=== PATIENT | male | born 1955 | race Caucasian/White ===

== ENCOUNTER 2021-02-15 09:41 | Inpatient (IN) | payer MEDICARE, SELFPAY ==
[2021-02-15] VITALS (16 sets, daily range): BP systolic 117–170; BP diastolic 76–101; PULSE 88–106; RESP 13–25; TEMP 36.1–36.9; O2SAT 83–99; BMI 27.0
--- NOTE | 2021-02-15 10:00 | EKG12_ITS ---
Test Reason : SOB Blood Pressure : / mmHG Vent. Rate : 094 BPM Atrial Rate : 094 BPM P-R Int : 164 ms QRS Dur : 130 ms QT Int : 384 ms P-R-T Axes : 077 068 060 degrees QTc Int : 480 ms Normal sinus rhythm Right atrial enlargement Right bundle branch block Abnormal ECG Confirmed by SAHRA PABON, YONATAN ([id number]), book editor PRAKASH ECHEVARRIA ([id number]) on 02/20/2021 9:30:42 AM Referred By: MICHELLE/NED Confirmed By:CASEY BOCANEGRA MD
--- NOTE | 2021-02-15 10:02 | ED.VIS.DYS ---
HPI History of Present Illness Chief Complaint: Shortness of Breath Informant: patient and family Narrative Narrative: Patient presents with dyspnea. This started approximately a week to 10 days ago. 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 He did sanding. He did try a mask. A couple days after that he started having dyspnea. He has been having a lot of wheezing. He has been using his inhalers as he does have COPD. However, when specifically asked he does have some myalgias. He also has some subjective fevers. No nausea vomiting or diarrhea. No loss of taste or smell. He has not had Covid vaccines. No known exposure to Covid. No one around him has been sick. His albuterol does help. Nothing really makes it worse. Patient does have a history of right-sided lung cancer. He states it was small and treated with chemotherapy and radiation. He is told it should be completely treated. This was done 4 years ago. [facility] Medical History AAA (abdominal aortic aneurysm) Acute respiratory failure with hypoxemia Lung cancer Home Medications albuterol sulfate 90 mcg/actuation aerosol inhaler 2 puff INHALATION Q6H PRN 02/15/21 [History Last Taken 02/15/21] aspirin 81 mg tablet,delayed release 81 mg PO DAILY 02/15/21 [History Last Taken 02/14/21] fluticasone fur. 100 mcg-umeclid 62.5 mcg-vilant 25 mcg inhalat.powder 1 inh INHALATION DAILY 02/15/21 [History Last Taken 02/15/21] levothyroxine 125 mcg PO DAILY 02/15/21 [History Last Taken 02/15/21] metoprolol succinate 25 mg tablet,extended release 24 hr 75 mg PO DAILY tab 02/15/21 [History Last Taken 02/14/21] primidone 50 mg tablet 150 mg PO QHS tab 02/15/21 [History Last Taken 02/14/21] Allergy/AdvReac Type Severity Reaction Status Date / Time No Known Allergies Allergy Unverified 02/15/21 09:47 Surgical History S/P AAA repair Social History Smoking Status: Former smoker ROS ROS ED Constitutional Constitutional ED: Reports chills Eyes Eyes: Denies blurry vision or change in vision ENT ENT ED: Reports rhinorrhea; Denies ear pain or sore throat Cardiovascular Cardiovascular: Denies chest pain Respiratory/Chest Respiratory/Chest: Reports cough and dyspnea; Denies sputum Gastrointestinal Gastrointestinal: Reports abdominal pain; Denies diarrhea, nausea or vomiting Genitourinary Genitourinary ED: Denies dysuria Musculoskeletal Musculoskeletal: Reports myalgias; Denies arthralgias Integumentary Denies rash Neurologic Neurologic: Denies headache(s), paresthesias or weakness Psychiatric Psychiatric: Denies depression Endocrine Endocrinology: Denies polydipsia or polyuria Hematologic/Lymphatic Hematologic/Lymphatic: Denies easy bleeding or easy bruising Allergic/Immunologic Allergic/Immunologic ED: Denies mouth swelling or urticaria EXAM Physical Exam Const Vital Signs: 02/15/21 09:42 02/15/21 09:44 02/15/21 10:22 Temperature 98.4 F Temperature Source Temporal Pulse Rate 104 H 106 H 94 Respiratory Rate 22 H 24 H 18 Respiratory Effort Short of Breath Labored Accessory Muscle Use Pursed Lip Retracting Respiratory Depth Normal Respiratory Pattern Tachypnea Blood Pressure 170/101 H Blood Pressure Mean 124 Pulse Ox 83 98 Oxygen Delivery Method Room Air Nasal Cannula Oxygen Flow Rate (L/min) 4 02/15/21 11:39 02/15/21 11:56 02/15/21 12:02 Temperature Temperature Source Pulse Rate 88 99 Respiratory Rate 20 H 18 Respiratory Effort Respiratory Depth Respiratory Pattern Blood Pressure 135/94 H Blood Pressure Mean 107 Pulse Ox 96 96 Oxygen Delivery Method Nasal Cannula Oxygen Flow Rate (L/min) 2 02/15/21 12:03 02/15/21 13:46 02/15/21 14:00 Temperature 98.4 F Temperature Source Temporal Pulse Rate 98 95 Respiratory Rate 25 H 13 Respiratory Effort Respiratory Depth Respiratory Pattern Blood Pressure 142/86 H Blood Pressure Mean 104 Pulse Ox 96 96 96 Oxygen Delivery Method Nasal Cannula Nasal Cannula Nasal Cannula Oxygen Flow Rate (L/min) 2 2 2 Positive well nourished and well developed General Appearance ED: well developed HEENT Reports moist mucous membranes Eyes General Eye ED: Negative for pale conjunctiva Neck no meningeal signs and no JVD Resp normal respiratory effort and No clear to auscultation bilaterally Auscultation: wheezes; Negative for rales, rhonchi or diminished lung sounds Cardio regular rate and regular rhythm GI non-tender Palpation: soft Back/Spine normal to inspection Extremity normal to inspection General Extremety ED: Negative for tenderness Neuro oriented x3 Sensorium / Orientation: alert, oriented to person and oriented to place Psych mental status grossly normal Thought Process: normal thought process Skin no wounds Lesions: no lesions Rashes: no rashes MDM MDM MDM Narrative Medical decision making narrative: Blood work shows normal lactate. Electrolytes are normal. CBC is normal. Chest x-ray shows some increased density in the right apex which may be due to radiation changes. Cannot exclude an underlying mass. Patient is still wheezing. He was feeling a bit better though. We gave him another breathing treatment. We cannot get him off oxygen. Even trying to walk him he desaturated to 89% very quickly when he just got off the bed on 2 L of oxygen. He is not on oxygen at home. I think he needs to come in. After calling for admission, the patient developed pain in the left anterior chest. He states it was not there before it just started. It seems to be focal. He describes it as a cramp. I did do a repeat EKG that does not show interval change. However, with his dyspnea and his history we will do a CTA at this time. This is currently pending. The CTA did not show signs of pulmonary embolus. Patient is being admitted. Lab Data Attestation: I reviewed the patient's lab results. Labs: Laboratory Results - last 24 hr 02/15/21 02/15/21 02/15/21 10:05 10:05 10:05 WBC 10.1 RBC 4.58 L Hgb 14.9 Hct 42.5 MCV 92.8 MCH 32.5 H MCHC 35.1 RDW Std Deviation 46.5 H RDW Coeff of Yola 13.8 Plt Count 178 MPV 9.7 Immature Gran % (Auto) 0.500 Neut % (Auto) 80.7 H Lymph % (Auto) 7.4 L [place] % (Auto) 11.2 H Eos % (Auto) 0.0 Baso % (Auto) 0.2 Absolute Neuts (auto) 8.2 H Absolute Lymphs (auto) 0.75 L Nucleated RBC % 0 Sodium 128 L Potassium 4.4 Chloride 90 L Carbon Dioxide 26.0 Anion Gap 12 BUN 18 Creatinine 1.01 Estim Creat Clear Calc 70.97 Est GFR (MDRD) Af Amer 95 Est GFR (MDRD) Non-Af 78 BUN/Creatinine Ratio 17.8 Glucose 112 H Lactic Acid 1.7 Calcium 8.7 Procalcitonin 02/15/21 10:05 WBC RBC Hgb Hct MCV MCH MCHC RDW Std Deviation RDW Coeff of Yola Plt Count MPV Immature Gran % (Auto) Neut % (Auto) Lymph % (Auto) [place] % (Auto) Eos % (Auto) Baso % (Auto) Absolute Neuts (auto) Absolute Lymphs (auto) Nucleated RBC % Sodium Potassium Chloride Carbon Dioxide Anion Gap BUN Creatinine Estim Creat Clear Calc Est GFR (MDRD) Af Amer Est GFR (MDRD) Non-Af BUN/Creatinine Ratio Glucose Lactic Acid Calcium Procalcitonin 0.12 H Radiography Diagnostic Testing: Clinical Impression(s) from Imaging Studies Chest X-Ray 02/15/21 10:35 IMPRESSION: Increased density in the right apex with retraction of the right hilum. There is evidence of the pleural thickening at that site. This may represent post radiation changes. Underlying mass lesion cannot be excluded. Electronically Signed: Cooper Alba MD at 10:50 EST , Service support , Chest CTA 02/15/21 12:27 IMPRESSION: There is no evidence of pulmonary embolism. Mild loss in the right upper lobe with evidence of bronchiectasis and postobstructive pneumonitis. Bronchoscopy is recommended for further evaluation. Electronically Signed: Cooper Alba MD at 13:12 EST , Service support , EKG Initial EKG: Comments: EKG done for dyspnea read by me showed normal sinus rhythm with a rate of 94. No ventricular ectopy. He does have right bundle branch block and right atrial enlargement. No acute ST elevation or depression. LA interval is normal. QRS duration is slightly long with his bundle branch block. QTc is normal. Repeat EKG shows no acute interval change. Discharge Plan Dx/Rx/DC Orders Clinical Impression: COPD exacerbation, Acute respiratory failure with hypoxemia Disposition Disposition: Acute Care Hospital [facility] Discharge Date/Time: 02/15/21 14:37
[2021-02-15] MEDS: MethylPREDNISolone 125 MG/2 ML Vial IV (10:13)
[2021-02-15 10:16] LABS: Absolute Lymphocyte Count 0.75 X10^3/uL (0.83-4.51); Absolute Neutrophil Count 8.2 X10^3/uL (2.0-7.7); Basophil# 0.02 X10^3/uL; Basophil% 0.2 % (0-1); Hematocrit 42.5 % (40-54); Hemoglobin 14.9 g/dL (13.0-16.5); Lymphocyte # 0.75 X10^3/ul (0.83-4.51); Lymphocyte % 7.4 % (19-41); Mean Corp Hgb Conc 35.1 g/dL (32-36); Mean Corpuscular Hgb 32.5 pg (27.0-32.0); Mean Corpuscular Volume 92.8 fL (80-94); Mean Platelet Vol. 9.7 fl (6.2-12.0); Monocyte# 1.14 X10^3/uL; Monocyte% 11.2 % (0-10); NRBC Flagged by Analyzer 0 % (0-5); Neutrophil # 8.18 X10^3/uL (2.7-7.7); Neutrophil % 80.7 % (47-70); Platelet Count 178 K/mm3 (150-450); RBC Distribution Width CV 13.8 % (11.6-14.6); RBC Distribution Width SD 46.5 fl (35.1-43.9); Red Blood Count 4.58 M/mm3 (4.6-6.2); White Blood Count 10.1 K/mm3 (4.4-11.0)
[2021-02-15] MEDS: Ipratropium/Albuterol Sulfate 3 ML AMPUL.NEB INHALATION ×3 (10:21→19:38)
[2021-02-15] MEDS: Albuterol 2.5 MG/3 ML VIAL.NEB. INHALATION ×2 (10:21→11:55)
[2021-02-15 10:31] LABS: Anion Gap 12 (5-15); BUN 18 mg/dL (7-18); BUN/Creat Ratio 17.8 RATIO (10-20); Calcium,Total 8.7 mg/dL (8.5-10.1); Chloride 90 mmol/L (98-107); Creatinine, Serum 1.01 mg/dL (0.70-1.30); EST Glomerular Filtration Rate 78 mL/min (>60); Est Glom Filt Rate - Afr Amer 95 mL/min (>60); Estimated Creatinine Clearance 70.97 ml/min; Glucose 112 mg/dL (74-106); Potassium 4.4 mmol/L (3.5-5.1); Sodium Level 128 mmol/L (136-145)
--- NOTE | 2021-02-15 10:35 | RAD_ITS ---
STUDY: X-RAY CHEST REASON FOR EXAM: Male, 65 years old. SOB TECHNIQUE: Single AP portable view of the chest. COMPARISON: None. FINDINGS: EKG electrodes are seen. There is a soft tissue density in the right lung apex with the cephalic retraction of the right hilum suggestive of possible post radiation scarring. Underlying mass lesion cannot be excluded. There is also evidence of a pleural thickening at that site. Normal size heart. Normal mediastinum and shaw. Normal visualized pulmonary arteries. Normal visualized aortic arch and descending thoracic aorta. There are diffuse degenerative changes of the visualized thoracic spine. Prior fusion of the lower cervical spine. Normal visualized ribs, clavicles, and shoulders. There is no demonstrated abnormality of the visualized soft tissue structures of the upper abdomen. RAD/Chest 1 View (Portable) IMPRESSION: Increased density in the right apex with retraction of the right hilum. There is evidence of the pleural thickening at that site. This may represent post radiation changes. Underlying mass lesion cannot be excluded. Electronically Signed: Cooper Alba MD at 10:50 EST , Service support ,
[2021-02-15 11:03] LABS: Lactic Acid 1.7 mmol/L (0.4-1.9)
--- NOTE | 2021-02-15 12:27 | CT_ITS ---
STUDY: CTA CHEST REASON FOR EXAM: Male, 65 years old. 6 day history of chest pain and shortness of breath. History of lung cancer. RADIATION DOSAGE (If Supplied By Facility): CTDIvol = ( 9.48 ) mGy, DLP = ( 447.81 ) mGycm TECHNIQUE: The examination was performed with the intravenous administration of IV 100mL Isovue-370. Post-processing of the angiographic images was performed, with multiplanar reformation and 3D reconstruction. Individualized dose optimization techniques were used for this CT. COMPARISON: None. FINDINGS: Normal enhancement of the main pulmonary artery and right and left pulmonary arteries. Normal enhancement of the bilateral peripheral pulmonary arteries. There is no demonstrated pulmonary embolism. There is atherosclerotic calcification of the aortic arch with tortuosity. There is no demonstrated aortic dissection. Small pericardial effusion. There are calcifications of the coronary arteries. Normal mediastinum. Normal hilar regions. Normal visualized trachea and bronchi. There is evidence of volume loss in the right upper lobe with evidence of bronchiectasis along the posterior aspect of the right upper lobe abutting the minor fissure. There is also evidence of enlargement of the right hilar lymph node with postobstructive pneumonitis. Correlation with bronchoscopy is recommended. Hyperinflation and emphysematous changes. Normal pleura. Normal chest wall structures. There are degenerative changes of thoracic spine. Hyperplasia of the adrenal glands. CT/CTA Chest W/WO Contrast IMPRESSION: There is no evidence of pulmonary embolism. Mild loss in the right upper lobe with evidence of bronchiectasis and postobstructive pneumonitis. Bronchoscopy is recommended for further evaluation. Electronically Signed: Cooper Alba MD at 13:12 EST , Service support ,
--- NOTE | 2021-02-15 12:41 | PCM.HP.STD ---
HPI - General General Date of Admission: 02/15/21 Date of Service: 02/15/21 Chief Complaint: Worsening dyspnea HPI Narrative The patient is a 65 y/o M w/ PMHx: Hx remote LE DVT not on any current treatment, AAA s/p repair, Former Tobacco use, Chronic COPD, HTN, HLD, Chronic tremor, Hypothyroidism, Lung cancer s/p chemotherapy and radiation 2017 with transition to oral therapy x 1 year and off who presents to the [facility] ED on 02/15/21 with history of recently working with [employer] prior to current presentation, working with his son and notes wearing a mask however over the last 5 days progressively worsening dyspnea, notable wheezing but not improving with no recent marked cough, fever, chills. He does not sharp anterior low chest pain with pending CTPA. He describes it as a cramp. Work-up in the ED included 1.3, heart rate initially 110, respiratory rate 21, 83% on room air eventually improving to 90% on 4 L and eventually decreasing to 96% on 2 L, heart rate improved 88, respiratory rate less than to 18, CBC with WBC 10.1, hemoglobin 14.9, platelet 178 with left shift and lymphopenia, BMP with sodium 128, chloride 90, glucose 112, lactic acid 1.7, rapid Covid antigen negative, blood culture x2 pending per ED, chest x-ray with increased density at the right apex with retraction of the right hilum with evidence of pleural thickening at that site possibly representing post radiation changes however underlying mass lesion cannot be excluded, EKG with SR with RBBB without acute evidence of ischemia with repeat similar with recent pleuritic chest pain, CTPA eventually resulted with no evidence of any pulmonary embolism, mild loss right upper lobe with evidence of bronchiectasis and postobstructive pneumonitis with bronchoscopy recommended. In the ED patient administered aerosols as well as Solu-Medrol therapy. [facility] Medical History (Updated 02/15/21 @ 18:[address] Dalia Escobar MD) AAA (abdominal aortic aneurysm) COPD (chronic obstructive pulmonary disease) Former tobacco use History of lung cancer HLD (hyperlipidemia) HTN (hypertension) Hypothyroidism Tremor Home Medications albuterol sulfate 90 mcg/actuation aerosol inhaler 2 puff INHALATION Q6H PRN 02/15/21 [History Last Taken 02/15/21] aspirin 81 mg tablet,delayed release 81 mg PO DAILY 02/15/21 [History Last Taken 02/14/21] fluticasone fur. 100 mcg-umeclid 62.5 mcg-vilant 25 mcg inhalat.powder 1 inh INHALATION DAILY 02/15/21 [History Last Taken 02/15/21] levothyroxine 125 mcg PO DAILY 02/15/21 [History Last Taken 02/15/21] metoprolol succinate 25 mg tablet,extended release 24 hr 75 mg PO DAILY tab 02/15/21 [History Last Taken 02/14/21] primidone 50 mg tablet 150 mg PO QHS tab 02/15/21 [History Last Taken 02/14/21] Allergy/AdvReac Type Severity Reaction Status Date / Time No Known Allergies Allergy Unverified 02/15/21 09:47 no significant family history (Patient does not know his family history well but denies any marked maternal or paternal family history including heart disease, diabetes, cancer.) Surgical History S/P AAA repair Social History (Updated 02/15/21 @ 18:[address] Dalia Escobar MD) household members: other details: Patient notes his nephew is currently residing with him. Smoking Status: Former smoker how long ago did patient quit smoking: Quit 1 year ago, prior up to 2 ppd, decreased recently 2-3 cig/day. alcohol intake: never substance use type: does not use ROS ROS Narrative Admission Review of Systems: CONSTITUTIONAL: No weight loss, fever, chills, + weakness or fatigue. HEENT: Eyes: No visual loss, blurred vision, double vision or yellow sclerae. Ears, Nose, Throat: No hearing loss, sneezing, congestion, runny nose or sore throat. SKIN: No rash or itching, lesions, wounds. CARDIOVASCULAR: + Pleuritic chest discomfort. No palpitations, edema, orthopnea, syncopal events. RESPIRATORY: + shortness of breath, cough without marked sputum, wheezing, No hemoptysis. GASTROINTESTINAL: + anorexia, No nausea, vomiting or diarrhea, abdominal pain, melena, BRBPR. GENITOURINARY: No dysuria, frequency, urgency or retention. NEUROLOGICAL: No headache, dizziness, syncope, paralysis, ataxia, numbness or tingling in the extremities, focal weakness, change in bowel or bladder control, seizure. MUSCULOSKELETAL: + muscle, back pain, joint pain or stiffness. HEMATOLOGIC: No anemia, bleeding or bruising. LYMPHATICS: No enlarged nodes. No history of splenectomy. PSYCHIATRIC: No history of depression or anxiety. ENDOCRINOLOGIC: No reports of sweating, cold or heat intolerance. No polyuria or polydipsia. ALLERGIES: No history of asthma, hives, eczema or rhinitis. Vital Signs Vital Signs Vital Signs: 02/15/21 09:42 02/15/21 09:44 02/15/21 10:22 Temperature 98.4 F Temperature Source Temporal Pulse Rate 104 H 106 H 94 Respiratory Rate 22 H 24 H 18 Respiratory Effort Short of Breath Labored Accessory Muscle Use Pursed Lip Retracting Respiratory Depth Normal Respiratory Pattern Tachypnea Blood Pressure 170/101 H Blood Pressure Mean 124 Pulse Ox 83 98 Oxygen Delivery Method Room Air Nasal Cannula Oxygen Flow Rate (L/min) 4 02/15/21 11:39 02/15/21 11:56 02/15/21 12:02 Temperature Temperature Source Pulse Rate 88 99 Respiratory Rate 20 H 18 Respiratory Effort Respiratory Depth Respiratory Pattern Blood Pressure 135/94 H Blood Pressure Mean 107 Pulse Ox 96 96 Oxygen Delivery Method Nasal Cannula Oxygen Flow Rate (L/min) 2 02/15/21 12:03 Temperature Temperature Source Pulse Rate Respiratory Rate Respiratory Effort Respiratory Depth Respiratory Pattern Blood Pressure Blood Pressure Mean Pulse Ox 96 Oxygen Delivery Method Nasal Cannula Oxygen Flow Rate (L/min) 2 Weight Weight: 182 lb 15.739 oz Body Mass Index (BMI) 27.0 Physical Exam Narrative Physical Examination: General: Awake, alert, oriented x 3 and cooperative, seated upright in the ED bed, fatigued, no obvious evidence of any respiratory distress, mildly increased respiratory rate. Skin: Normal color, normal turgor, no icterus, no cyanosis. HEENT: AT/NC, EOMI, PERRLA, mildly dry MM, no carotid bruits or JVD noted. Lungs: Significantly diffusely diminished, mildly increased respiratory rate, no evidence of significant distress, very tight, only occasional soft end expiratory wheeze noted Heart: Mildly tachycardic with regular rhythm; no gallop, rub audible. Abdomen: Soft, overweight, NTTP, ND, mildly hyperactive BS, no HSM. Extremities: No cyanosis, clubbing, or edema. Neurological: Patient awake, alert, oriented as noted, cognitive function intact; pupils equally reactive to light and accommodation, cranial nerves II-XII grossly normal, moving all 4 extremities, no focal deficits, strength moderately to severely globally decreased secondary to acute presentation. Psychiatric: Affect appears fatigued, ill-appearing, no acute evidence of depressive or anxiety feelings. Results Lab / Micro Data Result Diagrams: 02/15/21 10:05 02/15/21 10:05 Labs: Laboratory Results - last 24 hr 02/15/21 10:05: WBC 10.1, RBC 4.58 L, Hgb 14.9, Hct 42.5, MCV 92.8, MCH 32.5 H, MCHC 35.1, RDW Std Deviation 46.5 H, RDW Coeff of Yola 13.8, Plt Count 178, MPV 9.7, Immature Gran % (Auto) 0.500, Neut % (Auto) 80.7 H, Lymph % (Auto) 7.4 L, [place] % (Auto) 11.2 H, Eos % (Auto) 0.0, Baso % (Auto) 0.2, Absolute Neuts (auto) 8.2 H, Absolute Lymphs (auto) 0.75 L, Nucleated RBC % 0 02/15/21 10:05: Sodium 128 L, Potassium 4.4, Chloride 90 L, Carbon Dioxide 26.0, Anion Gap 12, BUN 18, Creatinine 1.01, Estim Creat Clear Calc 70.97, Est GFR (MDRD) Af Amer 95, Est GFR (MDRD) Non-Af 78, BUN/Creatinine Ratio 17.8, Glucose 112 H, Calcium 8.7 02/15/21 10:05: Lactic Acid 1.7 Micro: Microbiology 02/15/21 09:55 Nasal Secretion SARS-CoV-2 Antigen (Rapid) - Final Radiology Impression Chest X-Ray 02/15/21 10:35 IMPRESSION: Increased density in the right apex with retraction of the right hilum. There is evidence of the pleural thickening at that site. This may represent post radiation changes. Underlying mass lesion cannot be excluded. Electronically Signed: Cooper Alba MD at 10:50 EST , Service support , Assessment & Plan Assessment/Plan (1) COPD exacerbation: (2) Hypoxia: PLAN: The patient is a 65 y/o M w/ PMHx: Hx remote LE DVT not on any current treatment, AAA s/p repair, Former Tobacco use, Chronic COPD, HTN, HLD, Chronic tremor, Hypothyroidism, Lung cancer s/p chemotherapy and radiation 2017 with transition to oral therapy x 1 year and off who presents to the [facility] ED on 02/15/21 with history of recently working with [employer] prior to current presentation, working with his son and notes wearing a mask however over the last 5 days progressively worsening dyspnea, notable wheezing but not improving with no recent marked cough, fever, chills. #1. Acute on chronic COPD exacerbation w/ Acute respiratory insufficiency with hypoxia: We will admit to medical surgical status given no evidence of pulmonary emboli, stable on oxygen supplementation, maintain on oxygen with wean as tolerated to room air although suspect may need supplementation at discharge, continue ATC duonebs, PRN albuterol, IV methylprednisolone, HOB, IS parameters, defer antibiotics as suspect viral etiology, procalcitonin requested as well as respiratory viral panel and sputum culture. Given CTPA findings with mild loss of the right upper lobe with evidence of bronchiectasis and postobstructive pneumonitis did discuss case with pulmonary medicine who will evaluate and in the interim requested records from Dr. Dalal office in case this is the primary area with patient did have radiation therapy. #2. Hyponatremia, unclear if chronic, possibly mild hypovolemia versus potential relation with patient history of underlying lung cancer, will continue judicious hydration, repeat C BMP in a.m. and if remains decreased we will further evaluate. #3. Hypertension: Continue home regimen including metoprolol with hold parameters as needed, PRN hydralazine. #4. Hyperlipidemia: Not on regimen, defer to outpatient. #5. Hypothyroidism: We will continue patient home Synthroid regimen. #6. History AAA: Status post repair, continued on aspirin, hypertensive regimen, not on statin therapy, will add moderate dose statin. #7. History of lung cancer: Status post chemotherapy and radiation 2017 with transition to unclear oral therapy x1 year, previously followed with Dr. Dalal, records requested especially given #1. #8. Former tobacco use: Encourage continued tobacco cessation. #9. DVT prophylaxis: SCDs, hold chemoprophylaxis in case potential plan for bronchoscopy as noted above #1. #10. CODE status: Patient does not have healthcare power of attorney lawyer or living will in place. Discussed CODE status at length including difference between FULL code, DNR-CCA and DNR-CC status. Following discussions about the differences in these status, requested Full Code status. Advanced Care Planning Face to Face Time: 16 minutes. Charges/Coding Visit Charges Inpatient E&M: 95120 Init Hosp L3 Procedures Hospitalists Procedures: 93060 Advncd Care Plan 30 Min
--- NOTE | 2021-02-15 12:48 | EKG12_ITS ---
Test Reason : CHEST TIGHTNESS Blood Pressure : / mmHG Vent. Rate : 098 BPM Atrial Rate : 098 BPM P-R Int : 166 ms QRS Dur : 132 ms QT Int : 384 ms P-R-T Axes : 078 069 062 degrees QTc Int : 490 ms Normal sinus rhythm Right atrial enlargement Right bundle branch block Abnormal ECG Confirmed by SAHRA PABON, YONATAN ([id number]), deputy editor in chief PRAKASH ECHEVARRIA ([id number]) on 02/20/2021 9:31:26 AM Referred By: MICHELLE/NED Confirmed By:CASEY BOCANEGRA MD
[2021-02-15 14:39] LABS: Procalcitonin 0.12 ng/mL (0.00-0.09)
[2021-02-15] MEDS: 0.9% Normal Saline 1,000 ML 100 ML IV (15:32)
--- NOTE | 2021-02-15 15:33 | PCS.PANDOC ---
PANDEMIC DOCUMENTATION INITIATED: Date: 10/31/2020 Time: 190
[2021-02-15] MEDS: Ensure Clear 120 ML Liquid PO (21:10)
[2021-02-15] MEDS: Primidone 50 MG Tablet 150 MG PO (21:11)
[2021-02-15] MEDS: Famotidine 20 MG Tablet PO (21:11)
[2021-02-15] MEDS: Atorvastatin Calcium 40 MG Tablet PO (21:11)
[2021-02-16] VITALS (13 sets, daily range): BP systolic 123–147; BP diastolic 74–96; PULSE 78–96; RESP 18–20; TEMP 36.6–36.7; O2SAT 95–98
[2021-02-16] MEDS: guaiFENesin 10 ML UDC (200MG/10ML) 20 ML PO ×4 (00:45→18:23)
[2021-02-16] MEDS: guaiFENesin/D-Methorphan TAB.SR.12H 1 TABLET PO ×3 (01:28→20:39)
[2021-02-16] MEDS: BENZOCAINE/MENTHOL 1 LOZENGE MUCOUS MEM (05:17)
[2021-02-16] MEDS: Levothyroxine 125 MCG Tablet PO (05:31)
[2021-02-16] MEDS: 0.9% Saline Lock 10 ML Syringe IV ×2 (05:31→13:14)
--- NOTE | 2021-02-16 06:39 | PN.HOSP_ITS ---
Subjective Subjective Patient overnight with no acute events per self and per nursing report. Patient did have significant severe coughing fits throughout the night and did report some shortness of breath and ongoing wheezing. He did get some sleep following cough regimen administration. Discussed current evaluation which included re markable respiratory viral panel for RSV B. Discussed plan for pulmonary medicine evaluation today. Patient denies fevers, chills, nausea, emesis, abdominal pain, chest pain. Objective Data Objective Data Vital Signs: Vital Signs Temp Pulse Resp BP Pulse Ox 98.1 F 86 20 H 134/81 H 96 02/16/21 03:20 02/16/21 03:20 02/16/21 03:20 02/16/21 03:20 02/16/21 03:20 Oxygen Flow Rate (L/min) 3 Oxygen Delivery Method Nasal Cannula Weight: 182 lb 15.739 oz Body Mass Index (BMI) 27.0 Intake & Output: Intake and Output for Last 24 Hours 02/14/21 02/15/21 02/16/21 23:59 23:59 23:59 Intake Total 400 / 600 1260 / 1260 Output Total 600 / 600 300 / 300 Balance -200 / 0 960 / 960 Lab / Micro Data Result Diagrams: 02/16/21 06:34 02/16/21 06:34 Labs: Laboratory Results - last 24 hr 02/15/21 10:05: WBC 10.1, RBC 4.58 L, Hgb 14.9, Hct 42.5, MCV 92.8, MCH 32.5 H, MCHC 35.1, RDW Std Deviation 46.5 H, RDW Coeff of [place]ola 13.8, Plt Count 178, MPV 9.7, Immature Gran % (Auto) 0.500, Neut % (Auto) 80.7 H, Lymph % (Auto) 7.4 L, [place] % (Auto) 11.2 H, Eos % (Auto) 0.0, Baso % (Auto) 0.2, Absolute Neuts (auto) 8.2 H, Absolute Lymphs (auto) 0.75 L, Nucleated RBC % 0 02/15/21 10:05: Sodium 128 L, Potassium 4.4, Chloride 90 L, Carbon Dioxide 26.0, Anion Gap 12, BUN 18, Creatinine 1.01, Estim Creat Clear Calc 70.97, Est GFR (MDRD) Af Amer 95, Est GFR (MDRD) Non-Af 78, BUN/Creatinine Ratio 17.8, Glucose 112 H, Calcium 8.7 02/15/21 10:05: Lactic Acid 1.7 02/15/21 10:05: Procalcitonin 0.12 H Micro: Microbiology 02/15/21 18:00 Urine, Clean Catch Legionella Antigen - Final 02/15/21 18:00 Urine, Clean Catch Streptococcus pneumoniae Antigen (M - Final 02/15/21 15:24 Mucosa - Nasopharyngeal Respiratory Panel (PCR) - Final RSV B 02/15/21 09:55 Nasal Secretion SARS-CoV-2 Antigen (Rapid) - Final Radiography Diagnostic Testing: Radiology Impression Chest X-Ray 02/15/21 10:35 IMPRESSION: Increased density in the right apex with retraction of the right hilum. There is evidence of the pleural thickening at that site. This may represent post radiation changes. Underlying mass lesion cannot be excluded. Electronically Signed: Cooper Alba MD at 10:50 EST , Service support , Chest CTA 02/15/21 12:27 IMPRESSION: There is no evidence of pulmonary embolism. Mild loss in the right upper lobe with evidence of bronchiectasis and postobstructive pneumonitis. Bronchoscopy is recommended for further evaluation. Electronically Signed: Cooper Alba MD at 13:12 EST , Service support , Physical Exam Narrative Physical Examination: General: Awake, alert, oriented x 3 and cooperative, seated upright in the PCU bed, less fatigue, harsh coughing fits during evaluation. Skin: Normal color, normal turgor, no icterus, no cyanosis. HEENT: AT/NC, EOMI, PERRLA, mildly dry MM. Lungs: Significantly diffusely diminished, mildly increased respiratory rate, more end expiratory wheezing than day prior, no evidence of distress. Heart: Currently regular rate with regular rhythm; no gallop, rub audible. Abdomen: Soft, overweight, NTTP, ND, normalized BS. Extremities: No cyanosis, clubbing, or edema. Neurological: Patient awake, alert, oriented as noted, cognitive function intact; pupils equally reactive to light and accommodation, cranial nerves II- XII grossly normal, moving all 4 extremities, no focal deficits, strength moderately to severely globally decreased secondary to acute presentation. Psychiatric: Affect appears less fatigued, improved from day prior, no acute evidence of depressive or anxiety feelings. Assessment & Plan Assessment/Plan (1) COPD exacerbation: (2) Hypoxia: PLAN: The patient is a 65 y/o M w/ PMHx: Hx remote LE DVT not on any current treatment, AAA s/p repair, Former Tobacco use, Chronic COPD, HTN, HLD, Chronic tremor, Hypothyroidism, Lung cancer s/p chemotherapy and radiation 2017 with transition to oral therapy x 1 year and off who presents to the [facility] ED on 02/15/21 with history of recently working with [employer] prior to current presentation, working with his son and notes wearing a mask however over the last 5 days progressively worsening dyspnea, notable wheezing but not improving with no recent marked cough, fever, chills. #1. Acute on chronic COPD exacerbation w/ Acute respiratory insufficiency with hypoxia secondary to acute RSV B viral bronchitis: Patient mated to medical surgical floor, continued on oxygen supplementation with wean as tolerated to room air, continue ATC duonebs, PRN albuterol, IV methylprednisolone, HOB, IS parameters, defer antibiotics as suspect viral etiology, CTPA findings with mild loss of the right upper lobe with evidence of bronchiectasis and postobstructive pneumonitis did discuss case with pulmonary medicine. Records requested from Dr. Dalal office however pulmonary medicine was able to see these records on [facility] sink and it seems as though patient has had chronic right upper lobe findings likely secondary to prior radiation therapy. Likely bronchoscopy will not be performed. #2. Hyponatremia, unclear if chronic, possibly mild hypovolemia versus potential relation with patient history of underlying lung cancer: Patient administered judicious hydration, repeat CMP in a.m. with mild decrease sodium 126, will obtain Alan, UCr, Osm, TSH, mag to further elucidate. #3. Hypertension: Continue home regimen including metoprolol with hold parame ters as needed, PRN hydralazine. #4. Hyperlipidemia: Not on regimen, defer to outpatient. #5. Hypothyroidism: We will continue patient home Synthroid regimen. #6. History AAA: Status post repair, continued on aspirin, hypertensive regimen, not on statin therapy, will add moderate dose statin. #7. History of lung cancer: Status post chemotherapy and radiation 2017 with transition to unclear oral therapy x1 year, previously followed with Dr. Dalal, records requested especially given #1. #8. Former tobacco use: Encourage continued tobacco cessation. #9. DVT prophylaxis: SCDs, given no plan bronchoscopy will initiate DVT prophylaxis, Lovenox. #10. CODE status: Patient does not have healthcare power of contracts attorney or living will in place. Full Code status. Charges/Coding Visit Charges Inpatient E&M: 44939 Subs Hosp L2
[2021-02-16] MEDS: Ipratropium/Albuterol Sulfate 3 ML AMPUL.NEB INHALATION ×5 (06:55→23:12)
--- NOTE | 2021-02-16 07:13 | EX.PCM.CONCC ---
Assessment & Plan Assessment/Plan (1) COPD exacerbation: PLAN: RECOMMENDATIONS: 1. Wean supplemental oxygen to maintain saturations at or above 90%. 2. Continue scheduled bronchodilators and IV steroids. 3. Encourage incentive spirometer use and mobilize patient as tolerated. 4. Perform walking oximetry prior to consideration for discharge home. 5. Close outpatient follow-up with the patient's primary special delivery carrier is warranted. IMPRESSIONS: 1. COPD exacerbation with hypoxemia secondary to RSV infection The patient presented with worsening shortness of breath of approximately 2 weeks duration and subsequently tested positive for RSV B. He does appear to be experiencing an acute COPD exacerbation. The patient has on a triple therapy inhaler regimen at his baseline. For now, I agree with continuing scheduled bronchodilators and IV steroids. The exact severity of his underlying obstructive lung disease is not known. I do anticipate a rather prolonged recovery period. The patient does deny using supplemental oxygen at his baseline. Continue to wean supplemental O2 to maintain oxygen saturations at or above 90%. Encourage incentive spirometer use and mobilize patient as tolerated. 2. 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 However, I would recommend that the patient continue to follow-up with his special delivery carrier on an outpatient basis. 3. History of tobacco dependency in remission/hypertension/hyperlipidemia/hypothyroidism Complicates care, management, recovery and prognosis. Continue home medications as indicated. This note was generated with [employer] dictation software. It may contain incorrect words, spelling, and punctuation that were not noted in checking the note before signing. HPI Consult Data Date of Consult: 02/16/21 HPI Narrative Reason for Consultation: COPD exacerbation, abnormal chest imaging HPI Narrative: The patient is a 65-year-old male, with a history as outlined below, who presented to the emergency department on February 15 with reported worsening dyspnea. The patient's medical history is significant for hypertension, peripheral vascular disease, and COPD. CT scan in July 2017 revealed a large pleural-based right upper lobe lung mass with invasion into the chest wall. Follow-up CT-guided lung biopsy completed in August 2017 was positive for invasive squamous cell carcinoma. The patient underwent definitive chemo/radiation with carbo/paclitaxel, which was completed in October 2017. He subsequently completed a year of durvalumab, which completed in November 2018. According to documentation from [facility], the patient has stable appearing fibrosis involving the right upper lobe consistent with prior radiation therapy. On presentation to the emergency department, the patient was noted to be afebrile and hemodynamically stable. Initial laboratory evaluation revealed no evidence of a leukocytosis. Chemistry profile was notable for a sodium of 128, chloride of 90 and creatinine of 1.01. CTA chest showed no evidence for pulmonary embolism. Enlargement of the right hilar lymph node was noted along with sequelae of right upper lobe lung cancer status post radiation. Rapid coronavirus antigen testing was negative. Respiratory viral panel was positive for RSV. Strep and urine Legionella antigens were negative. The patient was started on scheduled bronchodilators and IV steroids. He was admitted to the progressive care unit for further management. [facility] Medical History (Updated 02/15/21 @ 18:[address] Dalia Escobar MD) AAA (abdominal aortic aneurysm) COPD (chronic obstructive pulmonary disease) Former tobacco use History of lung cancer HLD (hyperlipidemia) HTN (hypertension) Hypothyroidism Tremor Home Medications albuterol sulfate 90 mcg/actuation aerosol inhaler 2 puff INHALATION Q6H PRN 02/15/21 [History Last Taken 02/15/21] aspirin 81 mg tablet,delayed release 81 mg PO DAILY 02/15/21 [History Last Taken 02/14/21] fluticasone fur. 100 mcg-umeclid 62.5 mcg-vilant 25 mcg inhalat.powder 1 inh INHALATION DAILY 02/15/21 [History Last Taken 02/15/21] levothyroxine 125 mcg PO DAILY 02/15/21 [History Last Taken 02/15/21] metoprolol succinate 25 mg tablet,extended release 24 hr 75 mg PO DAILY tab 02/15/21 [History Last Taken 02/14/21] primidone 50 mg tablet 150 mg PO QHS tab 02/15/21 [History Last Taken 02/14/21] guaifenesin [Mucinex] 1,200 mg PO DAILY 02/16/21 [History Last Taken Unknown] Allergy/AdvReac Type Severity Reaction Status Date / Time No Known Allergies Allergy Unverified 02/15/21 09:47 Family History no significant family his Surgical History S/P AAA repair Social History (Updated 02/15/21 @ 18:[address] Dalia Escobar MD) household members: other details: Patient notes his nephew is currently residing with him. Smoking Status: Former smoker how long ago did patient quit smoking: Quit 1 year ago, prior up to 2 ppd, decreased recently 2-3 cig/day. alcohol intake: never substance use type: does not use ROS Constitutional Constitutional: Denies chills, fatigue or fever(s) Eyes Eyes: Denies blurry vision or change in vision ENT HEENT: Denies dizziness, dysphagia or epistaxis Cardiovascular Cardiovascular: Reports dyspnea; Denies chest pain or dizziness Respiratory/Chest Respiratory/Chest: Reports cough and dyspnea Gastrointestinal Gastrointestinal: Denies abdominal pain, diarrhea, nausea or vomiting Genitourinary Genitourinary: Denies difficulty urinating Musculoskeletal Musculoskeletal: Denies arthralgias, back pain or joint pain Integumentary Integumentary: Denies lesions, rash or skin ulcer Neurologic Neurologic: Denies abnormal gait or abnormal speech Psychiatric Psychiatric: Denies anxiety or depression Endocrine Endocrinology: Denies fatigue Hematologic/Lymphatic Hematologic/Lymphatic: Denies easy bleeding or easy bruising Physical Exam Const alert and no apparent distress General Appearance: cooperative HEENT normocephalic, head/scalp atraumatic and moist oral mucous membranes Eyes PERRL, EOMs intact bilaterally and conjunctivae normal Neck supple General: trachea midline Chest inspection of chest normal Resp Effort and Inspection: tachypneic Auscultation: diminished lung sounds Cardio regular rate and regular rhythm GI normal to inspection, nondistended, normoactive bowel sounds Extremity no clubbing, cyanosis or edema Skin no rashes or lesions noted Neuro moves all extremities and no focal motor deficits Psych cooperative and affect normal Lab / Micro Data Result Diagrams: 02/16/21 06:34 02/16/21 06:34 Labs: Laboratory Results - last 24 hr 02/15/21 10:05: WBC 10.1, RBC 4.58 L, Hgb 14.9, Hct 42.5, MCV 92.8, MCH 32.5 H, MCHC 35.1, RDW Std Deviation 46.5 H, RDW Coeff of Yola 13.8, Plt Count 178, MPV 9.7, Immature Gran % (Auto) 0.500, Neut % (Auto) 80.7 H, Lymph % (Auto) 7.4 L, [place] % (Auto) 11.2 H, Eos % (Auto) 0.0, Baso % (Auto) 0.2, Absolute Neuts (auto) 8.2 H, Absolute Lymphs (auto) 0.75 L, Nucleated RBC % 0 02/15/21 10:05: Sodium 128 L, Potassium 4.4, Chloride 90 L, Carbon Dioxide 26.0, Anion Gap 12, BUN 18, Creatinine 1.01, Estim Creat Clear Calc 70.97, Est GFR (MDRD) Af Amer 95, Est GFR (MDRD) Non-Af 78, BUN/Creatinine Ratio 17.8, Glucose 112 H, Calcium 8.7 02/15/21 10:05: Lactic Acid 1.7 02/15/21 10:05: Procalcitonin 0.12 H Micro: Microbiology 02/15/21 18:00 Urine, Clean Catch Legionella Antigen - Final 02/15/21 18:00 Urine, Clean Catch Streptococcus pneumoniae Antigen (M - Final 02/15/21 15:24 Mucosa - Nasopharyngeal Respiratory Panel (PCR) - Final RSV B 02/15/21 09:55 Nasal Secretion SARS-CoV-2 Antigen (Rapid) - Final Radiology Impression Chest X-Ray 02/15/21 10:35 IMPRESSION: Increased density in the right apex with retraction of the right hilum. There is evidence of the pleural thickening at that site. This may represent post radiation changes. Underlying mass lesion cannot be excluded. Electronically Signed: Cooper Alba MD at 10:50 EST , Service support , Chest CTA 02/15/21 12:27 IMPRESSION: There is no evidence of pulmonary embolism. Mild loss in the right upper lobe with evidence of bronchiectasis and postobstructive pneumonitis. Bronchoscopy is recommended for further evaluation. Electronically Signed: Cooper Alba MD at 13:12 EST , Service support , Charges/Coding Visit Charges Inpatient E&M: 47933 Init Hosp L3
[2021-02-16] MEDS: Acetaminophen 325 MG Tablet 650 MG PO (07:28)
[2021-02-16] MEDS: Aspirin E.C. 81 MG Tablet PO (07:28)
[2021-02-16 07:37] LABS: Absolute Lymphocyte Count 0.68 X10^3/uL (0.83-4.51); Absolute Neutrophil Count 8.1 X10^3/uL (2.0-7.7); Basophil# 0.01 X10^3/uL; Basophil% 0.1 % (0-1); Hematocrit 38.4 % (40-54); Hemoglobin 13.1 g/dL (13.0-16.5); Lymphocyte # 0.68 X10^3/ul (0.83-4.51); Mean Corp Hgb Conc 34.1 g/dL (32-36); Mean Corpuscular Hgb 31.4 pg (27.0-32.0); Mean Corpuscular Volume 92.1 fL (80-94); Mean Platelet Vol. 10.3 fl (6.2-12.0); Monocyte# 0.93 X10^3/uL; Monocyte% 9.5 % (0-10); NRBC Flagged by Analyzer 0 % (0-5); Neutrophil # 8.09 X10^3/uL (2.7-7.7); Neutrophil % 82.8 % (47-70); Platelet Count 176 K/mm3 (150-450); RBC Distribution Width CV 13.8 % (11.6-14.6); RBC Distribution Width SD 46.9 fl (35.1-43.9); Red Blood Count 4.17 M/mm3 (4.6-6.2); White Blood Count 9.8 K/mm3 (4.4-11.0)
[2021-02-16 08:06] LABS: ALB/GLOB Ratio 0.7 RATIO (0.9-2.4); AST(SGOT) 57 U/L (15-37); Alanine Aminotransfer ALT/SGPT 34 U/L (16-61); Alkaline Phosphatase 73 U/L (45-117); Anion Gap 5 (5-15); BUN 20 mg/dL (7-18); BUN/Creat Ratio 27.1 RATIO (10-20); Calcium,Total 8.4 mg/dL (8.5-10.1); Chloride 94 mmol/L (98-107); Creatinine, Serum 0.74 mg/dL (0.70-1.30); EST Glomerular Filtration Rate 112 mL/min (>60); Est Glom Filt Rate - Afr Amer 136 mL/min (>60); Estimated Creatinine Clearance 71.68 ml/min; Globulin 4.4 g/dL (2.2-4.2); Glucose 129 mg/dL (74-106); Potassium 4.4 mmol/L (3.5-5.1); Protein, Total 7.4 g/dL (6.4-8.2); Sodium Level 126 mmol/L (136-145)
[2021-02-16] MEDS: Ensure Clear 120 ML Liquid PO (08:58)
[2021-02-16] MEDS: Famotidine 20 MG Tablet PO ×2 (09:04→20:40)
[2021-02-16] MEDS: Metoprolol(XL)Succ 25 MG Tablet 75 MG PO (09:04)
--- NOTE | 2021-02-16 13:00 | CASEMGMT ---
RN CM CLERICAL TRANSCRIBER CM to room to meet with patient for initial transition planning/care coordination assessment. RN REJI introduced self and role at [facility]. Pt voices understanding and consents to assessment at this time. Pt resting in bed in no distress at this time. Pt is A/O at this time and answers all questions appropriately. Care providers, pharmacy, and demographics verified/updated at this time. PCP: Sarabjit Chavarria NP Specialists:Dr Maddie Kramer--vascular surgeon/[facility], Dr Dalal-oncology, Dr De La Paz--neurology/[facility] Preferred Pharmacy: [facility] Insurance:[employer] [facility] Prescription Benefit: Yes Living Will/HPOA: States does not have LW or HCPOA . Interested in more information and would like to talk w/SW to complete. He states would like his nephewLalito, to be his POA. Pt states he would rather wait until tomorrow to do, as he is tired today and would like to rest. LNOK: Lalito Dale Living Arrangements: Lives w/Lalito dale, in one-story home w/no steps to enter. Independent w/ADL's and IADL's. Transportation: Pt states drives self and states no transportation concerns at this time. Nephew will take him home @ d/c. DME: Has the following DME: nebulizer and [employer]. Has a pulse ox but thinks it may need batteries. Encouraged to replace them. Also has, but does not use: shower chair, BSC, Walker. Does not have home O2. If needs O2 @ d/c, 1st preference of DME co is [employer]. Otherwise, does not have a preference. Pt states no need for further DME at this time. HHC/SNF: No hx of SNF. Has had HHC in the past. Denies need for HHC @ d/c. Pt wishes to return home and states has no concerns with going home at time of discharge. CM to follow for home oxygen needs and any further discharge planning/needs. Pt voices no further concerns/needs at this time. Advised pt to ask for CM if any further questions/concerns/needs arise. Voices understanding. PLAN: Home. Follow for any Home O2 needs @ d/c. [employer] is 1st preference. [place] BRAVON EVELYNE MENDOZA
[2021-02-16 17:52] LABS: Magnesium 2.1 mg/dL (1.6-2.6); Thyroid Stim Hormone (TSH) 0.74 uIU/mL (0.358-3.74)
[2021-02-16 19:25] LABS: Osmolality, Serum 277 mOsm/KG (280-301)
--- NOTE | 2021-02-16 20:11 | PCS.PANDOC ---
PANDEMIC DOCUMENTATION INITIATED: Date: 10/31/2020 Time: 190
[2021-02-16] MEDS: Atorvastatin Calcium 40 MG Tablet PO (20:38)
[2021-02-16] MEDS: Primidone 50 MG Tablet 150 MG PO (20:39)
[2021-02-16 21:55] LABS: Urine Sodium 12 mmol/L (Not Establ.)
[2021-02-16 22:01] LABS: Osmolality, Urine 926 mOsm/KG
[2021-02-17] VITALS (11 sets, daily range): BP systolic 117–167; BP diastolic 81–94; PULSE 76–95; RESP 16–28; TEMP 36.6–37; O2SAT 87–99
[2021-02-17] MEDS: 0.9% Saline Lock 10 ML Syringe IV (05:36)
[2021-02-17] MEDS: Levothyroxine 125 MCG Tablet PO (05:36)
[2021-02-17] MEDS: Albuterol 2.5 MG/3 ML VIAL.NEB. INHALATION (05:41)
[2021-02-17 06:14] LABS: Absolute Neutrophil Count 9.2 X10^3/uL (2.0-7.7); Basophil# 0.01 X10^3/uL; Basophil% 0.1 % (0-1); Hematocrit 37.9 % (40-54); Hemoglobin 13.1 g/dL (13.0-16.5); Lymphocyte % 9.5 % (19-41); Mean Corp Hgb Conc 34.6 g/dL (32-36); Mean Corpuscular Hgb 32.3 pg (27.0-32.0); Mean Corpuscular Volume 93.6 fL (80-94); Mean Platelet Vol. 9.5 fl (6.2-12.0); Monocyte# 1.23 X10^3/uL; Monocyte% 10.6 % (0-10); NRBC Flagged by Analyzer 0 % (0-5); Neutrophil # 9.23 X10^3/uL (2.7-7.7); Neutrophil % 79.3 % (47-70); Platelet Count 167 K/mm3 (150-450); Red Blood Count 4.05 M/mm3 (4.6-6.2); White Blood Count 11.6 K/mm3 (4.4-11.0)
--- NOTE | 2021-02-17 06:30 | PN.HOSP_ITS ---
Subjective Subjective NO issues, overnight, coughing. Objective Data Objective Data Vital Signs: Vital Signs Temp Pulse Resp BP Pulse Ox 97.8 F 77 20 H 117/81 H 99 02/17/21 02:30 02/17/21 05:41 02/17/21 05:41 02/17/21 02:30 02/17/21 02:30 Oxygen Flow Rate (L/min) 3 Oxygen Delivery Method Nasal Cannula Weight: 182 lb 15.739 oz Body Mass Index (BMI) 27.0 Intake & Output: Intake and Output for Last 24 Hours 02/15/21 02/16/21 02/17/21 23:59 23:59 23:59 Intake Total 400 / 600 2060 / 2060 Output Total 600 / 600 800 / 1600 800 / 800 Balance -200 / 0 1260 / 460 -800 / -800 Lab / Micro Data Result Diagrams: 02/17/21 06:00 02/16/21 06:34 Labs: Laboratory Results - last 24 hr 02/16/21 06:34: WBC 9.8, RBC 4.17 L, Hgb 13.1, Hct 38.4 L, MCV 92.1, MCH 31.4, MCHC 34.1, RDW Std Deviation 46.9 H, RDW Coeff of Yola 13.8, Plt Count 176, MPV 10.3, Immature Gran % (Auto) 0.600, Neut % (Auto) 82.8 H, Lymph % (Auto) 7.0 L, [place] % (Auto) 9.5, Eos % (Auto) 0.0, Baso % (Auto) 0.1, Absolute Neuts (auto) 8.1 H, Absolute Lymphs (auto) 0.68 L, Nucleated RBC % 0 02/16/21 06:34: Sodium 126 L, Potassium 4.4, Chloride 94 L, Carbon Dioxide 27.0, Anion Gap 5, BUN 20 H, Creatinine 0.74, Estim Creat Clear Calc 71.68, Est GFR (MDRD) Af Amer 136, Est GFR (MDRD) Non-Af 112, BUN/Creatinine Ratio 27.1 H, Glucose 129 H, Calcium 8.4 L, Total Bilirubin 0.60, AST 57 H, ALT 34, Alkaline Phosphatase 73, Total Protein 7.4, Albumin 3.0 L, Globulin 4.4 H, Albumin/Globulin Ratio 0.7 L 02/16/21 06:34: Magnesium 2.1, TSH 0.74 02/16/21 18:18: Serum Osmolality 277 L 02/16/21 21:15: Urine Osmolality 926 02/16/21 21:15: Ur Random Sodium 12, Urine Creatinine 164.00 02/17/21 06:00: WBC 11.6 H, RBC 4.05 L, Hgb 13.1, Hct 37.9 L, MCV 93.6, MCH 32.3 H, MCHC 34.6, RDW Std Deviation 48.0 H, RDW Coeff of [place]ola 14.0, Plt Count 167, MPV 9.5, Immature Gran % (Auto) 0.500, Neut % (Auto) 79.3 H, Lymph % (Auto) 9.5 L, [place] % (Auto) 10.6 H, Eos % (Auto) 0.0, Baso % (Auto) 0.1, Absolute Neuts (auto) 9.2 H, Absolute Lymphs (auto) 1.10, Nucleated RBC % 0 Micro: Microbiology 02/15/21 15:56 Sputum, Expectorated/Coughed Gram Stain - Final 02/15/21 18:00 Urine, Clean Catch Legionella Antigen - Final 02/15/21 18:00 Urine, Clean Catch Streptococcus pneumoniae Antigen (M - Final 02/15/21 15:24 Mucosa - Nasopharyngeal Respiratory Panel (PCR) - Final RSV B 02/15/21 09:55 Nasal Secretion SARS-CoV-2 Antigen (Rapid) - Final
[2021-02-17 06:40] LABS: ALB/GLOB Ratio 0.7 RATIO (0.9-2.4); AST(SGOT) 56 U/L (15-37); Alanine Aminotransfer ALT/SGPT 45 U/L (16-61); Alkaline Phosphatase 64 U/L (45-117); Anion Gap 6 (5-15); BUN 19 mg/dL (7-18); BUN/Creat Ratio 23.6 RATIO (10-20); Calcium,Total 8.4 mg/dL (8.5-10.1); Chloride 94 mmol/L (98-107); Creatinine, Serum 0.81 mg/dL (0.70-1.30); EST Glomerular Filtration Rate 101 mL/min (>60); Est Glom Filt Rate - Afr Amer 123 mL/min (>60); Globulin 4.4 g/dL (2.2-4.2); Glucose 115 mg/dL (74-106); Potassium 4.7 mmol/L (3.5-5.1); Protein, Total 7.4 g/dL (6.4-8.2); Sodium Level 129 mmol/L (136-145)
[2021-02-17] MEDS: Ipratropium/Albuterol Sulfate 3 ML AMPUL.NEB INHALATION ×2 (07:17→11:20)
[2021-02-17] MEDS: Enoxaparin 40 MG/0.4 ML Syringe SC (10:04)
[2021-02-17] MEDS: Aspirin E.C. 81 MG Tablet PO (10:05)
[2021-02-17] MEDS: Metoprolol(XL)Succ 25 MG Tablet 75 MG PO (10:05)
[2021-02-17] MEDS: guaiFENesin/D-Methorphan TAB.SR.12H 1 TABLET PO (10:05)
[2021-02-17] MEDS: Famotidine 20 MG Tablet PO (10:05)
--- NOTE | 2021-02-17 10:12 | CASEMGMT ---
SW completed a Healthcare Power of Director Instrumentation and a Healthcare Living Will with patient. Copies were made and given to patient along with originals. A copy of each was placed in patient's chart. Kari MASSEY
--- NOTE | 2021-02-17 10:54 | CASEMGMT ---
Addendum entered by Tamiko Cesar 02/17/21 12:02: D.Kevin DOCUMENTATION SUPERVISOR states she would like pt to have a nebulizer at home also and according to CM note, pt does have nebulizer. This RN CM to room and pt states that he has an inhaler at home, not a nebulizer, as previously charted. Nebulizer added to pt's oxygen order to [facility] and Nandini updated, voices understanding. Pt updated on home oxygen and process, voices understanding. Pt voices no further questions/concerns/needs. Annie STUBBS CM Original Note: Pt qualifies for 2L w/ exertion home oxygen and states preference for [employer]. Script obtained and faxed to [facility] at this time. Nandini at [facility] updated on pt, voices understanding. Pt to use [employer] e-tank already provided to [facility] at discharge. Annie STUBBS CM
--- NOTE | 2021-02-17 11:27 | DCINST_ITS ---
Discharge Instructions Diet Discharge Diet: No restrictions Activity Discharge Activity: Return to Normal Activity Dressing / Incision Call your doctor if you observe: Fever of 101 or Higher, Shortness of breath and Chest pain Follow Up Care Please Follow Up With: Sarabjit Chavarria NP, OUT PATIENT THERAPIST-C When: 1-2 weeks Test Results: Test results from this visit will be discussed in further detail at your follow-up appointment, if applicable. Discharge Plan Admission Admit Date/Time: 02/15/21 14:07 Primary Reason for Your Visit: COPD exac, RSV Attending Provider: Dalia Escobar Primary Care Provider: Sarabjit Chavarria NP Consulting Providers: Vikram Mittal Discharge Orders/Prescriptions Prescriptions: New atorvastatin 40 mg Tablet 40 mg PO QHS 30 Days Qty: 30 RF: 0 prednisone 20 mg tablet See Taper mg PO DAILY Qty: 30 RF: 0 ipratropium-albuterol 0.5 mg-3 mg(2.5 mg base)/3 mL solution for nebulization 3 ml inhalation Q6H PRN (Reason: shortness of breath) Qty: 180 RF: 0 Continued metoprolol succinate 25 mg tablet extended release 24 hr 75 mg PO DAILY RF: 0 aspirin [Adult Low Dose Aspirin] 81 mg tablet,delayed release (DR/EC) 81 mg PO DAILY RF: 0 primidone 50 mg tablet 150 mg PO QHS RF: 0 Trelegy Ellipta 100-62.5-25 mcg blister with device 1 inh inhalation DAILY RF: 0 albuterol sulfate 90 mcg/actuation HFA aerosol inhaler 2 puff inhalation Q6H PRN (Reason: SOB) RF: 0 levothyroxine 125 mcg tablet 125 mcg PO DAILY RF: 0 Mucinex 1,200 mg Tablet Extended Release 12hr 1,200 mg PO DAILY RF: 0 Referrals / Follow Up: Sarabjit Chavarria NP, OUT PATIENT THERAPIST-C [Primary Care Provider] - Disposition Disposition (needs filled in before D/C Order can be placed): Home, Self Care
--- NOTE | 2021-02-17 11:36 | PCM.DC.SUM ---
Documented by User: NORMAN Parra 02/17/21 11:42 Providers Date of Admission: 02/15/21 Primary Care Physician: NORMAN Branch Consultations 02/15/21 14:44 Consult: Vehicle Trimmer / Pulmonary Medicine Routine Consulting Provider: Vikram Mittal Reason for Consult: COPD exac, prior Lung CA Hx, CTA postob pneumonitis, rec bronch EMERGENT Consult: No MD Notified: Yes Date Notified: 02/15/21 Time Notified: 14:10 Method of Notification: cortext Reason For Visit: COPD HYPOXIA Diagnosis Discharge Diagnosis (1) COPD exacerbation: Status: Chronic Code(s): J44.1 - Chronic obstructive pulmonary disease with (acute) exacerbation (2) Hypoxia: Status: Acute Code(s): R09.02 - Hypoxemia Medications at Discharge Home Medications albuterol sulfate 90 mcg/actuation aerosol inhaler 2 puff INHALATION Q6H PRN 02/15/21 aspirin 81 mg tablet,delayed release 81 mg PO DAILY 02/15/21 fluticasone fur. 100 mcg-umeclid 62.5 mcg-vilant 25 mcg inhalat.powder 1 inh INHALATION DAILY 02/15/21 levothyroxine 125 mcg PO DAILY 02/15/21 metoprolol succinate 25 mg tablet,extended release 24 hr 75 mg PO DAILY tab 02/15/21 primidone 50 mg tablet 150 mg PO QHS tab 02/15/21 Mucinex 1,200 mg PO DAILY 02/16/21 atorvastatin 40 mg PO QHS 30 Days #30 tab 02/17/21 ipratropium-albuterol 3 ml INHALATION Q6H PRN #180 ml 02/17/21 prednisone See Taper PO DAILY #30 tab 02/17/21 Hospital Course Operations None Procedures EKG Summary of Care Provided Minutes Spent on Discharge: 35 Hospital Course: Patient is a 65-year-old male who is going to be discharged home following hospitalization for COPD exacerbation and RSV. Patient will be discharged home on 2 L nasal cannula oxygen with exertion. Patient will also be discharged home with DuoNeb nebulizer treatments as well as prednisone taper. Patient was initiated on statin therapy while in hospital due to history of hyperlipidemia as well as history of AAA. During hospitalization patient was able to produce sputum culture which was positive for Streptococcus pneumoniae. Patient is recommended to follow-up soon with contracting analyst. Physical Exam Const alert, oriented x3 and no apparent distress General Appearance: cooperative HEENT normocephalic and head/scalp atraumatic Eyes conjunctivae normal and no scleral icterus Neck full ROM and supple General: trachea midline Resp normal respiratory effort Effort and Inspection: able to speak in complete sentences and symmetric chest movement Auscultation: wheezes expiratory wheezes and throughout Cardio regular rate, regular rhythm, S1 normal heart sound, S2 normal heart sound and peripheral pulses 2+ throughout GI normal to inspection, nondistended, normoactive bowel sounds, soft to palpation and non-tender Extremity normal capillary refill and no clubbing, cyanosis or edema General Extremity: no tenderness to palpation of joints or extremities Skin skin turgor normal General Skin Exam: no breakdown Lesions: no lesions Rashes: no rashes Neuro oriented x3, no focal motor deficits and no sensory deficits noted Psych affect normal Appearance: appropriate Weight / BMI Weight Weight: 182 lb 15.739 oz Body Mass Index (BMI) 27.0 ABG / Lab / Microbiology Data Result Diagrams: 02/17/21 06:00 02/17/21 06:00 Laboratory: Laboratory Results - last 24 hr 02/16/21 06:34: Magnesium 2.1, TSH 0.74 02/16/21 18:18: Serum Osmolality 277 L 02/16/21 21:15: Urine Osmolality 926 02/16/21 21:15: Ur Random Sodium 12, Urine Creatinine 164.00 02/17/21 06:00: WBC 11.6 H, RBC 4.05 L, Hgb 13.1, Hct 37.9 L, MCV 93.6, MCH 32.3 H, MCHC 34.6, RDW Std Deviation 48.0 H, RDW Coeff of [place] 14.0, Plt Count 167, MPV 9.5, Immature Gran % (Auto) 0.500, Neut % (Auto) 79.3 H, Lymph % (Auto) 9.5 L, [place] % (Auto) 10.6 H, Eos % (Auto) 0.0, Baso % (Auto) 0.1, Absolute Neuts (auto) 9.2 H, Absolute Lymphs (auto) 1.10, Nucleated RBC % 0 02/17/21 06:00: Sodium 129 L, Potassium 4.7, Chloride 94 L, Carbon Dioxide 29.0, Anion Gap 6, BUN 19 H, Creatinine 0.81, Estim Creat Clear Calc 88.50, Est GFR (MDRD) Af Amer 123, Est GFR (MDRD) Non-Af 101, BUN/Creatinine Ratio 23.6 H, Glucose 115 H, Calcium 8.4 L, Total Bilirubin 0.30, AST 56 H, ALT 45, Alkaline Phosphatase 64, Total Protein 7.4, Albumin 3.0 L, Globulin 4.4 H, Albumin/Globulin Ratio 0.7 L Microbiology: Microbiology 02/15/21 15:56 Sputum, Expectorated/Coughed Gram Stain - Final 02/15/21 15:56 Sputum, Expectorated/Coughed Respiratory Culture - Preliminary Streptococcus pneumoniae 02/15/21 18:00 Urine, Clean Catch Legionella Antigen - Final 02/15/21 18:00 Urine, Clean Catch Streptococcus pneumoniae Antigen (M - Final 02/15/21 15:24 Mucosa - Nasopharyngeal Respiratory Panel (PCR) - Final RSV B 02/15/21 09:55 Nasal Secretion SARS-CoV-2 Antigen (Rapid) - Final D/C Instructions Discharge Diet: No restrictions Call your doctor if you observe: Fever of 101 or Higher, Shortness of breath and Chest pain Please Follow Up With: Sarabjit Chavarria BAILING MACHINE OPERATOR, BAILING MACHINE OPERATOR-C When: 1-2 weeks Meaningful Use Info Meaningful Use Diagnoses (Choose all that apply): None applicable Discharge Plan Admission Admit Date/Time: 02/15/21 14:07 Primary Reason for Your Visit: COPD exac, RSV Attending Provider: Dalia Escobar Primary Care Provider: Sarabjit Chavarria NP Consulting Providers: Vikram Mittal Instructions Additional Instructions / Restrictions: Please follow up with your contracting analyst in 1-2 weeks Discharge Orders/Prescriptions Prescriptions: New atorvastatin 40 mg Tablet 40 mg PO QHS 30 Days Qty: 30 RF: 0 prednisone 20 mg tablet See Taper mg PO DAILY Qty: 30 RF: 0 ipratropium-albuterol 0.5 mg-3 mg(2.5 mg base)/3 mL solution for nebulization 3 ml inhalation Q6H PRN (Reason: shortness of breath) Qty: 180 RF: 0 Continued metoprolol succinate 25 mg tablet extended release 24 hr 75 mg PO DAILY RF: 0 aspirin [Adult Low Dose Aspirin] 81 mg tablet,delayed release (DR/EC) 81 mg PO DAILY RF: 0 primidone 50 mg tablet 150 mg PO QHS RF: 0 Trelegy Ellipta 100-62.5-25 mcg blister with device 1 inh inhalation DAILY RF: 0 albuterol sulfate 90 mcg/actuation HFA aerosol inhaler 2 puff inhalation Q6H PRN (Reason: SOB) RF: 0 levothyroxine 125 mcg tablet 125 mcg PO DAILY RF: 0 Mucinex 1,200 mg Tablet Extended Release 12hr 1,200 mg PO DAILY RF: 0 Referrals / Follow Up: Sarabjit Chavarria NP, BAILING MACHINE OPERATOR-C [Primary Care Provider] - Within 2 Weeks Disposition Disposition (needs filled in before D/C Order can be placed): Home, Self Care Documented by User: Dr. Dalia Escobar MD 02/17/21 12:49 Providers Date of Admission: 02/15/21 Reason For Visit: COPD HYPOXIA Medications at Discharge Home Medications albuterol sulfate 90 mcg/actuation aerosol inhaler 2 puff INHALATION Q6H PRN 02/15/21 aspirin 81 mg tablet,delayed release 81 mg PO DAILY 02/15/21 fluticasone fur. 100 mcg-umeclid 62.5 mcg-vilant 25 mcg inhalat.powder 1 inh INHALATION DAILY 02/15/21 levothyroxine 125 mcg PO DAILY 02/15/21 metoprolol succinate 25 mg tablet,extended release 24 hr 75 mg PO DAILY tab 02/15/21 primidone 50 mg tablet 150 mg PO QHS tab 02/15/21 Mucinex 1,200 mg PO DAILY 02/16/21 atorvastatin 40 mg PO QHS 30 Days #30 tab 02/17/21 ipratropium-albuterol 3 ml INHALATION Q6H PRN #180 ml 02/17/21 prednisone See Taper PO DAILY #30 tab 02/17/21 ABG / Lab / Microbiology Data Result Diagrams: 02/17/21 06:00 02/17/21 06:00 Discharge Plan Admission Admit Date/Time: 02/15/21 14:07 Primary Reason for Your Visit: COPD exac, RSV Attending Provider: Dalia Escobar Primary Care Provider: Sarabjit Chavarria BAILING MACHINE OPERATOR Consulting Providers: Vikram Mittal Instructions Additional Instructions / Restrictions: Please follow up with your contracting analyst in 1-2 weeks Discharge Orders/Prescriptions Prescriptions: New atorvastatin 40 mg Tablet 40 mg PO QHS 30 Days Qty: 30 RF: 0 prednisone 20 mg tablet See Taper mg PO DAILY Qty: 30 RF: 0 ipratropium-albuterol 0.5 mg-3 mg(2.5 mg base)/3 mL solution for nebulization 3 ml inhalation Q6H PRN (Reason: shortness of breath) Qty: 180 RF: 0 Continued metoprolol succinate 25 mg tablet extended release 24 hr 75 mg PO DAILY RF: 0 aspirin [Adult Low Dose Aspirin] 81 mg tablet,delayed release (DR/EC) 81 mg PO DAILY RF: 0 primidone 50 mg tablet 150 mg PO QHS RF: 0 Trelegy Ellipta 100-62.5-25 mcg blister with device 1 inh inhalation DAILY RF: 0 albuterol sulfate 90 mcg/actuation HFA aerosol inhaler 2 puff inhalation Q6H PRN (Reason: SOB) RF: 0 levothyroxine 125 mcg tablet 125 mcg PO DAILY RF: 0 Mucinex 1,200 mg Tablet Extended Release 12hr 1,200 mg PO DAILY RF: 0 Referrals / Follow Up: Sarabjit Chavarria NP, BAILING MACHINE OPERATOR-C [Primary Care Provider] - Within 2 Weeks Disposition Disposition (needs filled in before D/C Order can be placed): Home, Self Care
[2021-02-17] MEDS: guaiFENesin 10 ML UDC (200MG/10ML) 20 ML PO (12:19)
--- NOTE | 2021-02-17 13:13 | PN.CC_ITS ---
Assessment & Plan Assessment/Plan (1) COPD exacerbation: PLAN: RECOMMENDATIONS: 1. Wean supplemental oxygen to maintain saturations at or above 90%. 2. Continue scheduled bronchodilators and IV steroids. 3. Start ceftriaxone. 4. Encourage incentive spirometer use and mobilize patient as tolerated. 5. Perform walking oximetry prior to consideration for discharge home. 6. Close outpatient follow-up with the patient's primary elementary tutor is warranted. IMPRESSIONS: 1. COPD exacerbation with hypoxemia secondary to RSV and pneumococcal pneumonia The patient presented with worsening shortness of breath of approximately 2 weeks duration and subsequently tested positive for RSV B. Subsequent sputum culture was positive for Streptococcus pneumoniae. He does appear to be experiencing an acute COPD exacerbation. The patient has on a triple therapy inhaler regimen at his baseline. For now, I agree with continuing scheduled br onchodilators and IV steroids. He will also be started on ceftriaxone. The exact severity of his underlying obstructive lung disease is not known. I do anticipate a rather prolonged recovery period. The patient does deny using supplemental oxygen at his baseline. Continue to wean supplemental O2 to maintain oxygen saturations at or above 90%. Encourage incentive spirometer use and mobilize patient as tolerated. 2. 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 However, I would recommend that the patient continue to follow-up with his elementary tutor on an outpatient basis. 3. History of tobacco dependency in remission/hypertension/hyperlipidemia/hypothyroidism Complicates care, management, recovery and prognosis. Continue home medications as indicated. This note was generated with [employer] dictation software. It may contain incorrect words, spelling, and punctuation that were not noted in checking the note before signing. Subjective Subjective The patient was seen and examined at the bedside this morning. Events from the last 24 hours have been reviewed. The patient is currently afebrile, hemodynamically stable and maintaining appropriate oxygen saturations on 2 L/min via nasal cannula. The patient remains on scheduled bronchodilators and IV steroids. Objective Data Objective Data The patient's most recent lab work, culture data and imaging studies have all been personally reviewed. Respiratory viral panel was positive for RSV. Sputum culture is currently growing Streptococcus pneumoniae. Vital Signs: Vital Signs Temp Pulse Resp BP Pulse Ox 98.1 F 94 24 H 150/92 H 95 02/17/21 12:08 02/17/21 12:08 02/17/21 12:08 02/17/21 12:08 02/17/21 12:08 Oxygen Flow Rate (L/min) [ 2 AMBULATING with Oxygen #1] Oxygen Flow Rate (L/min) [ 0 AMBULATING on Room Air] Oxygen Flow Rate (L/min) [At 0 REST on Room Air] Oxygen Flow Rate (L/min) 2 Oxygen Delivery Method Nasal Cannula Weight: 83 kg Body Mass Index (BMI) 27.0 Intake & Output: Intake and Output for Last 24 Hours 02/15/21 02/16/21 02/17/21 23:59 23:59 23:59 Intake Total 400 / 600 2060 / 2060 600 / 600 Output Total 600 / 600 800 / 1600 800 / 800 Balance -200 / 0 1260 / 460 -200 / -200 Lab / Micro Data Attestation: I reviewed the patient's lab results. Result Diagrams: 02/17/21 06:00 02/17/21 06:00 Labs: Laboratory Results - last 24 hr 02/16/21 06:34: Magnesium 2.1, TSH 0.74 02/16/21 18:18: Serum Osmolality 277 L 02/16/21 21:15: Urine Osmolality 926 02/16/21 21:15: Ur Random Sodium 12, Urine Creatinine 164.00 02/17/21 06:00: WBC 11.6 H, RBC 4.05 L, Hgb 13.1, Hct 37.9 L, MCV 93.6, MCH 32.3 H, MCHC 34.6, RDW Std Deviation 48.0 H, RDW Coeff of [place] 14.0, Plt Count 167, MPV 9.5, Immature Gran % (Auto) 0.500, Neut % (Auto) 79.3 H, Lymph % (Auto) 9.5 L, [place] % (Auto) 10.6 H, Eos % (Auto) 0.0, Baso % (Auto) 0.1, Absolute Neuts (auto) 9.2 H, Absolute Lymphs (auto) 1.10, Nucleated RBC % 0 02/17/21 06:00: Sodium 129 L, Potassium 4.7, Chloride 94 L, Carbon Dioxide 29.0, Anion Gap 6, BUN 19 H, Creatinine 0.81, Estim Creat Clear Calc 88.50, Est GFR (MDRD) Af Amer 123, Est GFR (MDRD) Non-Af 101, BUN/Creatinine Ratio 23.6 H, Glucose 115 H, Calcium 8.4 L, Total Bilirubin 0.30, AST 56 H, ALT 45, Alkaline Phosphatase 64, Total Protein 7.4, Albumin 3.0 L, Globulin 4.4 H, Albumin/Globulin Ratio 0.7 L Micro: Microbiology 02/15/21 15:56 Sputum, Expectorated/Coughed Gram Stain - Final 02/15/21 15:56 Sputum, Expectorated/Coughed Respiratory Culture - Preliminary Streptococcus pneumoniae 02/15/21 18:00 Urine, Clean Catch Legionella Antigen - Final 02/15/21 18:00 Urine, Clean Catch Streptococcus pneumoniae Antigen (M - Final 02/15/21 15:24 Mucosa - Nasopharyngeal Respiratory Panel (PCR) - Final RSV B 02/15/21 09:55 Nasal Secretion SARS-CoV-2 Antigen (Rapid) - Final Physical Exam Const alert and no apparent distress General Appearance: cooperative HEENT normocephalic, head/scalp atraumatic and moist oral mucous membranes Eyes PERRL, EOMs intact bilaterally and conjunctivae normal Neck supple General: trachea midline Chest inspection of chest normal Resp Effort and Inspection: tachypneic Auscultation: diminished lung sounds Cardio regular rate and regular rhythm GI normal to inspection, nondistended, normoactive bowel sounds Extremity no clubbing, cyanosis or edema Skin no rashes or lesions noted Neuro moves all extremities and no focal motor deficits Psych cooperative and affect normal Charges/Coding Visit Charges Inpatient E&M: 16854 Subs Hosp L2
== END 2021-02-17 13:18 | disposition home or self-care (01) | DRG 190 ==
LOC: ED 12:30 → PCU 14:46
PROVIDERS: Admitting Provider Family Medicine; Emergency Provider Emergency Medicine; PCP Nurse Practitioner Family; Visit Provider Family Medicine
DX: J44.1 Chronic obstructive pulmonary disease with (acute) exacerbation (principal); J13 Pneumonia due to Streptococcus pneumoniae; E87.1 Hypo-osmolality and hyponatremia; J20.5 Acute bronchitis due to respiratory syncytial virus; J44.0 Chronic obstructive pulmonary disease with (acute) lower respiratory infection; R09.02 Hypoxemia; R06.89 Other abnormalities of breathing; I10 Essential (primary) hypertension; E78.5 Hyperlipidemia, unspecified; E03.9 Hypothyroidism, unspecified; Z85.118 Personal history of other malignant neoplasm of bronchus and lung; Z79.51 Long term (current) use of inhaled steroids; Z87.891 Personal history of nicotine dependence; Z79.899 Other long term (current) drug therapy; Z79.82 Long term (current) use of aspirin; Z86.79 Personal history of other diseases of the circulatory system; Z23 Encounter for immunization
CPT/HCPCS: 36415; 71045; 71275; 80048; 80053; 82570; 83605; 83735; 83930; 83935; 84145; 84300; 84443; 85025; 87040; 87070; 87077; 87186; 87205; 87426; 87449; 87633; 93005; 94640; 94667; 94668; 97802; 99285; G0008; J7030; Q9967; 90686; A4216

== ENCOUNTER → 2021-02-28 13:47 | Outpatient (CLI) | payer MEDICARE, SELFPAY ==
[2021-02-28 15:15] LABS: Absolute Lymphocyte Count 1.01 X10^3/uL (0.83-4.51); Absolute Neutrophil Count 17.2 X10^3/uL (2.0-7.7); Basophil# 0.05 X10^3/uL; Basophil% 0.3 % (0-1); Eosinophil# 0.06 X10^3/uL; Eosinophils% 0.3 % (0-5); Hematocrit 38.3 % (40-54); Hemoglobin 12.8 g/dL (13.0-16.5); Lymphocyte # 1.01 X10^3/ul (0.83-4.51); Lymphocyte % 5.1 % (19-41); Mean Corp Hgb Conc 33.4 g/dL (32-36); Mean Corpuscular Hgb 32.2 pg (27.0-32.0); Mean Corpuscular Volume 96.5 fL (80-94); Mean Platelet Vol. 9.7 fl (6.2-12.0); Monocyte# 1.19 X10^3/uL; NRBC Flagged by Analyzer 0 % (0-5); Neutrophil # 17.21 X10^3/uL (2.7-7.7); Neutrophil % 87.1 % (47-70); Platelet Count 236 K/mm3 (150-450); RBC Distribution Width CV 13.6 % (11.6-14.6); RBC Distribution Width SD 48.4 fl (35.1-43.9); Red Blood Count 3.97 M/mm3 (4.6-6.2); White Blood Count 19.8 K/mm3 (4.4-11.0)
[2021-02-28 15:44] LABS: ALB/GLOB Ratio 0.8 RATIO (0.9-2.4); AST(SGOT) 17 U/L (15-37); Alanine Aminotransfer ALT/SGPT 49 U/L (16-61); Albumin, Serum 3.2 g/dL (3.2-5.0); Alkaline Phosphatase 57 U/L (45-117); Anion Gap 6 (5-15); BUN 16 mg/dL (7-18); BUN/Creat Ratio 15.2 RATIO (10-20); Calcium,Total 8.4 mg/dL (8.5-10.1); Chloride 96 mmol/L (98-107); Creatinine, Serum 1.05 mg/dL (0.70-1.30); EST Glomerular Filtration Rate 75 mL/min (>60); Est Glom Filt Rate - Afr Amer 90 mL/min (>60); Globulin 3.8 g/dL (2.2-4.2); Glucose 107 mg/dL (74-106); Potassium 4.1 mmol/L (3.5-5.1); Sodium Level 133 mmol/L (136-145)
== END ==
PROVIDERS: PCP Nurse Practitioner Family; Visit Provider Nurse Practitioner Family
DX: J44.9 Chronic obstructive pulmonary disease, unspecified (principal); R09.02 Hypoxemia
CPT/HCPCS: 36415; 80053; 85025

== ENCOUNTER → 2021-12-04 | Outpatient (CLI) | payer MEDICARE, SELFPAY ==
[2021-12-04 11:35] LABS: AST(SGOT) 18 U/L (15-37); Alanine Aminotransfer ALT/SGPT 26 U/L (16-61); Albumin, Serum 3.5 g/dL (3.2-5.0); Alkaline Phosphatase 89 U/L (45-117); Protein, Total 7.5 g/dL (6.4-8.2)
[2021-12-07 10:01] LABS: Anion Gap 12 (5-15); BUN 16 mg/dL (7-18); BUN/Creat Ratio 14.3 RATIO (10-20); Calcium,Total 8.9 mg/dL (8.5-10.1); Chloride 97 mmol/L (98-107); Creatinine, Serum 1.12 mg/dL (0.70-1.30); EST Glomerular Filtration Rate 69 mL/min (>60); Est Glom Filt Rate - Afr Amer 84 mL/min (>60); Glucose 111 mg/dL (74-106); Potassium 4.7 mmol/L (3.5-5.1); Sodium Level 134 mmol/L (136-145)
== END | disposition home or self-care (01) ==
PROVIDERS: PCP Nurse Practitioner Family; Visit Provider Internal Medicine Hematology & Oncology
DX: C33 Malignant neoplasm of trachea (principal); C34.80 Malignant neoplasm of overlapping sites of unspecified bronchus and lung; J44.9 Chronic obstructive pulmonary disease, unspecified; E03.9 Hypothyroidism, unspecified; R91.8 Other nonspecific abnormal finding of lung field
CPT/HCPCS: 80048; 80076

== ENCOUNTER → 2022-02-07 | Outpatient (CLI) | payer MEDICARE, SELFPAY ==
[2022-02-07 12:33] LABS: Absolute Lymphocyte Count 1.12 X10^3/uL (0.83-4.51); Absolute Neutrophil Count 6.1 X10^3/uL (2.0-7.7); Basophil# 0.03 X10^3/uL; Basophil% 0.4 % (0-1); Eosinophil# 0.12 X10^3/uL; Eosinophils% 1.5 % (0-5); Hematocrit 38.9 % (40-54); Hemoglobin 13.2 g/dL (13.0-16.5); Lymphocyte # 1.12 X10^3/ul (0.83-4.51); Lymphocyte % 13.7 % (19-41); Mean Corp Hgb Conc 33.9 g/dL (32-36); Mean Corpuscular Hgb 32.5 pg (27.0-32.0); Mean Corpuscular Volume 95.8 fL (80-94); Mean Platelet Vol. 9.7 fl (6.2-12.0); Monocyte# 0.81 X10^3/uL; Monocyte% 9.9 % (0-10); NRBC Flagged by Analyzer 0 % (0-5); Neutrophil # 6.05 X10^3/uL (2.7-7.7); Platelet Count 186 K/mm3 (150-450); RBC Distribution Width CV 14.1 % (11.6-14.6); RBC Distribution Width SD 49.2 fl (35.1-43.9); Red Blood Count 4.06 M/mm3 (4.6-6.2); White Blood Count 8.2 K/mm3 (4.4-11.0)
[2022-02-07 13:02] LABS: ALB/GLOB Ratio 0.9 RATIO (0.9-2.4); AST(SGOT) 19 U/L (15-37); Alanine Aminotransfer ALT/SGPT 30 U/L (16-61); Albumin, Serum 3.5 g/dL (3.2-5.0); Alkaline Phosphatase 77 U/L (45-117); Anion Gap 2 (5-15); BUN 11 mg/dL (7-18); BUN/Creat Ratio 11.4 RATIO (10-20); Calcium,Total 8.8 mg/dL (8.5-10.1); Chloride 98 mmol/L (98-107); Cholesterol 125 mg/dL (200); Creatinine, Serum 0.96 mg/dL (0.70-1.30); EST Glomerular Filtration Rate 82 mL/min (>60); Est Glom Filt Rate - Afr Amer 99 mL/min (>60); Globulin 3.9 g/dL (2.2-4.2); Glucose 95 mg/dL (74-106); High Density Lipoprotein 51 mg/dL; PSA,Total - Annual Screen 0.86 ng/mL (0.00-4.00); Potassium 4.5 mmol/L (3.5-5.1); Protein, Total 7.4 g/dL (6.4-8.2); Sodium Level 134 mmol/L (136-145); Triglycerides 72 mg/dL; Very Low Density Lipoprotein 14 mg/dL (5-40)
== END | disposition home or self-care (01) ==
LOC: BIMLAB 11:34
PROVIDERS: PCP Nurse Practitioner Family; Referring Provider Nurse Practitioner Family; Visit Provider Nurse Practitioner Family
DX: R09.02 Hypoxemia (principal); J44.9 Chronic obstructive pulmonary disease, unspecified; E78.5 Hyperlipidemia, unspecified; E03.9 Hypothyroidism, unspecified; I10 Essential (primary) hypertension; Z12.5 Encounter for screening for malignant neoplasm of prostate
CPT/HCPCS: 36415; 80053; 80061; 84153; 85025; G0103

== ENCOUNTER 2022-02-13 09:58 | Emergency (ER) | payer MEDICARE, SELFPAY ==
[2022-02-13 09:59] VITALS: BP 142/74; PULSE 76; RESP 20; TEMP 36.6; O2SAT 99; BMI 30.4
[2022-02-13 10:01] VITALS: BP 131/86; PULSE 92; RESP 16; TEMP 36.8; O2SAT 100
--- NOTE | 2022-02-13 11:23 | RAD_ITS ---
STUDY: X-RAY - RIGHT KNEE REASON FOR EXAM: Male, 66 years old. Pain and soft tissue swelling. TECHNIQUE: 3 view(s) of the knee. COMPARISON: None. FINDINGS: Normal visualized distal femur. Normal visualized proximal tibia and fibula. Normal proximal tibiofibular articulation. Normal medial femorotibial compartment. Normal lateral femorotibial compartment. Normal patellofemoral articulation. Moderate degree of joint effusion. RAD/Knee 3 Views IMPRESSION: Moderate degree of joint effusion. Electronically Signed: Cooper Alba MD at 12:41 EST ,
[2022-02-13] MEDS: oxyCODONE 5 MG Tablet PO (11:49)
--- NOTE | 2022-02-13 12:03 | EDS_ITS ---
HPI History of Present Illness Chief Complaint: Lower Extremity Injury Informant: patient Narrative Narrative: Patient states he has been having knee pain for several months. Mostly the right 1 now and then swells up and hurts. He cannot think of anything specif ically that causes this. He states when the right one swells up he favors the left and sometimes it will swell up. Today the left one is really not swollen. He has never had any fevers or chills. He denies recent infection. He denies any specific acute trauma. He has never had gout or pseudogout that he knows of. He is not on any anticoagulation other than aspirin. No other joints are swollen or painful. He does not take anything for pain for this. [facility] Medical History AAA (abdominal aortic aneurysm) COPD (chronic obstructive pulmonary disease) History of lung cancer HLD (hyperlipidemia) HTN (hypertension) Hypothyroidism Lung cancer Tremor Home Medications aspirin 81 mg tablet,delayed release (Adult Low Dose Aspirin) 81 mg PO DAILY HEALTH 02/15/21 [History Last Taken 02/14/21] metoprolol succinate 25 mg tablet,extended release 24 hr 75 mg PO DAILY HEART 02/15/21 [History Last Taken 02/14/21] guaifenesin 1,200 mg tablet, extended release 12 hr (Mucinex) 1,200 mg PO DAILY cough, congestion 02/16/21 [History Last Taken Unknown] omeprazole 40 mg capsule,delayed release 40 mg PO DAILY #90 caps 11/16/21 [Rx Last Taken Unknown] primidone 50 mg tablet 150 mg PO QHS SEIZURE 60 days #180 tabs 01/10/22 [Rx Last Taken Unknown] ipratropium 0.5 mg-albuterol 3 mg (2.5 mg base)/3 mL nebulization soln 3 ml inhalation Q6H PRN shortness of breath #180 mL 01/30/22 [Rx Last Taken Unknown] albuterol sulfate 90 mcg/actuation aerosol inhaler 2 puff inhalation Q6H PRN SOB #8.5 grams 02/07/22 [Rx Last Taken Unknown] atorvastatin 40 mg tablet 40 mg PO QHS 30 days #90 tabs 02/07/22 [Rx Last Taken Unknown] fluticasone fur. 100 mcg-umeclid 62.5 mcg-vilant 25 mcg inhalat.powder (Trelegy Ellipta) 1 inh inhalation DAILY COPD #180 ea 02/07/22 [Rx Last Taken Unknown] levothyroxine 125 mcg tablet 125 mcg PO DAILY thyroid #90 tabs 02/07/22 [Rx Last Taken Unknown] hydrocodone-acetaminophen 5-325mg 5mg-325mg 1 tab PO Q6H PRN pain 3 days #10 tabs 02/13/22 [Rx Last Taken Unknown] Allergy/AdvReac Type Severity Reaction Status Date / Time No Known Allergies Allergy Verified 02/13/22 10:01 Surgical History S/P AAA repair Social History household members: other details: Patient notes his nephew is currently residing with him. Smoking Status: Current every day smoker tobacco type: cigarettes how long ago did patient quit smoking: Quit 1 year ago, prior up to 2 ppd, decreased recently 2-3 cig/day. alcohol intake: never substance use type: does not use ROS ROS ED Constitutional Constitutional ED: Denies chills, fever(s), subjective or weight loss ENT ENT ED: Denies rhinorrhea or sore throat Cardiovascular Cardiovascular: Denies palpitations Respiratory/Chest Respiratory/Chest: Denies cough or dyspnea Gastrointestinal Gastrointestinal: Denies diarrhea, nausea or vomiting Genitourinary Genitourinary ED: Denies dysuria or hematuria Musculoskeletal Musculoskeletal: Reports arthralgias; Denies back pain, myalgias or neck pain Integumentary Denies abscess, Abrasions or rash Neurologic Neurologic: Denies paresthesias or weakness Endocrine Endocrinology: Denies polydipsia or polyuria Hematologic/Lymphatic Hematologic/Lymphatic: Denies easy bleeding, easy bruising or lymphadenopathy Allergic/Immunologic Allergic/Immunologic ED: Denies urticaria EXAM Physical Exam Const Vital Signs: 02/13/22 09:59 02/13/22 10:01 Temperature 97.9 F 98.3 F Temperature Source Temporal Temporal Pulse Rate 76 92 Respiratory Rate 20 H 16 Blood Pressure 142/74 H 131/86 H Blood Pressure Mean 96 101 Pulse Ox 99 100 Oxygen Delivery Method Room Air Room Air Positive well nourished and well developed General Appearance ED: well developed HEENT Reports moist mucous membranes atraumatic Resp normal respiratory effort and clear to auscultation bilaterally Cardio regular rate and regular rhythm GI non-tender and non-distended Back/Spine no CVA tenderness Thoracic Spine / Upper Back: Negative for thoracic spinal tenderness Lumbar Spine / Lower Back: Negative for lumbar spinal tenderness Extremity Extremity Narrative: Left knee looks normal. There is really no tenderness. He has good range of motion. No redness or warmth. Extensor mechanism is intact. The right 1 does have an effusion. But is not red or warm. I can move it pretty well. It has a little bit of medial joint line tenderness but not markedly so. Extensor is intact. Neither leg has swelling of the calf or thigh. There is no tenderness in these areas. No cord. There is no peripheral edema. There is no distended veins. Pulses are normal. No swelling or tenderness at the first MTP and no history of it per patient. Neuro Sensorium / Orientation: alert Psych mental status grossly normal Skin no wounds MDM MDM MDM Narrative Medical decision making narrative: X-ray shows some mild arthritis and moderate effusion. Patient's recheck. He is feeling better. He now states that although he only gets swelling in his knee, he has been getting hand and foot and other joint aches and pains for about a year. They have done blood work. They have evaluated in his primary but they cannot find out why this happens. He states they checked his potassium and its always been normal. They just did blood work last week. I will refer him to orthopedics because the right primary joint is giving him problem is his right knee. This has been recurrent going on for months. I will give him an IM shot of Kenalog to see if that will calm this down. I will give him a few days of pain and follow-up as appropriate as this is becoming a longer problem. Radiography Diagnostic Testing: Clinical Impression(s) from Imaging Studies Knee X-Ray 02/13/22 11:23 IMPRESSION: Moderate degree of joint effusion. Electronically Signed: Cooper Alba MD at 12:41 EST , Discharge Plan Triage Chief Complaint: Lower Extremity Injury ED Provider: Matthew Rodney Dx/Rx/DC Orders Clinical Impression: Effusion of knee joint right, Acute pain of right knee Instructions: ED Arthralgia Prescriptions: New hydrocodone-acetaminophen 5-325 mg tablet 1 tab PO Q6H PRN (Reason: pain) 3 Days Qty: 10 0RF No Action metoprolol succinate 25 mg tablet extended release 24 hr 75 mg PO DAILY aspirin [Adult Low Dose Aspirin] 81 mg tablet,delayed release (DR/EC) 81 mg PO DAILY albuterol sulfate 90 mcg/actuation HFA aerosol inhaler 2 puff inhalation Q6H PRN (Reason: SOB) Qty: 8.5 3RF atorvastatin 40 mg tablet 40 mg PO QHS 30 Days Qty: 90 3RF Trelegy Ellipta 100-62.5-25 mcg blister with device 1 inh inhalation DAILY Qty: 180 3RF levothyroxine 125 mcg tablet 125 mcg PO DAILY Qty: 90 3RF Mucinex 1,200 mg Tablet Extended Release 12hr 1,200 mg PO DAILY omeprazole 40 mg capsule,delayed release(DR/EC) 40 mg PO DAILY Qty: 90 0RF primidone 50 mg tablet 150 mg PO QHS 60 Days Qty: 180 0RF ipratropium-albuterol 0.5 mg-3 mg(2.5 mg base)/3 mL solution for nebulization 3 ml inhalation Q6H PRN (Reason: shortness of breath) Qty: 180 1RF Primary Care Provider: Sarabjit Chavarria NP Referrals: Rashard Gil DO [Med Staff - Active Staff] - As soon as possible Sarabjit Chavarria NP, [employer] [Primary Care Provider] - 1-2 Weeks Disposition Disposition: Home, Self Care
[2022-02-13 13:56] VITALS: BP 139/79; PULSE 72; RESP 16; TEMP 36.7; O2SAT 97
[2022-02-13] MEDS: Triamcinolone Acetonide 40 MG/ML Vial IM (14:22)
[2022-02-13 14:25] VITALS: BP 141/70; PULSE 79; RESP 16; O2SAT 98
== END 2022-02-13 14:53 | disposition home or self-care (01) ==
PROVIDERS: Emergency Provider Emergency Medicine; PCP Nurse Practitioner Family; Visit Provider Emergency Medicine
DX: M25.461 Effusion, right knee (principal); J44.9 Chronic obstructive pulmonary disease, unspecified; M25.561 Pain in right knee; E78.5 Hyperlipidemia, unspecified; I10 Essential (primary) hypertension; M19.90 Unspecified osteoarthritis, unspecified site; F17.210 Nicotine dependence, cigarettes, uncomplicated
CPT/HCPCS: 73562; 96372; 99283

== ENCOUNTER → 2022-05-02 | Outpatient (CLI) | payer MEDICARE, SELFPAY ==
[2022-05-02 18:16] LABS: Body Fluid QC Type(s) BF1Q; CRYSTALS, BODY FLUID NO CRYSTALS SEEN; Source- Body Fluid SYNOVIAL
[2022-05-04 09:34] LABS: Pathologist Review Reviewed
== END | disposition home or self-care (01) ==
PROVIDERS: PCP Nurse Practitioner Family; Visit Provider Physician Assistant
DX: M25.461 Effusion, right knee (principal)
CPT/HCPCS: 89060

== ENCOUNTER → 2022-05-23 | Outpatient (CLI) | payer MEDICARE, SELFPAY ==
--- NOTE | 2022-05-23 10:58 | MRI_ITS ---
STUDY: MRI RIGHT KNEE REASON FOR EXAM: Male, 66 years old. Medial right knee pain. TECHNIQUE: Standardized fat and water weighted pulse sequences were obtained in all 3 orthogonal planes. COMPARISON: X-rays of the right knee dated January 2022. FINDINGS: Normal medial meniscus. Mild thinning of the articular cartilage of the medial femorotibial compartment (coronal series 6 images 14-22). Normal medial femoral condyle and tibial plateau. Mild MCL sprain (coronal series 6 image 18). Normal distal semimembranosus, gracilis and semitendinosus tendons. Oblique undersurface tear of the posterior horn of the lateral meniscus (sagittal series 4 image 8). Mild thinning of the articular cartilage of the lateral femorotibial compartment (coronal series 6 images 13-20). Normal lateral femoral condyle and tibial plateau. Normal proximal tibiofibular articulation. Normal lateral collateral (fibular) ligament. Normal popliteus tendon. Normal biceps femoris tendon. Normal anterior cruciate ligament (ACL). Normal posterior cruciate ligament (PCL). Slight lateral tilt and subluxation of the patella with surface irregularity of the articular cartilage of the patellar facets (axial series 2 images 8-12). Normal hyaline cartilage of the patellofemoral compartment. Normal medial and lateral patellar retinaculum. Normal quadriceps tendon. Normal patellar tendon. Normal Hoffa''s fat pad. Deep infrapatellar bursitis (sagittal series 4 image 9). Small joint effusion (axial series 6 2 image 11). Prepatellar subcutaneous soft tissue edema (sagittal series 4 image 11). The otherwise visualized osseous structures are unremarkable. MRI/Lower Ext Joint Only (Routine) IMPRESSION: Mild thinning of the articular cartilage of the medial and lateral femorotibial compartments. Mild MCL sprain. Oblique undersurface tear of the posterior horn of the lateral meniscus. Slight lateral tilt and subluxation of the patella with surface irregularity of the articular cartilage of the patellar facets. Deep infrapatellar bursitis. Prepatellar subcutaneous soft tissue edema. Small joint effusion. Electronically Signed: Rodrigo Estes, at 15:58 EST ,
== END | disposition home or self-care (01) ==
PROVIDERS: PCP Nurse Practitioner Family; Referring Provider Physician Assistant; Visit Provider Physician Assistant
DX: M23.91 Unspecified internal derangement of right knee (principal)
CPT/HCPCS: 73721

== ENCOUNTER 2022-06-21 08:00 | Outpatient (RCR) | payer MEDICARE, SELFPAY ==
--- NOTE | 2022-06-19 08:53 | HP.PTEVAL_ITS ---
Patient's Visit Information JACK GARCÍA is a 67 year old M referred to Physical Therapy by DM Moise with a diagnosis of OA R knee and MCL sprain. Date of Evaluation: 06/19/22 Physical Therapist: GLORIA Westbrook - Visit Plan Frequency: 2x /Week Duration: 6 Weeks Plan: 1-4 visits for I HEP/gym routine for R knee ROM (decrease swelling (bike/nu-step etc)), R hip and knee strength, gait training, functional transfers. Pt will be having a biopsy of his lung on the cause they think his lung CA might be back. HEP: SLR, Bridge, LAQ hold X 2 seconds - Subjective Pt reported that his R knee blowed up. It just started to hurt one morning. One morning his R knee just gave out and down he went. They took 9 vials of fluid out the first time and second time 7 vials of fluid. He got a cortizone shot that helped for a week or two. Now he is back to painful again. He has been standing on it and it is acting up again. He did an MRI and thinks that he needs some PT. He said that there is hardly any arthritis in it. He reports that getting up and walking around increases pain. IF he sits and gets up he needs both arms to get up. IF he is up walking around awhile it will get better. He thinks that overall it is getting better. Stairs: he tries to go up recip with a hand rail and sometimes it works and other times it does not work. They think he might have lung CA again. He has a biopsy on the - Pain R knee pain Pain Intensity (Out of 10): 3 Pain Intensity Range: 6 - Objective Gait: Walks with decrease stance time on the R LE. LE MMT: R hip flex 16.1 and L hip flex 14.2. R knee ext 20.4 and L 19.8. R knee flex 13.2 and L 14.7. R knee AROM: 0-125 degrees. L knee AORM: 0-130 degrees. Patellar DTR B 2+/3. Sit to stand: able to stand on first attempt but uses his arms to help get up out of the chair. Stairs: up and down recip with 2 hand rails with SOB and signs of weakness in the R knee. Girth measurements. R Tib Tub 36.8, Infrapatella 38.3, Suprapatella 42.4. L 36.2, 38.5, 41.5 - Balance/Special Test Scores Lower Extremity Functional Score: 33 - Goals Goal 1:: I HEP and gym routine Goal Time Frame: 4-6 Weeks Goal 2:: Increase R knee strength (at time of the eval R hip flex 16.1 and L hip flex 14.2. R knee ext 20.4 and L 19.8. R knee flex 13.2 and L 14.7). Goal Time Frame: 4-6 Weeks Goal 3:: Be able to get out of the chair without use of UE Goal Time Frame: 4-6 Weeks Goal 4:: Be able to go up and down the stairs recip with ease with 1 hand rail with eccentric control Goal Time Frame: 4-6 Weeks - Rehabilitation Potential Rehabilitation Potential: Good - Anticipated Interventions Patient/Client Instruction: Educate patient on: Condition, Plan of Care For the Purpose of:: To decrease pain, To decrease swelling/inflammation, To increase ROM, To improve nutrient delivery to tissue, To improve muscle performance and motor function, To improve ability to perform ADL's, To increase tolerance to activity/condition/position, To decrease level of supervision to perform tasks, To improve ability of physical actions for home/community/work/leisure, To improve gait and locomotor functions, To improve health of tissue, To decrease soft tissue restriction, To increase flexibility/ROM Therapeutic Exercise to Include: Strength training, Endurance training, Flexibil ty training, Gait and locomotor training, Neuromotor development, Passive ROM, Active ROM For the Purpose of:: To decrease pain, To decrease swelling/inflammation, To increase ROM, To improve muscle performance and motor function, To increase tolerance to activity/condition/position, To improve performance and independence with ADL's, To improve ability of physical actions for home/community/work/leisure, To improve gait and locomotor functions, To improve health of tissue, To decrease soft tissue restriction, To increase flexibility/ROM, To improve endurance Functional Training to Include: Gait training For the Purpose of:: To improve gait and locomotor functions Thank you for the opportunity to evaluate your patient. For Medicare and Medicare HMO plans, please review the plan of care and approve it. It will need to be FAXED BACK to us at [phone] for Medicare purposes. For Medicare only, by signing this I certify the plan of care. Please let me know if there are questions or concerns regarding this plan of care. Physician Signature: Date:
--- NOTE | 2022-10-31 16:19 | HP.PT.NRP ---
Patient Information Patient Information: JACK GARCÍA was seen in my office for initial evaluation on 06/19/22. The following Plan of Care was established for this patient: POC Established Initial Frequency: 2x /Week Initial Duration: 6 Weeks Anticipated Interventions Patient/Client Instruction: Educate patient on: Condition and Plan of Care For the Purpose of:: To decrease pain, To decrease swelling/inflammation, To increase ROM, To improve nutrient delivery to tissue, To improve muscle performance and motor function, To improve ability to perform ADL's, To increase tolerance to activity/condition/position, To decrease level of supervision to perform tasks, To improve ability of physical actions for home/community/work/leisure, To improve gait and locomotor functions, To improve health of tissue, To decrease soft tissue restriction and To increase flexibility/ROM Therapeutic Exercise to Include: Strength training, Endurance training, Flexibilty training, Gait and locomotor training, Neuromotor development, Passive ROM and Active ROM For the Purpose of:: To decrease pain, To decrease swelling/inflammation, To increase ROM, To improve muscle performance and motor function, To increase tolerance to activity/condition/position, To improve performance and independence with ADL's, To improve ability of physical actions for home/community/work/leisure, To improve gait and locomotor functions, To improve health of tissue, To decrease soft tissue restriction, To increase flexibility/ROM and To improve endurance Functional Training to Include: Gait training For the Purpose of:: To improve gait and locomotor functions Last Seen Last Seen: This patient was last seen in our office 06/21/22. Pertinent comments regarding their Physical therapy will appear below: JOSÉ MIGUEL PT as pt did not schedule additional appts At this point I will be discontinuing this patient from physical therapy. I would be happy to see this patient again in the future if found appropriate by the physician. Thank you! Elina Rayo, MPT Balance/Gait/Functional tests Balance/Special Test Scores Lower Extremity Functional Score: 33
== END 2022-06-21 19:00 | disposition home or self-care (01) ==
LOC: PT 08:00
PROVIDERS: PCP Nurse Practitioner Family; Referring Provider Physician Assistant; Visit Provider Physician Assistant
DX: M17.11 Unilateral primary osteoarthritis, right knee (principal); S83.411D Sprain of medial collateral ligament of right knee, subsequent encounter
CPT/HCPCS: 97110; 97161

== ENCOUNTER → 2023-09-05 | Outpatient (CLI) | payer MEDICARE, SELFPAY | END | disposition home or self-care (01) | LOC: VSLAB 13:47 | PROVIDERS: PCP Nurse Practitioner Family; Visit Provider Nurse Practitioner Family | DX: E03.9 Hypothyroidism, unspecified (principal) | CPT/HCPCS: 36415; 84443 ==

== ENCOUNTER → 2024-04-09 | Outpatient (CLI) | payer MEDICARE, SELFPAY ==
[2024-04-09 12:50] LABS: Absolute Lymphocyte Count 1.41 X10^3/uL (0.83-4.51); Absolute Neutrophil Count 4.9 X10^3/uL (2.0-7.7); Basophil# 0.03 X10^3/uL; Basophil% 0.4 % (0-1); Eosinophil# 0.17 X10^3/uL; Eosinophils% 2.3 % (0-5); Hematocrit 32.9 % (40-54); Hemoglobin 10.1 g/dL (13.0-16.5); Lymphocyte # 1.41 X10^3/ul (0.83-4.51); Lymphocyte % 19.4 % (19-41); Mean Corp Hgb Conc 30.7 g/dL (32-36); Mean Corpuscular Hgb 29.6 pg (27.0-32.0); Mean Corpuscular Volume 96.5 fL (80-94); Mean Platelet Vol. 10.3 fl (6.2-12.0); Monocyte# 0.73 X10^3/uL; NRBC Flagged by Analyzer 0 % (0-5); Neutrophil # 4.92 X10^3/uL (2.7-7.7); Neutrophil % 67.6 % (47-70); Platelet Count 247 K/mm3 (150-450); RBC Distribution Width CV 13.8 % (11.6-14.6); RBC Distribution Width SD 48.6 fl (35.1-43.9); Red Blood Count 3.41 M/mm3 (4.6-6.2); White Blood Count 7.3 K/mm3 (4.4-11.0)
[2024-04-09 13:02] LABS: Vitamin B12 466 pg/mL (211-911); Vitamin D,25 Hydroxy 15.4 ng/mL
[2024-04-09 13:10] LABS: ALB/GLOB Ratio 0.5 RATIO (0.9-2.4); AST(SGOT) 15 U/L (15-37); Alanine Aminotransfer ALT/SGPT 22 U/L (16-61); Albumin, Serum 2.9 g/dL (3.2-5.0); Alkaline Phosphatase 74 U/L (45-117); Anion Gap 3 (5-15); BUN 15 mg/dL (7-18); BUN/Creat Ratio 19.2 RATIO (10-20); Calcium,Total 8.8 mg/dL (8.5-10.1); Chloride 96 mmol/L (98-107); Cholesterol 223 mg/dL (200); Creatinine, Serum 0.78 mg/dL (0.70-1.30); EST Glomerular Filtration Rate 104 mL/min (>60); Est Glom Filt Rate - Afr Amer 126 mL/min (>60); Globulin 5.4 g/dL (2.2-4.2); Glucose 97 mg/dL (74-106); High Density Lipoprotein 55 mg/dL; Potassium 4.7 mmol/L (3.5-5.1); Protein, Total 8.3 g/dL (6.4-8.2); Sodium Level 133 mmol/L (136-145); T4 Free Direct 0.73 ng/dL (0.76-1.46); Triglycerides 91 mg/dL; Very Low Density Lipoprotein 18 mg/dL (5-40)
== END | disposition home or self-care (01) ==
LOC: VSLAB 10:35
PROVIDERS: PCP Nurse Practitioner Family; Visit Provider Nurse Practitioner Family
DX: E78.5 Hyperlipidemia, unspecified (principal); E03.9 Hypothyroidism, unspecified; E55.9 Vitamin D deficiency, unspecified
CPT/HCPCS: 36415; 80053; 80061; 82306; 82607; 84439; 84443; 85025

== ENCOUNTER → 2024-05-13 | Outpatient (CLI) | payer MEDICARE, SELFPAY ==
[2024-05-13 17:37] LABS: Absolute Lymphocyte Count 1.11 X10^3/uL (0.83-4.51); Absolute Neutrophil Count 6.1 X10^3/uL (2.0-7.7); Basophil# 0.02 X10^3/uL; Basophil% 0.2 % (0-1); Eosinophil# 0.11 X10^3/uL; Eosinophils% 1.3 % (0-5); Hemoglobin 9.7 g/dL (13.0-16.5); Lymphocyte # 1.11 X10^3/ul (0.83-4.51); Lymphocyte % 13.5 % (19-41); Mean Corp Hgb Conc 29.4 g/dL (32-36); Mean Corpuscular Hgb 29.1 pg (27.0-32.0); Mean Corpuscular Volume 99.1 fL (80-94); Mean Platelet Vol. 10.1 fl (6.2-12.0); Monocyte# 0.86 X10^3/uL; Monocyte% 10.5 % (0-10); NRBC Flagged by Analyzer 0 % (0-5); Neutrophil % 74.3 % (47-70); Platelet Count 268 K/mm3 (150-450); RBC Distribution Width CV 13.8 % (11.6-14.6); RBC Distribution Width SD 50.4 fl (35.1-43.9); Red Blood Count 3.33 M/mm3 (4.6-6.2); White Blood Count 8.2 K/mm3 (4.4-11.0)
== END | disposition home or self-care (01) ==
LOC: VSLAB 14:07
PROVIDERS: PCP Nurse Practitioner Family; Visit Provider Nurse Practitioner Family
DX: D64.9 Anemia, unspecified (principal)
CPT/HCPCS: 36415; 82746; 83540; 83550; 85025

== ENCOUNTER → 2024-06-09 | Outpatient (CLI) | payer MEDICARE, SELFPAY ==
[2024-06-09 17:24] LABS: Iron 89 ug/dL (65-175); Iron Binding Capacity,Total 242 ug/dL (250-450); Iron Binding Capacity,Unsat 153 ug/dL (228-428)
== END | disposition home or self-care (01) ==
LOC: VSLAB 13:25
PROVIDERS: PCP Nurse Practitioner Family
DX: D64.9 Anemia, unspecified (principal)
CPT/HCPCS: 83540; 83550

== ENCOUNTER 2024-07-30 07:23 | Inpatient (IN) | payer MEDICARE, SELFPAY ==
[2024-07-30] VITALS (33 sets, daily range): BP systolic 71–195; BP diastolic 53–100; PULSE 71–133; RESP 10–33; TEMP 36.2–37.2; O2SAT 88–100; BMI 26.5; BMI 25.4
--- NOTE | 2024-07-30 07:46 | EDS_ITS ---
HPI <Dr. Joe Sandoval DO - Last Filed: 07/30/24 17:14> History of Present Illness Chief Complaint: Shortness of Breath Informant: patient Onset/Context/Timing Onset: Days (3) Context: sudden Timing: Waxes and wanes Quality: Positive for Dyspnea on exertion Worsened by: Exertion Relieved by: Nothing Associated Symptoms cough, rhinorrhea, subjective, chills and white sputum; Negative for post nasal drip, ear pain, fever, sore throat, sweats, clear sputum, yellow sputum or green sputum Chest Pain: Positive for Continuous and Aching Narrative Narrative: Patient presents with shortness of breath that has been getting worse over the past 3 days. Patient states it began rather suddenly. Patient states it has been waxing and waning. Patient states that breathing is worse with any exertion. Patient admits to a cough with some white sputum. Patient also admits to some rhinorrhea. Patient admits to subjective chills. Patient admits to diffuse myalgias. Patient denies any fevers. Patient states nothing makes his breathing any better. PE Risk Factors: Positive for Cancer; Negative for OCP + Smoking + > 35, Prior DVT or PE, Recent immobilization, Recent surgery or Recent travel [facility] <Dr. Joe Sandoval DO - Last Filed: 07/30/24 17:14> [facility] Medical History (Updated 07/30/24 @ 14:[address] Joe Sandoval, ) Lung cancer History of lung cancer HLD (hyperlipidemia) HTN (hypertension) Tremor COPD (chronic obstructive pulmonary disease) AAA (abdominal aortic aneurysm) Hypothyroidism Home Medications ?Medication ?Instructions ?Recorded ?Last Taken ?Type aspirin 81 mg tablet,delayed 81 mg PO DAILY HEALTH 04/0707/29/24 History release (Adult Low Dose Aspirin) guaifenesin 1,200 mg tablet, 1,200 mg PO DAILY cough, congestion 02/16/21 Unknown History extended release 12 hr (Mucinex) ipratropium 0.5 mg-albuterol 3 mg See Rx Instructions .Route 06/15/22 Unknown Rx (2.5 mg base)/3 mL nebulization .COMPLEX #180 mL soln albuterol sulfate 90 mcg/actuation See Rx Instructions .Route 08/14/22 Unknown Rx aerosol inhaler .COMPLEX #18 ea omeprazole 40 mg capsule,delayed See Rx Instructions . Route 11/02/22 Unknown Rx release .COMPLEX #90 caps budesonide 160 mcg-glycopyr 9 2 inh inhalation BID 07/30/24 History mcg-formot 4.8 mcg/actuation HFA inhaler (Breztri Aerosphere) levothyroxine 75 mcg tablet 75 mcg PO DAILY 07/30/24 0 07/29/24 History magnesium 200 mg tablet 200 mg PO DAILY 07/30/24 History metoprolol succinate 25 mg 75 mg PO DAILY 07/30/24 History tablet,extended release 24 hr primidone 250 mg tablet 250 mg PO BID 07/30/2407/29 History Allergy/AdvReac Type Severity Reaction Status Date / Time No Known Allergies Allergy Verified 07/30/24 07:23 Surgical History Hx of cervical discectomy S/P AAA repair Social History household members: other details: Patient notes his nephew is currently residing with him. Smoking Status: Current every day smoker tobacco type: cigarettes how long ago did patient quit smoking: Quit 1 year ago, prior up to 2 ppd, decreased recently 2-3 cig/day. alcohol intake: never substance use type: does not use ROS <Dr. Joe Sandoval DO - Last Filed: 07/30/24 17:14> ROS ED Constitutional Constitutional ED: Reports chills; Denies fever(s) Eyes Eyes: Denies blurry vision or change in vision ENT ENT ED: Reports rhinorrhea; Denies sore throat Cardiovascular Cardiovascular: Reports chest pain; Denies palpitations Respiratory/Chest Respiratory/Chest: Reports cough and dyspnea Gastrointestinal Gastrointestinal: Denies nausea or vomiting Genitourinary Genitourinary ED: Denies dysuria or hematuria Musculoskeletal Musculoskeletal: Reports myalgias and neck pain Integumentary Denies abscess or rash Neurologic Neurologic: Denies headache(s) or weakness Allergic/Immunologic Allergic/Immunologic ED: Denies mouth swelling or urticaria EXAM <Dr. Joe Sandoval DO - Last Filed: 07/30/24 17:14> Physical Exam Const Vital Signs: 07/30/24 07:23 07/30/24 07:26 07/30/24 07:26 Temperature 97.2 F L 98.6 F Temperature Source Temporal Oral Pulse Rate 113 H 113 H Respiratory Rate 26 H 16 Respiratory Effort Short of Breath Respiratory Depth Shallow Respiratory Pattern Tachypnea Blood Pressure 142/73 H 146/78 H Blood Pressure Mean 96 100 Blood Pressure Position Blood Pressure Location Pulse Ox 97 95 Oxygen Delivery Method Nasal Cannula Nasal Cannula Nasal Cannula Oxygen Flow Rate (L/min) 6 6 Fraction of Inspired Oxygen (FIO2) 07/30/24 08:10 07/30/24 08:10 07/30/24 08:23 Temperature 98.6 F Temperature Source Oral Pulse Rate 108 H 104 H Respiratory Rate 20 H 22 H Respiratory Effort Respiratory Depth Respiratory Pattern Tachypnea Blood Pressure 165/82 H Blood Pressure Mean 109 Blood Pressure Position Blood Pressure Location Pulse Ox 93 94 Oxygen Delivery Method Nasal Cannula Nasal Cannula Oxygen Flow Rate (L/min) 4 5 Fraction of Inspired Oxygen (FIO2) 07/30/24 08:23 07/30/24 09:00 07/30/24 10:00 Temperature 98.6 F 98.6 F 98.6 F Temperature Source Oral Oral Temporal Pulse Rate 104 H 104 H 104 H Respiratory Rate 22 H 22 H 20 H Respiratory Effort Respiratory Depth Respiratory Pattern Blood Pressure 163/85 H 163/76 H 142/76 H Blood Pressure Mean 111 105 98 Blood Pressure Position Blood Pressure Location Pulse Ox 94 93 94 Oxygen Delivery Method Nasal Cannula Nasal Cannula Nasal Cannula Oxygen Flow Rate (L/min) 5 6 6 Fraction of Inspired Oxygen (FIO2) 07/30/24 10:15 07/30/24 10:40 07/30/24 10:51 Temperature 98.9 F Temperature Source Pulse Rate 108 H 112 H 110 H Respiratory Rate 24 H 29 H 28 H Respiratory Effort Respiratory Depth Respiratory Pattern Tachypnea Tachypnea Blood Pressure 148/76 H Blood Pressure Mean 100 Blood Pressure Position Blood Pressure Location Pulse Ox 93 90 Oxygen Delivery Method Oxygen Flow Rate (L/min) Fraction of Inspired Oxygen (FIO2) 50 07/30/24 10:51 07/30/24 11:00 07/30/24 12:10 Temperature 98.6 F Temperature Source Oral Pulse Rate 112 H 108 H Respiratory Rate 29 H 24 H 32 H Respiratory Effort Respiratory Depth Respiratory Pattern Tachypnea Blood Pressure 146/76 H Blood Pressure Mean 99 Blood Pressure Position Blood Pressure Location Pulse Ox 90 98 88 Oxygen Delivery Method Airvo Oxygen Flow Rate (L/min) Fraction of Inspired Oxygen (FIO2) 60 65 07/30/24 12:14 07/30/24 13:00 07/30/24 13:00 Temperature 98.1 F 98.5 F Temperature Source Oral Oral Pulse Rate 113 H 109 H Respiratory Rate 14 24 H 26 H Respiratory Effort Respiratory Depth Respiratory Pattern Blood Pressure 167/76 H 164/78 H Blood Pressure Mean 106 106 Blood Pressure Position Blood Pressure Location Pulse Ox 89 93 96 Oxygen Delivery Method Airvo Bi-pap Oxygen Flow Rate (L/min) Fraction of Inspired Oxygen (FIO2) 50 07/30/24 13:39 07/30/24 13:41 07/30/24 14:10 Temperature Temperature Source Pulse Rate 133 H 114 H 116 H Respiratory Rate 33 H 27 H 24 H Respiratory Effort Respiratory Depth Respiratory Pattern Tachypnea Blood Pressure 174/85 H 187/94 H Blood Pressure Mean 114 125 Blood Pressure Position Blood Pressure Location Pulse Ox 91 95 97 Oxygen Delivery Method Bi-pap Bi-pap Oxygen Flow Rate (L/min) 65 Fraction of Inspired Oxygen (FIO2) 75 75 07/30/24 15:00 07/30/24 15:34 07/30/24 16:00 Temperature Temperature Source Pulse Rate 118 H 113 H 108 H Respiratory Rate 28 H 18 26 H Respiratory Effort Respiratory Depth Respiratory Pattern Blood Pressure 195/83 H 184/78 H 151/88 H Blood Pressure Mean 120 113 109 Blood Pressure Position Blood Pressure Location Pulse Ox 93 94 94 Oxygen Delivery Method Bi-pap Bi-pap Bi-pap Oxygen Flow Rate (L/min) Fraction of Inspired Oxygen (FIO2) 65 07/30/24 16:54 07/30/24 17:20 07/30/24 18:00 Temperature Temperature Source Pulse Rate 113 H 103 H 104 H Respiratory Rate 16 16 18 Respiratory Effort Respiratory Depth Respiratory Pattern Normal Blood Pressure 153/100 H 97/68 Blood Pressure Mean 117 77 Blood Pressure Position Blood Pressure Location Pulse Ox 100 98 97 Oxygen Delivery Method Mechanical Ventilator Mechanical Ventilator Oxygen Flow Rate (L/min) Fraction of Inspired Oxygen (FIO2) 40 07/30/24 19:07 07/30/24 19:21 07/30/24 20:00 Temperature 97.2 F L Temperature Source Axillary Pulse Rate 81 71 75 Respiratory Rate 16 16 16 Respiratory Effort Respiratory Depth Respiratory Pattern Blood Pressure 85/65 L 71/53 L 76/58 L Blood Pressure Mean 71 59 64 Blood Pressure Position Blood Pressure Location Pulse Ox 98 100 99 Oxygen Delivery Method Mechanical Ventilator Mechanical Ventilator Oxygen Flow Rate (L/min) Fraction of Inspired Oxygen (FIO2) 07/30/24 20:07 07/30/24 20:23 Temperature Temperature Source Pulse Rate 74 71 Respiratory Rate 16 16 Respiratory Effort Respiratory Depth Respiratory Pattern Blood Pressure 76/58 L 77/57 L Blood Pressure Mean 64 63 Blood Pressure Position Semi-Fowlers Semi-Fowlers Blood Pressure Location Left Arm Left Arm Pulse Ox 99 96 Oxygen Delivery Method Mechanical Ventilator Mechanical Ventilator Oxygen Flow Rate (L/min) Fraction of Inspired Oxygen (FIO2) Positive well nourished and well developed General Appearance ED: well developed and NAD HEENT Reports moist mucous membranes atraumatic Neck supple and no meningeal signs Resp Auscultation: wheezes expiratory wheezes and throughout Cardio regular rhythm Rate: tachycardic GI non-tender and non-distended Palpation: soft Neuro oriented x3, CN's II-XII intact bilaterally and no sensory deficits noted [place] Coma Scale: document GCS findings Spontaneous Obeys Commands Oriented 15 Sensorium / Orientation: alert Speech: speech normal Motor Exam: strength 5/5 throughout Psych mental status grossly normal <Dr. Edvin Muniz, DO - Last Filed: 07/30/24 22:26> Physical Exam Const Vital Signs: 07/30/24 07:23 07/30/24 07:26 07/30/24 07:26 Temperature 97.2 F L 98.6 F Temperature Source Temporal Oral Pulse Rate 113 H 113 H Respiratory Rate 26 H 16 Respiratory Effort Short of Breath Respiratory Depth Shallow Respiratory Pattern Tachypnea Blood Pressure 142/73 H 146/78 H Blood Pressure Mean 96 100 Blood Pressure Position Blood Pressure Location Pulse Ox 97 95 Oxygen Delivery Method Nasal Cannula Nasal Cannula Nasal Cannula Oxygen Flow Rate (L/min) 6 6 Fraction of Inspired Oxygen (FIO2) 07/30/24 08:10 07/30/24 08:10 07/30/24 08:23 Temperature 98.6 F Temperature Source Oral Pulse Rate 108 H 104 H Respiratory Rate 20 H 22 H Respiratory Effort Respiratory Depth Respiratory Pattern Tachypnea Blood Pressure 165/82 H Blood Pressure Mean 109 Blood Pressure Position Blood Pressure Location Pulse Ox 93 94 Oxygen Delivery Method Nasal Cannula Nasal Cannula Oxygen Flow Rate (L/min) 4 5 Fraction of Inspired Oxygen (FIO2) 07/30/24 08:23 07/30/24 09:00 07/30/24 10:00 Temperature 98.6 F 98.6 F 98.6 F Temperature Source Oral Oral Temporal Pulse Rate 104 H 104 H 104 H Respiratory Rate 22 H 22 H 20 H Respiratory Effort Respiratory Depth Respiratory Pattern Blood Pressure 163/85 H 163/76 H 142/76 H Blood Pressure Mean 111 105 98 Blood Pressure Position Blood Pressure Location Pulse Ox 94 93 94 Oxygen Delivery Method Nasal Cannula Nasal Cannula Nasal Cannula Oxygen Flow Rate (L/min) 5 6 6 Fraction of Inspired Oxygen (FIO2) 07/30/24 10:15 07/30/24 10:40 07/30/24 10:51 Temperature 98.9 F Temperature Source Pulse Rate 108 H 112 H 110 H Respiratory Rate 24 H 29 H 28 H Respiratory Effort Respiratory Depth Respiratory Pattern Tachypnea Tachypnea Blood Pressure 148/76 H Blood Pressure Mean 100 Blood Pressure Position Blood Pressure Location Pulse Ox 93 90 Oxygen Delivery Method Oxygen Flow Rate (L/min) Fraction of Inspired Oxygen (FIO2) 50 07/30/24 10:51 07/30/24 11:00 07/30/24 12:10 Temperature 98.6 F Temperature Source Oral Pulse Rate 112 H 108 H Respiratory Rate 29 H 24 H 32 H Respiratory Effort Respiratory Depth Respiratory Pattern Tachypnea Blood Pressure 146/76 H Blood Pressure Mean 99 Blood Pressure Position Blood Pressure Location Pulse Ox 90 98 88 Oxygen Delivery Method Airvo Oxygen Flow Rate (L/min) Fraction of Inspired Oxygen (FIO2) 60 65 07/30/24 12:14 07/30/24 13:00 07/30/24 13:00 Temperature 98.1 F 98.5 F Temperature Source Oral Oral Pulse Rate 113 H 109 H Respiratory Rate 14 24 H 26 H Respiratory Effort Respiratory Depth Respiratory Pattern Blood Pressure 167/76 H 164/78 H Blood Pressure Mean 106 106 Blood Pressure Position Blood Pressure Location Pulse Ox 89 93 96 Oxygen Delivery Method Airvo Bi-pap Oxygen Flow Rate (L/min) Fraction of Inspired Oxygen (FIO2) 50 07/30/24 13:39 07/30/24 13:41 07/30/24 14:10 Temperature Temperature Source Pulse Rate 133 H 114 H 116 H Respiratory Rate 33 H 27 H 24 H Respiratory Effort Respiratory Depth Respiratory Pattern Tachypnea Blood Pressure 174/85 H 187/94 H Blood Pressure Mean 114 125 Blood Pressure Position Blood Pressure Location Pulse Ox 91 95 97 Oxygen Delivery Method Bi-pap Bi-pap Oxygen Flow Rate (L/min) 65 Fraction of Inspired Oxygen (FIO2) 75 75 07/30/24 15:00 07/30/24 15:34 07/30/24 16:00 Temperature Temperature Source Pulse Rate 118 H 113 H 108 H Respiratory Rate 28 H 18 26 H Respiratory Effort Respiratory Depth Respiratory Pattern Blood Pressure 195/83 H 184/78 H 151/88 H Blood Pressure Mean 120 113 109 Blood Pressure Position Blood Pressure Location Pulse Ox 93 94 94 Oxygen Delivery Method Bi-pap Bi-pap Bi-pap Oxygen Flow Rate (L/min) Fraction of Inspired Oxygen (FIO2) 65 07/30/24 16:54 07/30/24 17:20 07/30/24 18:00 Temperature Temperature Source Pulse Rate 113 H 103 H 104 H Respiratory Rate 16 16 18 Respiratory Effort Respiratory Depth Respiratory Pattern Normal Blood Pressure 153/100 H 97/68 Blood Pressure Mean 117 77 Blood Pressure Position Blood Pressure Location Pulse Ox 100 98 97 Oxygen Delivery Method Mechanical Ventilator Mechanical Ventilator Oxygen Flow Rate (L/min) Fraction of Inspired Oxygen (FIO2) 40 07/30/24 19:07 07/30/24 19:21 07/30/24 20:00 Temperature 97.2 F L Temperature Source Axillary Pulse Rate 81 71 75 Respiratory Rate 16 16 16 Respiratory Effort Respiratory Depth Respiratory Pattern Blood Pressure 85/65 L 71/53 L 76/58 L Blood Pressure Mean 71 59 64 Blood Pressure Position Blood Pressure Location Pulse Ox 98 100 99 Oxygen Delivery Method Mechanical Ventilator Mechanical Ventilator Oxygen Flow Rate (L/min) Fraction of Inspired Oxygen (FIO2) 07/30/24 20:07 07/30/24 20:23 Temperature Temperature Source Pulse Rate 74 71 Respiratory Rate 16 16 Respiratory Effort Respiratory Depth Respiratory Pattern Blood Pressure 76/58 L 77/57 L Blood Pressure Mean 64 63 Blood Pressure Position Semi-Fowlers Semi-Fowlers Blood Pressure Location Left Arm Left Arm Pulse Ox 99 96 Oxygen Delivery Method Mechanical Ventilator Mechanical Ventilator Oxygen Flow Rate (L/min) Fraction of Inspired Oxygen (FIO2) Neuro [place] Coma Scale: document GCS findings 15 MDM <Dr. Joe Sandoval, DO - Last Filed: 07/30/24 17:14> [facility] MDM Narrative Medical decision making narrative: Differential diagnosis includes pneumonia, bronchitis, viral illness, COPD exacerbation, congestive heart failure, cardiac dysrhythmia, cardiac ischemia, sepsis, and electrolyte abnormality. EKG will be obtained to assess for cardiac dysrhythmia and cardiac ischemia. Chest x-ray will be obtained to assess for pneumonia and bronchitis. CBC will be obtained to assess for leukocytosis and anemia. Basic metabolic profile will be obtained to assess for electrolyte abnormality and renal function. High-sensitivity troponin will be obtained to assess for cardiac ischemia. Serum lactate will be obtained to assess for sepsis. Blood cultures will be obtained to assess for sepsis. COVID-19, influenza, RSV PCR will be obtained to assess for viral illness. History & Record Review Additional record(s) reviewed:: Prior inpatient record, Prior outpatient record and Prior labs Lab Data Attestation: I reviewed the patient's lab results. Lab results narrative: CBC was reviewed. There is a leukocytosis of 19.4. There is a mild anemia with a hemoglobin of 10.5 and hematocrit 33.7. Basic metabolic profile was reviewed. Glucose is mildly elevated at 162. CO2 is slightly low at 92. Initial high- sensitivity troponin was reviewed and was normal at 18. Serum lactate was reviewed and was less than 1.0. Labs: Laboratory Results - last 24 hr 07/30/24 07/30/24 07:49 12:16 WBC 19.4 H RBC 3.44 L Hgb 10.5 L Hct 33.7 L MCV 98.0 H MCH 30.5 MCHC 31.2 L RDW Std Deviation 48.9 H RDW Coeff of [place] 13.7 Plt Count 221 MPV 10.8 Immature Gran % (Auto) 0.600 Neut % (Auto) 87.2 H Lymph % (Auto) 5.4 L Gordon % (Auto) 6.1 Eos % (Auto) 0.2 Baso % (Auto) 0.5 Absolute Neuts (auto) 16.9 H Absolute Lymphs (auto) 1.05 Nucleated RBC % 0 Sodium 135 Potassium 4.4 Chloride 92 L Carbon Dioxide 33.4 H Anion Gap 10 BUN 14 Creatinine 0.68 L Est GFR (MDRD) Non-Af 99 BUN/Creatinine Ratio 20.7 H Glucose 162 H Lactic Acid < 1.0 Calcium 8.7 Total Creatine Kinase 216 H Troponin T High Sens 18 Troponin T Hi Sens 2 Hr 13 NT pro BNP II 1410 H Triglycerides 78 ABG Data Attestation: I personally reviewed and interpreted this ABG as follows: Interpretation: There is a respiratory acidosis with a pH of 7.155 and PCO2 of 113.9. PO2 was 6 2.8, bicarb was 40.2, and O2 saturation was 81.5% on Airvo with an FiO2 of 60% Repeat ABG was obtained. pH was 7.13 and PCO2 was 123.9. Bicarb was 41.2. PO2 was 82 and oxygen saturation was 65% on BiPAP. After trial on BiPAP, repeat ABG was obtained. pH was 7.13 and PCO2 increased to 136.7. Bicarb was 45.1 and oxygen saturation was 65%. ABG results: ABG 07/30/24 07/30/24 07/30/24 12:46 14:55 16:12 Specimen Type ART ART ART Sample Site R Radial R Radial R Radial pH 7.16 L* 7.13 L* 7.13 L* Bicarbonate Actual 40.2 H 41.2 H 45.1 H Total CO2 44 45 49 Base Excess 11 H 12 H 16 H O2 Saturation 82 L 90 L 88 L O2 % 60.0 65.0 65.0 ABG pCO2 113.9 H* 123.9 H* 136.7 H* ABG pO2 63 L 82 79 Octavio Test Positive N/A Positive Respiration Rate 10 10 O2 Delivery Device airvo BiPAP BiPAP Vent Mode Not entered Not entered Not entered Tidal Volume POC PEEP 8 8 Peak Inspir Pressure 14 Crit Call To/Read Back Yes Yes Yes Blood Gas Notified Whom lori sandoval Blood Gas Notified Time 12:48:07 15:00:48 16:14:13 Clinical Comments 60L 07/30/24 17:46 Specimen Type ART Sample Site R Radial pH 7.35 Bicarbonate Actual 41.0 H Total CO2 43 Base Excess 15 H O2 Saturation 94 L O2 % 40.0 ABG pCO2 74.8 H* ABG pO2 77 Octavio Test Positive Respiration Rate 16 O2 Delivery Device Adult Vent Vent Mode AC Tidal Volume 500.0 POC PEEP 5 Peak Inspir Pressure Crit Call To/Read Back Yes Blood Gas Notified Whom lori Blood Gas Notified Time 17:47:48 Clinical Comments Radiography Chest X-Ray - ED: 2 View, Read by ED Physician, Read by Radiologist and Right Infiltrate CTA PE Study: No Evidence of PE and No Evidence of Dissection Diagnostic Testing: Clinical Impression(s) from Imaging Studies Chest X-Ray 07/30/24 08:30 IMPRESSION: Heterogeneous infiltration in the right upper lobe with loss of volume in the right upper lobe and possible air-fluid level as described. Infiltrate in the right lower lobe. Correlation with CT scan of the thorax is recommended for further evaluation. Reading Location: [id number] Chest CTA 07/30/24 08:50 IMPRESSION: No evidence of pulmonary embolism. Right hilar mass with postobstructive pneumonitis in the right upper lobe with a cavitation as described. 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 Reading Location: [facility] Chest X-Ray 07/30/24 16:21 IMPRESSION: 1. Appropriate positioning of the endotracheal tube. 2. Acceptable but slightly shallow positioning of the enteric tube with side hole probably just beyond the GE junction and tip within the proximal stomach. Consider slight advancement for optimal placement. 3. Otherwise similar appearance of the chest. Reading Location: [facility] Chest X-Ray 07/30/24 19:01 IMPRESSION: See above Reading Location: [facility] and lateral chest x-ray was obtained. There are 2 views. On my independent interpretation, lung prieto show infiltrate in the right upper lobe and loss of volume in the right upper lobe. There is a possible air-fluid level in the right upper lobe. There is also an infiltrate in the right lower lobe. There is normal cardiac silhouette. Bony thorax is normal. Radiologist also interpreted the x-ray and agrees. EKG Initial EKG: Attestation: I personally reviewed and interpreted this EKG as follows: Interpretation: Sinus Tachycardia (111), RBBB and Non-Specific ST Changes Comments: EKG was obtained. On my independent interpretation, it shows sinus tachycardia with a rate of 111. HI interval was normal at 178 ms. QRS interval was normal at 120 ms. QTc interval is normal at 478 ms. [place] is normal. There is a right bundle branch block pattern noted. There is right atrial enlargement. There are nonspecific ST-T wave changes. There is no change compared to previous EKG dated 02/15/2021. Prior EKG tracings: available for review Prior: Unchanged (02/15/2021) Management Discussion w/another healthcare provider: Hospitalist and [employer] Technician Treatment and Re-Evaluation :: Patient was given a DuoNeb aerosol and albuterol aerosol. Patient states this helped. Patient was started on Rocephin and Zithromax. Patient's breathing became worse again. Patient was given a repeat albuterol aerosol. Patient's o xygen saturation continued to diminish. Patient was started on Airvo. Case was discussed with Dr. Rosas, hospitalist. He recommended transferring the patient to a higher level of care. Case was discussed with Dr. Mittal from pulmonology. He states that the patient probably needs a bronchoscopy and a VATS procedure. He states that he is unable to perform these this week and he will be out of t own next week. Because of this, he recommended transfer. Patient requested to go to [facility]. Case was discussed with [facility] transfer [facility]. They do not have the facilities at [facility]. Case was discussed with Dr. Pineda. He excepted the patient to be transferred to ICU at [place]. After the patient was on Airvo, a arterial blood gas was obtained. There is a respiratory acidosis with pH of 7.155 and a PCO2 of 113.9. Oxygen saturation is 81.5%. pO2 was 62.8. Because of this, patient was started on BiPAP. Patient was advised of the need for transfer. Patient is agreeable with this. Patient and family understood and were agreeable with the plan. All questions were answered. Because of the patient's increasing respiratory acidosis and CO2 retention, decision was made to electively intubate the patient. Patient was agreeable with this. Patient was given etomidate and rocuronium. Patient was intubated with a 7.5 ET tube to 22 cm at the lip. There was good color change on capnography. Breath sounds were equal bilaterally. Patient tolerated procedure well. Patient was started on fentanyl and propofol for sedation. NG tube was p laced after intubation. Postprocedure chest x-ray will be obtained. Care of the patient was turned over to the oncoming physician pending transfer. <Dr. Edvin Muniz, DO - Last Filed: 07/30/24 22:26> MDM MDM Narrative Medical decision making narrative: Differential diagnosis includes pneumonia, bronchitis, viral illness, COPD exacerbation, congestive heart failure, cardiac dysrhythmia, cardiac ischemia, sepsis, and electrolyte abnormality. EKG will be obtained to assess for cardiac dysrhythmia and cardiac ischemia. Chest x-ray will be obtained to assess for pneumonia and bronchitis. CBC will be obtained to assess for leukocytosis and anemia. Basic metabolic profile will be obtained to assess for electrolyte abnormality and renal function. High-sensitivity troponin will be obtained to assess for cardiac ischemia. Serum lactate will be obtained to assess for sepsis. Blood cultures will be obtained to assess for sepsis. COVID-19, influenza, RSV PCR will be obtained to assess for viral illness. Update 20 to 24 hours I was called emergently to the room as the patient suddenly became hypotensive. Nurses were having a difficult time palpating a pulse. There was a sinus rhythm on the monitor. I could feel a faint femoral pulse. Bedside ultrasound demonstrated continued cardiac motion. Sedation was stopped. I emergently placed a right IJ triple-lumen central line under ultrasound guidance using the modified Salinger technique and sterile procedures. My independent interpretation of the postprocedural film is no pneumothorax adequate placement of line. The line was approved for use and the patient received Levophed. Propofol was discontinued and I added Precedex. We do not have a bed assignment yet. We have called [facility] several times and he is still in the queue for a bed. As it has been about 8 hours after acceptance I will speak with the hospitalist regarding admission Lab Data Labs: Laboratory Results - last 24 hr 07/30/24 07/30/24 07:49 12:16 WBC 19.4 H RBC 3.44 L Hgb 10.5 L Hct 33.7 L MCV 98.0 H MCH 30.5 MCHC 31.2 L RDW Std Deviation 48.9 H RDW Coeff of Yola 13.7 Plt Count 221 MPV 10.8 Immature Gran % (Auto) 0.600 Neut % (Auto) 87.2 H Lymph % (Auto) 5.4 L Gordon % (Auto) 6.1 Eos % (Auto) 0.2 Baso % (Auto) 0.5 Absolute Neuts (auto) 16.9 H Absolute Lymphs (auto) 1.05 Nucleated RBC % 0 Sodium 135 Potassium 4.4 Chloride 92 L Carbon Dioxide 33.4 H Anion Gap 10 BUN 14 Creatinine 0.68 L Est GFR (MDRD) Non-Af 99 BUN/Creatinine Ratio 20.7 H Glucose 162 H Lactic Acid < 1.0 Calcium 8.7 Total Creatine Kinase 216 H Troponin T High Sens 18 Troponin T Hi Sens 2 Hr 13 NT pro BNP II 1410 H Triglycerides 78 ABG Data ABG results: ABG 07/30/24 07/30/24 07/30/24 12:46 14:55 16:12 Specimen Type ART ART ART Sample Site R Radial R Radial R Radial pH 7.16 L* 7.13 L* 7.13 L* Bicarbonate Actual 40.2 H 41.2 H 45.1 H Total CO2 44 45 49 Base Excess 11 H 12 H 16 H O2 Saturation 82 L 90 L 88 L O2 % 60.0 65.0 65.0 ABG pCO2 113.9 H* 123.9 H* 136.7 H* ABG pO2 63 L 82 79 Octavio Test Positive N/A Positive Respiration Rate 10 10 O2 Delivery Device airvo BiPAP BiPAP Vent Mode Not entered Not entered Not entered Tidal Volume POC PEEP 8 8 Peak Inspir Pressure 14 Crit Call To/Read Back Yes Yes Yes Blood Gas Notified Whom lori sandoval Blood Gas Notified Time 12:48:07 15:00:48 16:14:13 Clinical Comments 60L 07/30/24 17:46 Specimen Type ART Sample Site R Radial pH 7.35 Bicarbonate Actual 41.0 H Total CO2 43 Base Excess 15 H O2 Saturation 94 L O2 % 40.0 ABG pCO2 74.8 H* ABG pO2 77 Octavio Test Positive Respiration Rate 16 O2 Delivery Device Adult Vent Vent Mode AC Tidal Volume 500.0 POC PEEP 5 Peak Inspir Pressure Crit Call To/Read Back Yes Blood Gas Notified Whom lori Blood Gas Notified Time 17:47:48 Clinical Comments Radiography Diagnostic Testing: Clinical Impression(s) from Imaging Studies Chest X-Ray 07/30/24 08:30 IMPRESSION: Heterogeneous infiltration in the right upper lobe with loss of volume in the right upper lobe and possible air-fluid level as described. Infiltrate in the right lower lobe. Correlation with CT scan of the thorax is recommended for further evaluation. Reading Location: [id number] Chest CTA 07/30/24 08:50 IMPRESSION: No evidence of pulmonary embolism. Right hilar mass with postobstructive pneumonitis in the right upper lobe with a cavitation as described. 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 Reading Location: [id number] Chest X-Ray 07/30/24 16:21 IMPRESSION: 1. Appropriate positioning of the endotracheal tube. 2. Acceptable but slightly shallow positioning of the enteric tube with side hole probably just beyond the GE junction and tip within the proximal stomach. Consider slight advancement for optimal placement. 3. Otherwise similar appearance of the chest. Reading Location: [id number] Chest X-Ray 07/30/24 19:01 IMPRESSION: See above Reading [facility] Discussion w/another healthcare provider: Hospitalist (Dr Escobar, Dr Leigh) Procedures <Dr. Joe Sandoval, DO - Last Filed: 07/30/24 17:14> Intubations Intubation Method: orotracheal Intubation Verification: Positive color change and Bilateral breath sounds confirmed Intubation Complications: no complications <Dr. Joe Sandoval, DO - Last Filed: 07/30/24 17:14> Critical Care Time Critical Care Time: Yes Critical care time (excluding procedures): 30-74 minutes (41), Including time spent:, Discussing w/Patient &/or Family/Protective Services Case Worker, Discussing w/Consultants, Arranging Admission or Transfer and Performing Direct Patient Care at Bedside Discharge Plan Dx/Rx/DC Orders Clinical Impression: Pneumonia, Hypoxia, Lung cancer, HTN (hypertension), COPD (chronic obstructive pulmonary disease) Disposition Disposition: Acute Care Hospital [facility] Discharge Date/Time: 07/30/24 21:28
--- NOTE | 2024-07-30 07:59 | EKG12_ITS ---
Test Reason : SOB Blood Pressure : */* mmHG Vent. Rate : 111 BPM Atrial Rate : 111 BPM P-R Int : 178 ms QRS Dur : 120 ms QT Int : 352 ms P-R-T Axes : 68 54 55 degrees QTcB Int : 478 ms Critical Test Result: STEMI Sinus tachycardia Right atrial enlargement Right bundle branch block Confirmed by DIAMANTE PABON, YENI ([id number]), social media editor AARON NOYOLA ([id number]) on 08/03/2024 8:40:48 AM Referred By: Confirmed By: YENI BOBBY MD
[2024-07-30] MEDS: Ipratropium/Albuterol Sulfate 3 ML AMPUL.NEB INHALATION (08:08)
[2024-07-30] MEDS: Albuterol 2.5 MG/3 ML VIAL.NEB. INHALATION (08:08)
[2024-07-30 08:15] LABS: Absolute Lymphocyte Count 1.05 X10^3/uL (0.83-4.51); Absolute Neutrophil Count 16.9 X10^3/uL (2.0-7.7); Basophil% 0.5 % (0-1); Eosinophil# 0.04 X10^3/uL; Eosinophils% 0.2 % (0-5); Hematocrit 33.7 % (40-54); Hemoglobin 10.5 g/dL (13.0-16.5); Lymphocyte # 1.05 X10^3/ul (0.83-4.51); Lymphocyte % 5.4 % (19-41); Mean Corp Hgb Conc 31.2 g/dL (32-36); Mean Corpuscular Hgb 30.5 pg (27.0-32.0); Mean Platelet Vol. 10.8 fl (6.2-12.0); Monocyte# 1.18 X10^3/uL; Monocyte% 6.1 % (0-10); NRBC Flagged by Analyzer 0 % (0-5); Neutrophil # 16.91 X10^3/uL (2.7-7.7); Neutrophil % 87.2 % (47-70); POSITIVE MORPHOLOGY YES; Platelet Count 221 K/mm3 (150-450); RBC Distribution Width CV 13.7 % (11.6-14.6); RBC Distribution Width SD 48.9 fl (35.1-43.9); Red Blood Count 3.44 M/mm3 (4.6-6.2); White Blood Count 19.4 K/mm3 (4.4-11.0)
[2024-07-30 08:25] LABS: Differential Indicated SCAN CRITERIA MET
--- NOTE | 2024-07-30 08:30 | RAD_ITS ---
PROCEDURE: CHEST PA AND LATERAL 07/30/2024 REASON FOR EXAM: DYSPNEA COPD. TECHNIQUE: Frontal and lateral views of the chest. COMPARISON: Prior study dated February 15, 2021. FINDINGS: Hardware: EKG electrodes are seen. Heart: The heart size is normal. Mediastinum: Widening of the right paratracheal space and right hilar region. Lungs: Heterogeneous consolidation in the right upper lobe with volume loss. Findings suggestive of possible air-fluid level within the soft tissue mass/consolidation suggestive of possible infected bulla or necrotizing pneumonia or mass. Increased markings are also seen in the right infrahilar region suggestive of possible infiltrate. Correlation with CT scan is recommended. Bones: Degenerative changes are identified within the thoracic spine.. Prior fusion of the lower cervical spine. RAD/Chest PA and Lateral IMPRESSION: Heterogeneous infiltration in the right upper lobe with loss of volume in the r ight upper lobe and possible air-fluid level as described. Infiltrate in the right lower lobe. Correlation with CT scan of th e thorax is recommended for further evaluation. Reading Location: [id number]
[2024-07-30 08:45] LABS: Troponin T High Sensitivity 18 ng/L (<=22)
[2024-07-30 08:46] LABS: Anion Gap 10 (5-15); BUN 14 mg/dL (4-19); BUN/Creat Ratio 20.7 RATIO (10-20); Calcium,Total 8.7 mg/dL (7.6-11.0); Carbon Dioxide 33.4 mmol/L (21.0-32.0); Chloride 92 mmol/L (98-108); Creatinine, Serum 0.68 mg/dL (0.70-1.20); EST Glomerular Filtration Rate 99 (>60); Glucose 162 mg/dL (70-99); Potassium 4.4 mmol/L (3.3-5.1); Sodium Level 135 mmol/L (133-145)
[2024-07-30 08:49] LABS: Lactic Acid < 1.0 mmol/L (0.0-2.0)
--- NOTE | 2024-07-30 08:50 | CT_ITS ---
PROCEDURE: CTA CHEST W/WO CONTRAST 07/30/2024 REASON FOR EXAM: DYSPNEA Heterogeneous consolidation in the right upper lobe. TECHNIQUE: CTA axial imaging of the chest with intravenous contrast. Multiplanar and multisequence images were obtained. PATIENT PREPARATION: Per protocol One or more dose reduction techniques were used (e.g., Automated exposure control, adjustment of the mA and/or kV according to patient size, use of iterative reconstruction technique). CONTRAST: Isovue 370 VOLUME: 100 mL RADIATION DOSE SUMMARY: CTDlvol: 9.5 mGy DLP: 393.02 mGycm COMPARISON: Prior chest radiograph done earlier in the day. Prior CT scan of the thorax dated February 15, 2021. FINDINGS: Hardware: EKG electrodes are seen. Lymph nodes: Right hilar mass. Heart: Coronary artery calcifications are noted. Thoracic Aorta: No thoracic aortic aneurysm or dissection. Pulmonary Vessels: No evidence of pulmonary embolism. Lungs and Airways: Right hilar mass with the collapse of the right upper lobe with postobstructive pneumonitis and infiltration. There is evidence of cavitation in the upper lateral aspect of the right upper lobe consolidation/mass. This may represent either a necrotizing tumor versus possible pneumonitis with necrosis. A neoplastic process with postobstructive pneumonitis should be ruled out. Correlation with bronchoscopy recommended. There is narrowing of the right upper lobe bronchus. Heterogeneous increased markings in the right lower lobe suggestive of the possible interstitial spread with the metastatic nodular densities. Pleura: No significant effusion. Upper Abdomen: Hyperplasia of the left adrenal gland. Bones: Degenerative changes of the thoracic spine. CT/CTA Chest W/WO Contrast IMPRESSION: No evidence of pulmonary embolism. Right hilar mass with postobstructive pneum onitis in the right upper lobe with a cavitation as described. Heterogeneous appearance of the right lower lobe with increased interstitial ma rkings as well as irregular nodular density suggestive of right bronchogenic carcinoma with metastasis. Reading Location: [facility]
[2024-07-30] MEDS: Ceftriaxone 2 GM in 0.9% Normal Saline (50mL MB+) 50 ML IV (09:35)
[2024-07-30] MEDS: Azithromycin 500 MG in 0.9% Normal Saline (250mL Bag) 250 ML 255 MG IV (10:11)
--- NOTE | 2024-07-30 11:34 | CPS ---
increased to 50L/60% to due desaturations
[2024-07-30 12:51] LABS: Allen Test Positive; Base Excess 11 mmol/L (-2 to +2); Bicarbonate 40.2 mmol/L (22-26); Blood Gas Specimen Type ART; Comment 60L; Mode Not entered; O2 Delivery Device airvo; PO2 63 mmHG (75-100); SITE R Radial; SO2 82 % (95-99); Time Given 12:48:07; Total Carbon Dioxide 44 mmol/L; pCO2 113.9 mmHg (35-45); pH 7.16 (7.35-7.45)
[2024-07-30 12:52] LABS: Troponin T High Sens 2 HR 13 ng/L (<=22)
[2024-07-30 15:03] LABS: Base Excess 12 mmol/L (-2 to +2); Bicarbonate 41.2 mmol/L (22-26); Blood Gas Specimen Type ART; Mode Not entered; O2 Delivery Device BiPAP; PEEP 8; PIP 14; PO2 82 mmHG (75-100); RR 10; SITE R Radial; SO2 90 % (95-99); Time Given 15:00:48; Total Carbon Dioxide 45 mmol/L; pCO2 123.9 mmHg (35-45); pH 7.13 (7.35-7.45)
[2024-07-30 16:17] LABS: Allen Test Positive; Base Excess 16 mmol/L (-2 to +2); Bicarbonate 45.1 mmol/L (22-26); Blood Gas Specimen Type ART; Mode Not entered; O2 Delivery Device BiPAP; PEEP 8; PO2 79 mmHG (75-100); RR 10; SITE R Radial; SO2 88 % (95-99); Time Given 16:14:13; Total Carbon Dioxide 49 mmol/L; pCO2 136.7 mmHg (35-45); pH 7.13 (7.35-7.45)
--- NOTE | 2024-07-30 16:21 | RAD_ITS ---
PROCEDURE: CHEST 1 VIEW (PORTABLE), 07/30/2024 5:21 p.m. REASON FOR EXAM: INTUBATION TECHNIQUE: A single portable AP view of the chest was obtained. COMPARISON: 9:05 a.m. FINDINGS: Heart: Grossly similar.. Mediastinum: Grossly similar. Lungs/pleura: RIGHT-sided airspace disease better evaluated on recent CTA. No sizeable pleural effusion or visible pneumothorax. Bones: ACDF. Old RIGHT rib fractures better seen on CTA. Lines and support devices: Endotracheal tube tip projects over the midthoracic trachea. Enteric tube tip over the proximal stomach and side hole likely just beyond the GE junction. Other: None. RAD/Chest 1 View (Portable) IMPRESSION: 1. Appropriate positioning of the endotracheal tube. 2. Acceptable but slightly shallow positioning of the enteric tube with side ho le probably just beyond the GE junction and tip within the proximal stomach. Consider slight advancement for optimal placement . 3. Otherwise similar appearance of the chest. Reading Location: [facility]
[2024-07-30] MEDS: Etomidate 20 MG/10 ML Vial IV (16:54)
[2024-07-30] MEDS: Rocuronium Bromide 50 MG/5 ML Vial 73 MG IV (16:54)
[2024-07-30] MEDS: fentaNYL 100 MCG/2 ML Ampul 50 MCG IV ×2 (17:07→17:54)
[2024-07-30] MEDS: fentaNYL drip 100 ML 2.5 MCG CONT INF (17:07)
[2024-07-30] MEDS: Propofol 10MG/Ml 1,000 MG/100 ML Bottle 5 MG CONT INF (17:09)
[2024-07-30 17:51] LABS: Allen Test Positive; Base Excess 15 mmol/L (-2 to +2); Blood Gas Specimen Type ART; Mode AC; O2 Delivery Device Adult Vent; PEEP 5; PO2 77 mmHG (75-100); RR 16; SITE R Radial; SO2 94 % (95-99); Time Given 17:47:48; Total Carbon Dioxide 43 mmol/L; pCO2 74.8 mmHg (35-45); pH 7.35 (7.35-7.45)
--- NOTE | 2024-07-30 17:54 | ED.RN ---
PER KENIA ESPINOZA TO TITRATE IV PROPOFOL TO 30 MCG/KG/MIN AT THIS TIME.
--- NOTE | 2024-07-30 19:01 | RAD_ITS ---
PROCEDURE: CHEST 1 VIEW (PORTABLE) 07/30/2024 REASON FOR EXAM: CENTRAL LINE PLACEMENT TECHNIQUE: Frontal view of the chest. COMPARISON: None FINDINGS: Hardware: Right central venous catheter, with the tip in the cavoatrial junction. Heart: Normal cardiomediastinal silhouette. Lungs: Ruby airspace opacities and perihilar scarring. No pneumothorax. Trace right pleural effusion. Bones: Degenerative changes are identified within the thoracic spine. Other: RAD/Chest 1 View (Portable) IMPRESSION: See above Reading Location: [facility]
[2024-07-30] MEDS: dexMEDEtomidine 400 MCG in 0.9% Normal Saline (100mL Bag) 96 ML 10.5 MCG CONT INF (19:03)
--- NOTE | 2024-07-30 19:13 | EKG12_ITS ---
Test Reason : MILENA Blood Pressure : */* mmHG Vent. Rate : 78 BPM Atrial Rate : 78 BPM P-R Int : 156 ms QRS Dur : 122 ms QT Int : 368 ms P-R-T Axes : 77 64 66 degrees QTcB Int : 419 ms Normal sinus rhythm Biatrial enlargement Right bundle branch block Abnormal ECG Confirmed by DIAMANTE PABON, YENI ([id number]), assistant film editor AARON NOYOLA ([id number]) on 08/03/2024 8:42:07 AM Referred By: Confirmed By: YENI BOBBY MD
[2024-07-30] MEDS: Norepinephrine 8 MG in 0.9% Normal Saline (250mL Bag) 242 ML 9.4 MG CONT INF (19:21)
--- NOTE | 2024-07-30 19:55 | PCA ---
NURSE ASKED THIS MEDICAL LIAISON TO CALL AND UPDATE [facility] WITH PT CHANGE OF STATUS.
--- NOTE | 2024-07-30 20:47 | PCM.HP.STD ---
HPI - General General Date of Admission: 07/30/24 Date of Service: 07/30/24 Chief Complaint: SOB HPI Narrative JACK GARCÍA, with a past medical history of lung cancer with prior concurrent chemotherapy and radiation therapy hypertension, PVD [history of aorta iliac bypass with bilateral common iliac endarterectomy 2013], COPD, cervical degenerative disease is a 69 M who presents today due to concerns regarding progressive shortness of breath since last couple of days with associated cough and dyspnea on exertion. Much of the history is from the chart as well as from family member [niece] bedside, patient is being admitted after intubation mechanical ventilation. At the time of presentation he endorsed ongoing cough with sputum production with subjective chills and rhinorrhea and diffuse myalgias. He has a history of 35 pack years of smoking with no recent immobilization surgery or travel. History of lung cancer manage has successfully completed chemoradiation therapy. On the time of presentation to the ED he was afebrile requiring 6 L oxygen through nasal cannula but ABG showed acute on chronic respiratory failure with acute respiratory acidosis with compensatory metabolic alkalosis. Respiratory acidosis worsened despite using Airvo and BiPAP and a decision was made for rapid sequence intubation mechanical ventilation. Given his history of prior lung cancer as well as recent x-ray showing heterogenous infiltration in the right upper lobe with loss of volume in the right upper lobe and possible air-fluid level suggestive of right hilar mass with postobstructive pneumonitis in right upper lobe with cavitation he was recommended to be transferred to treatment clinic [facility] for further management. He has been accepted to the hospital but no beds are available at this time. [facility] Medical History (Updated 07/30/24 @ 14:[address] Joe Sandoval, DO) Lung cancer History of lung cancer HLD (hyperlipidemia) HTN (hypertension) Tremor COPD (chronic obstructive pulmonary disease) AAA (abdominal aortic aneurysm) Hypothyroidism Home Medications ?Medication ?Instructions ?Recorded ?Last Taken ?Type aspirin 81 mg tablet,delayed 81 mg PO DAILY HEALTH 02/15/21 07/29/24 History release (Adult Low Dose Aspirin) guaifenesin 1,200 mg tablet, 1,200 mg PO DAILY cough, congestion 02/16/21 Unknown History extended release 12 hr (Mucinex) ipratropium 0.5 mg-albuterol 3 mg See Rx Instructions .Route 06/15/22 Unknown Rx (2.5 mg base)/3 mL nebulization .COMPLEX #180 mL soln albuterol sulfate 90 mcg/actuation See Rx Instructions .Route 08/14/22 Unknown Rx aerosol inhaler .COMPLEX #18 ea omeprazole 40 mg capsule,delayed See Rx Instructions .Route 11/02/22 Unknown Rx release .COMPLEX #90 caps budesonide 160 mcg-glycopyr 9 2 inh inhalation BID 07/30/24 07/30/24 History mcg-formot 4.8 mcg/actuation HFA inhaler (Breztri Aerosphere) levothyroxine 75 mcg tablet 75 mcg PO DAILY 07/30/24 07/29/24 History magnesium 200 mg tablet 200 mg PO DAILY 07/30/24 07/29/24 History metoprolol succinate 25 mg 75 mg PO DAILY 07/30/24 07/29/24 History tablet,extended release 24 hr primidone 250 mg tablet 250 mg PO BID 07/30/24 07/29/24 History Allergy/AdvReac Type Severity Reaction Status Date / Time No Known Allergies Allergy Verified 07/30/24 07:23 Surgical History Hx of cervical discectomy S/P AAA repair Social History household members: other details: Patient notes his nephew is currently residing with him. Smoking Status: Current every day smoker tobacco type: cigarettes how long ago did patient quit smoking: Quit 1 year ago, prior up to 2 ppd, decreased recently 2-3 cig/day. alcohol intake: never substance use type: does not use ROS Review of Systems ROS Unobtainable: due to endotracheal tube; Denies due to encephalopathy, due to mental condition, due to mental status or other Vital Signs Vital Signs Vital Signs: 07/30/24 07:23 07/30/24 07:26 07/30/24 07:26 Temperature 97.2 F L 98.6 F Temperature Source Temporal Oral Pulse Rate 113 H 113 H Respiratory Rate 26 H 16 Respiratory Effort Short of Breath Respiratory Depth Shallow Respiratory Pattern Tachypnea Blood Pressure 142/73 H 146/78 H Blood Pressure Mean 96 100 Blood Pressure Position Blood Pressure Location Pulse Ox 97 95 Oxygen Delivery Method Nasal Cannula Nasal Cannula Nasal Cannula Oxygen Flow Rate (L/min) 6 6 Fraction of Inspired Oxygen (FIO2) 07/30/24 08:10 07/30/24 08:10 07/30/24 08:23 Temperature 98.6 F Temperature Source Oral Pulse Rate 108 H 104 H Respiratory Rate 20 H 22 H Respiratory Effort Respiratory Depth Respiratory Pattern Tachypnea Blood Pressure 165/82 H Blood Pressure Mean 109 Blood Pressure Position Blood Pressure Location Pulse Ox 93 94 Oxygen Delivery Method Nasal Cannula Nasal Cannula Oxygen Flow Rate (L/min) 4 5 Fraction of Inspired Oxygen (FIO2) 07/30/24 08:23 07/30/24 09:00 07/30/24 10:00 Temperature 98.6 F 98.6 F 98.6 F Temperature Source Oral Oral Temporal Pulse Rate 104 H 104 H 104 H Respiratory Rate 22 H 22 H 20 H Respiratory Effort Respiratory Depth Respiratory Pattern Blood Pressure 163/85 H 163/76 H 142/76 H Blood Pressure Mean 111 105 98 Blood Pressure Position Blood Pressure Location Pulse Ox 94 93 94 Oxygen Delivery Method Nasal Cannula Nasal Cannula Nasal Cannula Oxygen Flow Rate (L/min) 5 6 6 Fraction of Inspired Oxygen (FIO2) 07/30/24 10:15 07/30/24 10:40 07/30/24 10:51 Temperature 98.9 F Temperature Source Pulse Rate 108 H 112 H 110 H Respiratory Rate 24 H 29 H 28 H Respiratory Effort Respiratory Depth Respiratory Pattern Tachypnea Tachypnea Blood Pressure 148/76 H Blood Pressure Mean 100 Blood Pressure Position Blood Pressure Location Pulse Ox 93 90 Oxygen Delivery Method Oxygen Flow Rate (L/min) Fraction of Inspired Oxygen (FIO2) 50 07/30/24 10:51 07/30/24 11:00 07/30/24 12:10 Temperature 98.6 F Temperature Source Oral Pulse Rate 112 H 108 H Respiratory Rate 29 H 24 H 32 H Respiratory Effort Respiratory Depth Respiratory Pattern Tachypnea Blood Pressure 146/76 H Blood Pressure Mean 99 Blood Pressure Position Blood Pressure Location Pulse Ox 90 98 88 Oxygen Delivery Method Airvo Oxygen Flow Rate (L/min) Fraction of Inspired Oxygen (FIO2) 60 65 07/30/24 12:14 07/30/24 13:00 07/30/24 13:00 Temperature 98.1 F 98.5 F Temperature Source Oral Oral Pulse Rate 113 H 109 H Respiratory Rate 14 24 H 26 H Respiratory Effort Respiratory Depth Respiratory Pattern Blood Pressure 167/76 H 164/78 H Blood Pressure Mean 106 106 Blood Pressure Position Blood Pressure Location Pulse Ox 89 93 96 Oxygen Delivery Method Airvo Bi-pap Oxygen Flow Rate (L/min) Fraction of Inspired Oxygen (FIO2) 50 07/30/24 13:39 07/30/24 13:41 07/30/24 14:10 Temperature Temperature Source Pulse Rate 133 H 114 H 116 H Respiratory Rate 33 H 27 H 24 H Respiratory Effort Respiratory Depth Respiratory Pattern Tachypnea Blood Pressure 174/85 H 187/94 H Blood Pressure Mean 114 125 Blood Pressure Position Blood Pressure Location Pulse Ox 91 95 97 Oxygen Delivery Method Bi-pap Bi-pap Oxygen Flow Rate (L/min) 65 Fraction of Inspired Oxygen (FIO2) 75 75 07/30/24 15:00 07/30/24 15:34 07/30/24 16:00 Temperature Temperature Source Pulse Rate 118 H 113 H 108 H Respiratory Rate 28 H 18 26 H Respiratory Effort Respiratory Depth Respiratory Pattern Blood Pressure 195/83 H 184/78 H 151/88 H Blood Pressure Mean 120 113 109 Blood Pressure Position Blood Pressure Location Pulse Ox 93 94 94 Oxygen Delivery Method Bi-pap Bi-pap Bi-pap Oxygen Flow Rate (L/min) Fraction of Inspired Oxygen (FIO2) 65 07/30/24 16:54 07/30/24 17:20 07/30/24 18:00 Temperature Temperature Source Pulse Rate 113 H 103 H 104 H Respiratory Rate 16 16 18 Respiratory Effort Respiratory Depth Respiratory Pattern Normal Blood Pressure 153/100 H 97/68 Blood Pressure Mean 117 77 Blood Pressure Position Blood Pressure Location Pulse Ox 100 98 97 Oxygen Delivery Method Mechanical Ventilator Mechanical Ventilator Oxygen Flow Rate (L/min) Fraction of Inspired Oxygen (FIO2) 40 07/30/24 19:07 07/30/24 19:21 07/30/24 20:00 Temperature 97.2 F L Temperature Source Axillary Pulse Rate 81 71 75 Respiratory Rate 16 16 16 Respiratory Effort Respiratory Depth Respiratory Pattern Blood Pressure 85/65 L 71/53 L 76/58 L Blood Pressure Mean 71 59 64 Blood Pressure Position Blood Pressure Location Pulse Ox 98 100 99 Oxygen Delivery Method Mechanical Ventilator Mechanical Ventilator Oxygen Flow Rate (L/min) Fraction of Inspired Oxygen (FIO2) 07/30/24 20:07 07/30/24 20:23 Temperature Temperature Source Pulse Rate 74 71 Respiratory Rate 16 16 Respiratory Effort Respiratory Depth Respiratory Pattern Blood Pressure 76/58 L 77/57 L Blood Pressure Mean 64 63 Blood Pressure Position Semi-Fowlers Semi-Fowlers Blood Pressure Location Left Arm Left Arm Pulse Ox 99 96 Oxygen Delivery Method Mechanical Ventilator Mechanical Ventilator Oxygen Flow Rate (L/min) Fraction of Inspired Oxygen (FIO2) Weight Weight: 184 lb 15.485 oz Body Mass Index (BMI) 26.5 Physical Exam Const Constitutional Narrative: Intubated mechanically ventilated, ongoing infusion with fentanyl and Precedex Eyes PERRL Neck no lymphadenopathy Resp Resp Narrative: Bilateral wheezes and decreased breath sounds Cardio regular rate Extremity Negative for normal to inspection, full ROM or no clubbing, cyanosis or edema Neuro No oriented x3 and No CN's II-XII intact bilaterally Neuro Narrative: Sedated Psych Negative for affect normal Results Medical Records Data Attestation: I reviewed the patient's medical records Lab / Micro Data Attestation: I reviewed the patient's lab results. 07/30/24 07:49 07/30/24 07:49 Labs: Laboratory Results - last 24 hr 07/30/24 07:49: WBC 19.4 H, RBC 3.44 L, Hgb 10.5 L, Hct 33.7 L, MCV 98.0 H, MCH 30.5, MCHC 31.2 L, RDW Std Deviation 48.9 H, RDW Coeff of Yloa 13.7, Plt Count 221, MPV 10.8, Immature Gran % (Auto) 0.600, Neut % (Auto) 87.2 H, Lymph % (Auto) 5.4 L, Frederick % (Auto) 6.1, Eos % (Auto) 0.2, Baso % (Auto) 0.5, Absolute Neuts (auto) 16.9 H, Absolute Lymphs (auto) 1.05, Nucleated RBC % 0, Sodium 135, Potassium 4.4, Chloride 92 L, Carbon Dioxide 33.4 H, Anion Gap 10, BUN 14, Creatinine 0.68 L, Est GFR (MDRD) Non-Af 99, BUN/Creatinine Ratio 20.7 H, Glucose 162 H, Lactic Acid < 1.0, Calcium 8.7, Troponin T High Sens 18 07/30/24 12:16: Troponin T Hi Sens 2 Hr 13 Micro: Microbiology 07/30/24 Unknown Sputum, Expectorated/Coughed Gram Stain - Final 07/30/24 08:06 Mucosa - Nose SARS-CoV-2, Influenza & RSV (PCR) - Final ABG Data ABG results: ABG 07/30/24 07/30/24 07/30/24 12:46 14:55 16:12 Specimen Type ART ART ART Sample Site R Radial R Radial R Radial pH 7.16 L* 7.13 L* 7.13 L* Bicarbonate Actual 40.2 H 41.2 H 45.1 H Total CO2 44 45 49 Base Excess 11 H 12 H 16 H O2 Saturation 82 L 90 L 88 L O2 % 60.0 65.0 65.0 ABG pCO2 113.9 H* 123.9 H* 136.7 H* ABG pO2 63 L 82 79 Octavio Test Positive N/A Positive Respiration Rate 10 10 O2 Delivery Device airvo BiPAP BiPAP Vent Mode Not entered Not entered Not entered Tidal Volume POC PEEP 8 8 Peak Inspir Pressure 14 Crit Call To/Read Back Yes Yes Yes Blood Gas Notified Whom lori sandoval Blood Gas Notified Time 12:48:07 15:00:48 16:14:13 Clinical Comments 60L 07/30/24 17:46 Specimen Type ART Sample Site R Radial pH 7.35 Bicarbonate Actual 41.0 H Total CO2 43 Base Excess 15 H O2 Saturation 94 L O2 % 40.0 ABG pCO2 74.8 H* ABG pO2 77 Octavio Test Positive Respiration Rate 16 O2 Delivery Device Adult Vent Vent Mode AC Tidal Volume 500.0 POC PEEP 5 Peak Inspir Pressure Crit Call To/Read Back Yes Blood Gas Notified Whom lori Blood Gas Notified Time 17:47:48 Clinical Comments Imaging Radiology Impression Chest X-Ray 07/30/24 08:30 IMPRESSION: Heterogeneous infiltration in the right upper lobe with loss of volume in the right upper lobe and possible air-fluid level as described. Infiltrate in the right lower lobe. Correlation with CT scan of the thorax is recommended for further evaluation. Reading Location: [id number] Chest CTA 07/30/24 08:50 IMPRESSION: No evidence of pulmonary embolism. Right hilar mass with postobstructive pneumonitis in the right upper lobe with a cavitation as described. 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 Reading Location: [id number] Chest X-Ray 07/30/24 16:21 IMPRESSION: 1. Appropriate positioning of the endotracheal tube. 2. Acceptable but slightly shallow positioning of the enteric tube with side hole probably just beyond the GE junction and tip within the proximal stomach. Consider slight advancement for optimal placement. 3. Otherwise similar appearance of the chest. Reading Location: [id number] Chest X-Ray 07/30/24 19:01 IMPRESSION: See above Reading Location: [facility] Assessment & Plan Assessment/Plan (1) Hypoxia: (2) Pneumonia: PLAN: Plan 69-year-old man with past medical history of lung cancer, degenerative cervical spine, peripheral vascular disease presents to the ED with concern regarding worsening shortness of breath and is now intubated with mechanical ventilation for acute on chronic respiratory failure. The likely reason for his rapid worsening is multifactorial with component of postobstructive bronchitis [recurrence of lung mass with pneumonia] that is seen on CT scan as well as COPD based on his clinical findings of bilateral wheezes, type II respiratory failure on ABG. We will start him on broad-spectrum antibiotics as well as steroid therapy for the COPD exacerbation component. He is accepted for transfer to [facility] and is currently awaiting a bed. # Acute on chronic respiratory failure - Mixed COPD exacerbation along with postobstructive pneumonitis - Continue ceftriaxone and azithromycin - IV methylprednisolone - Bronchopulmonary hygiene - Pulmonary medicine consult - Admit to ICU for further management - Head of bed elevation 30 degrees - Start stress ulcer prophylaxis given the intubation as well as ongoing steroid therapy - Repeat ABG on mechanical ventilation to assess for improvement in hypercapnia # Hypotension - Likely in the setting of ongoing sedation - Continue to monitor, continue Levophed infusion - Propofol was discontinued and started on Precedex #Recurrent lung mass with postobstructive pneumonitis - Plan for transfer to [facility] for further management of the lung mass - Continue IV antibiotics as above #COPD exacerbation - Antibiotics plus steroids as above - Continue monitoring the peak pressures on the ventilator to guide therapy #DVT risk - High risk of DVT given intubation as well as recent recurrent cancer - Started on enoxaparin 40 mg subcu #Code discussion - Patient is admitted to a critical care facility and there is always a risk of cervical and rapid deterioration that may lead to - This was discussed with the relative bedside - Patient wishes were to remain full code # Peripheral vascular disease Continue aspirin for now #Degenerative cervical disease - Continue to monitor Charges/Coding Visit Charges Inpatient E&M: 63681 Init Hosp L2
[2024-07-30 21:27] LABS: CPK Total, Creatine Kinase 216 U/L (24-195); Triglycerides 78 mg/dL
[2024-07-30 21:39] LABS: Pro- Brain NATRIURETIC PEPTIDE 1410 pg/mL (<=900)
[2024-07-31] VITALS (42 sets, daily range): BP systolic 91–135; BP diastolic 56–76; PULSE 71–102; RESP 16–27; TEMP 35.9–37.4; O2SAT 90–100; BMI 25.8
[2024-07-31] MEDS: 0.9% Normal Saline (1000mL) 1,000 ML 100 ML IV ×3 (00:46→20:44)
--- NOTE | 2024-07-31 00:52 | NURSING ---
Contacted Dr. Corrigan's about sepsis fluids. Pt triggered after IV sedation was started. sepsis fluid not indicated and could result in fluid overload. will continue to reevaluate.
[2024-07-31] MEDS: dexMEDEtomidine 400 MCG in 0.9% Normal Saline (100mL Bag) 96 ML 16.8 MCG CONT INF ×2 (01:26→06:20)
[2024-07-31] MEDS: Ipratropium/Albuterol Sulfate 3 ML AMPUL.NEB INHALATION ×6 (02:30→23:23)
[2024-07-31 03:59] LABS: Absolute Lymphocyte Count 0.59 X10^3/uL (0.83-4.51); Absolute Neutrophil Count 10.7 X10^3/uL (2.0-7.7); Basophil# 0.06 X10^3/uL; Basophil% 0.5 % (0-1); Hematocrit 30.4 % (40-54); Hemoglobin 9.7 g/dL (13.0-16.5); Lymphocyte # 0.59 X10^3/ul (0.83-4.51); Lymphocyte % 4.9 % (19-41); Mean Corp Hgb Conc 31.9 g/dL (32-36); Mean Corpuscular Hgb 30.5 pg (27.0-32.0); Mean Corpuscular Volume 95.6 fL (80-94); Mean Platelet Vol. 10.3 fl (6.2-12.0); Monocyte# 0.74 X10^3/uL; Monocyte% 6.1 % (0-10); NRBC Flagged by Analyzer 0 % (0-5); Neutrophil # 10.66 X10^3/uL (2.7-7.7); Neutrophil % 87.6 % (47-70); POSITIVE DIFFERENTIAL YES; POSITIVE MORPHOLOGY YES; Platelet Count 199 K/mm3 (150-450); RBC Distribution Width CV 13.9 % (11.6-14.6); Red Blood Count 3.18 M/mm3 (4.6-6.2); White Blood Count 12.2 K/mm3 (4.4-11.0)
[2024-07-31 04:10] LABS: International Normalized Ratio 1.3; Prothrombin Time (Protime)PT. 16.4 SECONDS (11.7-14.9)
[2024-07-31] MEDS: fentaNYL drip 100 ML 10 MCG CONT INF ×2 (04:17→14:10)
[2024-07-31] MEDS: Norepinephrine 8 MG in 0.9% Normal Saline (250mL Bag) 242 ML 18.8 MG CONT INF (04:17)
[2024-07-31 04:24] LABS: Magnesium 2.1 mg/dL (1.5-2.2); Phosphorus 1.6 mg/dL (2.7-4.5)
[2024-07-31 04:29] LABS: ALB/GLOB Ratio 0.9 RATIO (0.9-2.4); AST(SGOT) 33 U/L (<=37); Alanine Aminotransfer ALT/SGPT 16 U/L (<=46); Albumin, Serum 3.4 g/dL (3.4-4.8); Alkaline Phosphatase 55 U/L (40-129); Anion Gap 13 (5-15); BUN 24 mg/dL (4-19); BUN/Creat Ratio 22.2 RATIO (10-20); Bilirubin, Direct 0.12 mg/dL (0.00-0.30); Calcium,Total 8.5 mg/dL (7.6-11.0); Carbon Dioxide 30.3 mmol/L (21.0-32.0); Chloride 94 mmol/L (98-108); Creatinine, Serum 1.09 mg/dL (0.70-1.20); EST Glomerular Filtration Rate 73 (>60); Estimated Creatinine Clearance 64.18 ml/min (50-250); Globulin 3.8 g/dL (2.2-4.2); Glucose 129 mg/dL (70-99); Protein, Total 7.2 g/dL (5.9-8.4); Sodium Level 137 mmol/L (133-145); Total Bilirubin 0.21 mg/dL (0.00-1.30)
[2024-07-31 05:11] LABS: Differential Indicated SCAN CRITERIA MET
[2024-07-31 05:13] LABS: Differential Comment SCANNED
[2024-07-31] MEDS: Levothyroxine 75 MCG Tablet PO (05:56)
[2024-07-31] MEDS: TITRATION PARAMETER CHANGE 1 EACH IV (08:19)
--- NOTE | 2024-07-31 09:25 | CASEMGMT ---
Insurance review for hospitals In-network with [facility] if transfer is recommended is as follows: [facility], [facility], [place], [facility], [facility], [facility], , [facility], [facility], and [place]. Rayna Carrillo, Discharge Planning Asst.
[2024-07-31] MEDS: Enoxaparin 40 MG/0.4 ML Syringe SC (09:26)
[2024-07-31] MEDS: Primidone 250 MG Tablet PO ×2 (09:26→20:46)
[2024-07-31] MEDS: Magnesium Chloride 64 MG Delay Rel.Tablet PO (09:26)
[2024-07-31] MEDS: Pantoprazole Sodium 40 MG in 0.9% Normal Saline (100mL MB+) 100 ML 330 MG IV (11:02)
[2024-07-31] MEDS: dexMEDEtomidine 400 MCG in 0.9% Normal Saline (100mL Bag) 96 ML 20.4 MCG CONT INF ×3 (11:53→22:05)
[2024-07-31] MEDS: Piperacil/Tazobactam 3.375 GM in 0.9% Normal Saline (50mL MB+) 50 ML IV ×2 (13:32→20:52)
--- NOTE | 2024-07-31 15:24 | CHAPLAIN ---
Type of Pastoral Visit _x__ Initial Visit ___ Follow-up Visit ___ On-call Visit ___ General Patient Visit ___ Spiritual Assessment ___ Family Conference ___ Bereavement ___ Rapid Response ___ Code Blue ___ Other (describe below) Pastoral Care Referral From ___ Patient _x__ Family ___ Nurse ___ Physician ___ Workforce Development Assistant ___ Slitting Machine Operator ___ Other (describe below) Sacrament/Intervention _x__ Active listening ___ Anointing ___ Jew ___ Bereavement ___ Communion ___ Jaz exploration ___ ___ Life review _x__ Prayer ___ Reconciliation ___ Sacrament of Sick _x__ Supportive presence ___ Wedding ___ Other (describe below) Pastoral Comments patient is intubated but is able to open eyes, move hands, and nod head in response to questions; he is aware of his surroundings and of the family members that are in the room; all agree that a prayer would be good; family members say that all they need is for the next thing to happen for a transfer of patient to another hospital for more treatment
--- NOTE | 2024-07-31 18:45 | PN.HOSP_ITS ---
Reason for Visit Reason for Visit: Diagnoses Pneumonia, unspecified organism (07/30/24) Hypoxemia (07/30/24) Subjective Subjective Patient was seen and examined today, he is under light sedation on the ventilator at this time. I made a call to [facility] to see if they would take the patient in transfer because we do not have a bed available at the [facility] at this time, the critical care physician on-call stated that it would be better if the patient went to [facility] because he had his cancer treatment there (lung cancer treatment was completed there in 2019), he stated that if he was still not transferred by tomorrow that I could call back on Saturday and see if we could transfer him to [facility] at that time. I relayed this to the nephew who is his closest relative Objective Data Objective Data Vital Signs: Vital Signs Temp Pulse Resp BP Pulse Ox O2 Del Method O2 Flow Rate 96.6 F L 82 20 H 112/62 93 Mechanical Ventilator 65 07/31/24 16:00 07/31/24 18:00 07/31/24 18:00 07/31/24 18:00 07/31/24 18:00 07/31/24 18:00 07/30/24 14:10 FiO2 30 07/31/24 18:00 Oxygen Flow Rate (L/min) 65 Oxygen Delivery Method Mechanical Ventilator Weight: 81.783 kg Body Mass Index (BMI) 25.8 Intake & Output: Intake and Output for Last 24 Hours 07/29/24 07/30/24 07/31/24 23:59 23:59 23:59 Intake Total 448.04 / 467.34 1967.13 / 1967.13 Output Total 410 / 410 Balance 448.04 / 467.34 1557.13 / 1557.13 Lab / Micro Data 07/31/24 03:50 07/31/24 03:50 Labs: Laboratory Results - last 24 hr 07/30/24 07:49: Total Creatine Kinase 216 H, NT pro BNP II 1410 H, Triglycerides 78 07/31/24 03:50: WBC 12.2 H, RBC 3.18 L, Hgb 9.7 L, Hct 30.4 L, MCV 95.6 H, MCH 30.5, MCHC 31.9 L, RDW Std Deviation 49.0 H, RDW Coeff of Yola 13.9, Plt Count 199, MPV 10.3, Immature Gran % (Auto) 0.900, Neut % (Auto) 87.6 H, Lymph % (Auto) 4.9 L, [place] % (Auto) 6.1, Eos % (Auto) 0.0, Baso % (Auto) 0.5, Absolute Neuts (auto) 10.7 H, Absolute Lymphs (auto) 0.59 L, Nucleated RBC % 0, Differential Comment SCANNED, PT 16.4 H, INR 1.3, Sodium 137, Potassium 5.0, C hloride 94 L, Carbon Dioxide 30.3, Anion Gap 13, BUN 24 H, Creatinine 1.09, Estim Creat Clear Calc 64.18, Est GFR (MDRD) Non-Af 73, BUN/Creatinine Ratio 22.2 H, Glucose 129 H, Calcium 8.5, Phosphorus 1.6 L, Magnesium 2.1, Total Bilirubin 0.21, Direct Bilirubin 0.12, AST 33, ALT 16, Alkaline Phosphatase 55, Total Protein 7.2, Albumin 3.4, Globulin 3.8, Albumin/Globulin Ratio 0.9, TSH 4.390 H Micro: Microbiology 07/31/24 04:00 Wound - Nose Skin and Soft Tissue MRSA/MSSA (PCR - Final 07/31/24 04:00 Urine Catheter - Catheter Legionella Antigen - Final 07/31/24 04:00 Urine Catheter - Catheter Streptococcus pneumoniae Antigen (M - Final 07/31/24 01:20 Mucosa - Nasopharyngeal Coronavirus COVID-19 PCR - Final 07/31/24 01:20 Mucosa - Nasopharyngeal Respiratory Panel (PCR) - Final 07/30/24 Unknown Sputum, Expectorated/Coughed Gram Stain - Final 07/30/24 08:06 Mucosa - Nose SARS-CoV-2, Influenza & RSV (PCR) - Final Radiography Diagnostic Testing: Radiology Impression Chest X-Ray 07/30/24 19:01 IMPRESSION: See above Reading Location: [facility] Physical Exam Const alert and no apparent distress Constitutional Narrative: Patient is lightly sedated on the ventilator General Appearance: cooperative, well kempt and well developed Orientation / Consciousness: awake HEENT normocephalic, head/scalp atraumatic and moist oral mucous membranes Eyes PERRL, EOMs intact bilaterally and conjunctivae normal Neck no JVD and thyroid normal General: trachea midline Resp normal respiratory effort, no retractions, no use of accessory muscles and clear to auscultation bilaterally Auscultation: Negative for rales, rhonchi or wheezes Cardio regular rate, regular rhythm, S1 normal heart sound, S2 normal heart sound, no murmurs, no rub and no gallops GI normal to inspection, nondistended, normoactive bowel sounds, soft to palpation, non-tender and non-distended Extremity no clubbing, cyanosis or edema Skin no rashes or lesions noted General Skin Exam: no breakdown Neuro CN's II-XII intact bilaterally, moves all extremities, no focal motor deficits and no sensory deficits noted Neuro Narrative: Patient is lightly sedated on the ventilator Sensorium / Orientation: awake and alert Psych affect normal Psych Narrative: Patient is under light sedation on the ventilator Assessment & Plan Assessment/Plan (1) Lung cancer: PLAN: Plan 1. Acute combined respiratory failure secondary to postobstructive pneumonia from suspected neoplasm in the lung-patient remains on the ventilator at this time and remains stable, he is off pressor agents at this time and he is continued on Zosyn. I will contact [facility] in the morning if the patient has not been transferred to [facility] #2 suspected recurrent lung cancer-patient has a history of squamous cell cancer in the past and underwent vigorous treatment with chemotherapy, immunotherapy, and radiation. He was suspected to be cancer free over the last 6 years. #3 postobstructive pneumonia secondary to suspected lung cancer-patient will be treated with Zosyn #4 chronic obstructive pulmonary disease-complicates care, management, recovery, and prognosis #5 hypothyroidism-patient remains on Synthroid #6 essential hypertension-patient remains on his metoprolol at this time Total clinical time spent by myself addressing the patient's medical issues, reviewing all of his data, and collaborating with patient's care team: 50 minutes Charges/Coding Visit Charges Inpatient E&M: 70180 [facility] Hosp L3
[2024-07-31] MEDS: Chlorhexidine 15 ML PO (20:59)
[2024-08-01] VITALS (26 sets, daily range): BP systolic 122–145; BP diastolic 66–93; PULSE 61–92; RESP 14–22; TEMP 36.2–36.7; O2SAT 93–99; BMI 26.8
[2024-08-01] MEDS: fentaNYL drip 100 ML 10 MCG CONT INF (00:21)
[2024-08-01] MEDS: CHLORHEXIDINE GLUC 2% CLOTH 1 EACH TOWELETTE TOPICAL (02:45)
[2024-08-01] MEDS: dexMEDEtomidine 400 MCG in 0.9% Normal Saline (100mL Bag) 96 ML 24.5 MCG CONT INF (02:45)
[2024-08-01] MEDS: Ipratropium/Albuterol Sulfate 3 ML AMPUL.NEB INHALATION ×4 (04:01→15:00)
[2024-08-01 04:26] LABS: Absolute Lymphocyte Count 0.75 X10^3/uL (0.83-4.51); Absolute Neutrophil Count 6.9 X10^3/uL (2.0-7.7); Basophil# 0.01 X10^3/uL; Basophil% 0.1 % (0-1); Hematocrit 25.4 % (40-54); Hemoglobin 8.1 g/dL (13.0-16.5); Lymphocyte # 0.75 X10^3/ul (0.83-4.51); Lymphocyte % 9.1 % (19-41); Mean Corp Hgb Conc 31.9 g/dL (32-36); Mean Corpuscular Hgb 30.1 pg (27.0-32.0); Mean Corpuscular Volume 94.4 fL (80-94); Mean Platelet Vol. 10.2 fl (6.2-12.0); Monocyte# 0.52 X10^3/uL; Monocyte% 6.3 % (0-10); NRBC Flagged by Analyzer 0 % (0-5); Neutrophil # 6.85 X10^3/uL (2.7-7.7); Neutrophil % 82.7 % (47-70); POSITIVE MORPHOLOGY YES; Platelet Count 141 K/mm3 (150-450); RBC Distribution Width CV 14.4 % (11.6-14.6); RBC Distribution Width SD 49.5 fl (35.1-43.9); Red Blood Count 2.69 M/mm3 (4.6-6.2); White Blood Count 8.3 K/mm3 (4.4-11.0)
[2024-08-01 04:42] LABS: Allen Test Positive; Base Excess 11 mmol/L (-2 to +2); Bicarbonate 34.4 mmol/L (22-26); Blood Gas Specimen Type ART; Mode AC; O2 Delivery Device Adult Vent; PEEP 5; PO2 58 mmHG (75-100); RR 16; SITE L Radial; SO2 91 % (95-99); Total Carbon Dioxide 36 mmol/L; pH 7.46 (7.35-7.45)
[2024-08-01 04:43] LABS: Differential Indicated SCAN CRITERIA MET
[2024-08-01 04:58] LABS: Differential Comment SCANNED
[2024-08-01 05:07] LABS: Anion Gap 9 (5-15); BUN 27 mg/dL (4-19); BUN/Creat Ratio 34.3 RATIO (10-20); Calcium,Total 8.2 mg/dL (7.6-11.0); Carbon Dioxide 28.7 mmol/L (21.0-32.0); Chloride 100 mmol/L (98-108); EST Glomerular Filtration Rate 95 (>60); Estimated Creatinine Clearance 87.45 ml/min (50-250); Glucose 136 mg/dL (70-99); Potassium 3.8 mmol/L (3.3-5.1); Sodium Level 138 mmol/L (133-145)
[2024-08-01] MEDS: Levothyroxine 75 MCG Tablet PO (05:43)
[2024-08-01] MEDS: Piperacil/Tazobactam 3.375 GM in 0.9% Normal Saline (50mL MB+) 50 ML IV ×2 (05:43→14:33)
[2024-08-01] MEDS: TITRATION PARAMETER CHANGE 1 EACH IV (05:44)
[2024-08-01] MEDS: 0.9% Saline Lock 10 ML Syringe IV (06:48)
[2024-08-01] MEDS: 0.9% Normal Saline (1000mL) 1,000 ML 100 ML IV ×2 (06:48→16:26)
[2024-08-01] MEDS: dexMEDEtomidine 400 MCG in 0.9% Normal Saline (100mL Bag) 96 ML 27.6 MCG CONT INF (06:48)
[2024-08-01] MEDS: predniSONE 20 MG Tablet 40 MG PO (09:06)
[2024-08-01] MEDS: Chlorhexidine 15 ML PO (09:06)
[2024-08-01] MEDS: Enoxaparin 40 MG/0.4 ML Syringe SC (09:06)
[2024-08-01] MEDS: Magnesium Chloride 64 MG Delay Rel.Tablet PO (09:07)
[2024-08-01] MEDS: Primidone 250 MG Tablet PO (09:07)
[2024-08-01] MEDS: Aspirin 81 MG TAB.CHEW GT (10:01)
[2024-08-01] MEDS: Metoprolol Tartrate 25 MG Tablet 75 MG GT (10:02)
[2024-08-01] MEDS: fentaNYL drip 100 ML 15 MCG CONT INF (10:02)
[2024-08-01] MEDS: dexMEDEtomidine 400 MCG in 0.9% Normal Saline (100mL Bag) 96 ML 31.8 MCG CONT INF ×3 (10:02→16:27)
[2024-08-01] MEDS: Pantoprazole Sodium 40 MG in 0.9% Normal Saline (100mL MB+) 100 ML 330 MG IV (10:10)
--- NOTE | 2024-08-01 12:38 | PCM.DC.SUM ---
Providers Date of Admission: 07/30/24 Date of Discharge: 08/01/24 Primary Care Physician: NORMAN Branch Reason For Visit: COPD EXACERBATION Diagnosis Discharge Diagnosis (1) Lung cancer: Status: Acute Code(s): C34.90 - Malignant neoplasm of unspecified part of unspecified bronchus or lung Plan 1. Acute combined respiratory failure secondary to postobstructive pneumonia from suspected neoplasm in the lung-patient remains on the ventilator at this time and remains stable, he is off pressor agents at this time and he is continued on Zosyn. 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 He was suspected to be cancer free over the last 6 years. #3 postobstructive pneumonia secondary to suspected lung cancer-patient will be treated with Zosyn #4 chronic obstructive pulmonary disease-complicates care, management, recovery, and prognosis #5 hypothyroidism-patient remains on Synthroid #6 essential hypertension-patient remains on his metoprolol at this time Total clinical time spent by myself addressing the patient's medical issues, reviewing all of his data, and collaborating with patient's care team: 50 minutes Medications at Discharge Home Medications aspirin 81 mg tablet,delayed release (Adult Low Dose Aspirin) 81 mg PO DAILY HEALTH 02/15/21 guaifenesin 1,200 mg tablet, extended release 12 hr (Mucinex) 1,200 mg PO DAILY cough, congestion 02/16/21 ipratropium 0.5 mg-albuterol 3 mg (2.5 mg base)/3 mL nebulization soln See Rx Instructions .Route .COMPLEX #180 mL 06/15/22 albuterol sulfate 90 mcg/actuation aerosol inhaler See Rx Instructions .Route .COMPLEX #18 ea 08/14/22 omeprazole 40 mg capsule,delayed release See Rx Instructions .Route .COMPLEX #90 caps 11/02/22 budesonide 160 mcg-glycopyr 9 mcg-formot 4.8 mcg/actuation HFA inhaler (Breztri Aerosphere) 2 inh inhalation BID 07/30/24 levothyroxine 75 mcg tablet 75 mcg PO DAILY 07/30/24 magnesium 200 mg tablet 200 mg PO DAILY 07/30/24 metoprolol succinate 25 mg tablet,extended release 24 hr 75 mg PO DAILY 07/30/24 primidone 250 mg tablet 250 mg PO BID 07/30/24 Hospital Course Operations None Procedures Intubation Summary of Care Provided Minutes Spent on Discharge: 32 Hospital Course: 69-year-old white male seen in the emergency room at [facility] with a chief complaint of shortness of breath. Patient had had a past history of lung cancer which was treated, patient finishes treatment approximately 6 years prior. On the time of presentation to the ER, patient was requiring nasal cannula oxygen at 6 L, ABG showed acute combined respiratory failure with acidosis. Patient's white blood cell count was elevated at 19.4, hemoglobin was 10.5, BNP was elevated at 1410 troponin was unremarkable. Chest x-ray showed a heterogeneous infiltration of the right upper lobe with loss of volume in the right upper lobe and possible air-fluid levels. There is an infiltrate in the right lower lobe, CTA of the chest was obtained which showed no evidence of pulmonary embolism, there was noted to be a right hilar mass with postobstructive pneumonia in the right upper lobe with a cavitation. There was heterogeneous appearance of the right lower lobe with increased interstitial markings as well as irregular nodular density suggestive of the right bronchogenic carcinoma with metastases. Patient was transition to [facility] due to increasing respiratory failure, rather repeat blood gas showed him to be acidotic and he was placed on BiPAP, subsequent blood gas showed the acidosis to continue and decision was made to intubate the patient. Before this intubation happened, [facility] was contacted and [facility] agreed to take the patient at their [place] location-however there was not a bed available and the patient was moved to the ICU after he was intubated for further care. Patient was on pressor agents for a time and these were weaned off. Patient remained on IV antibiotics during his hospitalization and aerosol treatments. I had conversation with his nephew who was his closest next of kin, due to the lack of bed availability first [facility] was contacted, they refused to take the patient and suggested that [facility] Be contacted and if the patient was still in the hospital on 08/02/2023, they stated it would be okay to contact [facility] again to see if we could move the patient on 08/02/2023. The patient was not able to be transferred to [facility], so on 08/02/2023, I contacted [facility] and they refused to take the patient stating that his records were at the [facility] and they did not want to except the patient. I then talked with the nephew and got permission to contact [facility] who finally excepted the patient and a bed was available. Patient was transferred by ambulance to [facility] on 08/02/2023 in stable condition. On that date, patient was seen and examined by myself: On examination he was lightly sedated on the ventilator, he was alert and able to nod his head to questions. Vital signs as documented. Skin warm and dry and without overt rashes. Neck without JVD, neck was supple, trachea midline, thyroid was normal. Lungs clear bilaterally, normal air movement was noted. Heart exam notable for regular rhythm, normal sounds and absence of murmurs, rubs or gallops. Abdomen unremarkable and without evidence of organomegaly, masses, or abdominal aortic enlargement. Bowel sounds are present, abdomen is not distended. Extremities nonedematous, no cyanosis was noted, no clubbing was noted. Neuro: Cranial nerves II through XII are grossly intact, no focal motor deficits were noted, sensation to light touch and pinprick intact, motor exam 5/5 throughout. Psych: Patient is alert and lightly sedated on the ventilator, he does not appear anxious or depressed, he does not appear agitated. Patient was transferred in stable condition on 08/02/2023 to [facility] for further care. Weight / BMI Weight Weight: 84.9 kg Body Mass Index (BMI) 26.8 ABG / Lab / Microbiology Data 08/01/24 04:20 08/01/24 04:20 Laboratory: Laboratory Results - last 24 hr 08/01/24 04:20: WBC 8.3, RBC 2.69 L, Hgb 8.1 L, Hct 25.4 L, MCV 94.4 H, MCH 30.1, MCHC 31.9 L, RDW Std Deviation 49.5 H, RDW Coeff of Yola 14.4, Plt Count 141 L, MPV 10.2, Immature Gran % (Auto) 1.800 H, Neut % (Auto) 82.7 H, Lymph % (Auto) 9.1 L, Converse % (Auto) 6.3, Eos % (Auto) 0.0, Baso % (Auto) 0.1, Absolute Neuts (auto) 6.9, Absolute Lymphs (auto) 0.75 L, Nucleated RBC % 0, Differential Comment SCANNED, Sodium 138, Potassium 3.8, Chloride 100, Carbon Dioxide 28.7, Anion Gap 9, BUN 27 H, Creatinine 0.80, Estim Creat Clear Calc 87.45, Est GFR (MDRD) Non-Af 95, BUN/Creatinine Ratio 34.3 H, Glucose 136 H, Calcium 8.2 Microbiology: Microbiology 07/30/24 08:06 Blood Culture (Wb) - Right Hand Blood Culture - Preliminary No growth in 48 hours. 07/30/24 07:49 Blood Culture (Wb) - Anticubital Right Blood Culture - Preliminary No growth in 48 hours. 07/31/24 04:00 Wound - Nose Skin and Soft Tissue MRSA/MSSA (PCR - Final 07/31/24 04:00 Urine Catheter - Catheter Legionella Antigen - Final 07/31/24 04:00 Urine Catheter - Catheter Streptococcus pneumoniae Antigen (M - Final 07/31/24 01:20 Mucosa - Nasopharyngeal Coronavirus COVID-19 PCR - Final 07/31/24 01:20 Mucosa - Nasopharyngeal Respiratory Panel (PCR) - Final 07/30/24 Unknown Sputum, Expectorated/Coughed Gram Stain - Final 07/30/24 08:06 Mucosa - Nose SARS-CoV-2, Influenza & RSV (PCR) - Final ABG: ABG 08/01/24 04:39 Specimen Type ART Sample Site L Radial pH 7.46 H Bicarbonate Actual 34.4 H Total CO2 36 Base Excess 11 H O2 Saturation 91 L O2 % 30.0 ABG pCO2 48.0 H ABG pO2 58 L Octavio Test Positive Respiration Rate 16 O2 Delivery Device Adult Vent Vent Mode AC Tidal Volume 500.0 POC PEEP 5 D/C Instructions DC O2, CPAP, BIPAP Needs Home O2 Discharge instructions: No Meaningful Use Info Meaningful Use Meaningful Use Diagnoses (Choose all that apply): None applicable Ischemic Stroke Statin Dosing Therapy Reference: STATIN DOSE THERAPY REFERENCE: * Patients > 75 years receive moderate or high dose statin therapy. * Patients 75 years or YOUNGER should receive HIGH intensity statin dose unless contraindicated. You will be required to document reason for non-treatment if statin daily dose does not meet guidelines. HIGH DOSE STATIN THERAPY DAILY Atorvastatin > than or = to 40 mg Rosuvastatin > than or = to 20 mg Amlodipine + Atorvastatin > than or = to 2.5/40 mg Ezetimibe + Simvastatin 10/80 mg Simvastatin 80mg Discharge Plan Admission Admit Date/Time: 07/30/24 20:40 Attending Provider: Sarabjit Telles Primary Care Provider: Sarabjit Chavarria Consulting Providers: Mir Leigh Discharge Orders/Prescriptions Prescriptions: No Action aspirin [Adult Low Dose Aspirin] 81 mg tablet,delayed release (DR/EC) 81 mg PO DAILY guaifenesin [Mucinex] 1,200 mg Tablet Extended Release 12hr 1,200 mg PO DAILY levothyroxine 75 mcg tablet 75 mcg PO DAILY primidone 250 mg tablet 250 mg PO BID Breztri Aerosphere 160-9-4.8 mcg/actuation HFA aerosol inhaler 2 inh INHALATION BID magnesium 200 mg tablet 200 mg PO DAILY metoprolol succinate 25 mg tablet extended release 24 hr 75 mg PO DAILY ipratropium-albuterol 0.5 mg-3 mg(2.5 mg base)/3 mL solution for nebulization See Rx Instructions .ROUTE .COMPLEX Qty: 180 1RF Dose Instruction: INHALE 3 ML EVERY 6 HOURS NEEDED FOR SHORTNESS OF BREATH Rx Instructions: INHALE 3 ML EVERY 6 HOURS NEEDED FOR SHORTNESS OF BREATH albuterol sulfate 90 mcg/actuation HFA aerosol inhaler See Rx Instructions .ROUTE .COMPLEX Qty: 18 3RF Dose Instruction: INHALE 2 PUFFS BY MOUTH EVERY 6 HOURS NEEDED FOR SHORTNESS OF BREATH Rx Instructions: INHALE 2 PUFFS BY MOUTH EVERY 6 HOURS NEEDED FOR SHORTNESS OF BREATH omeprazole 40 mg capsule,delayed release(DR/EC) See Rx Instructions .ROUTE .COMPLEX Qty: 90 0RF Dose Instruction: TAKE 1 CAPSULE BY MOUTH EVERY DAY Rx Instructions: TAKE 1 CAPSULE BY MOUTH EVERY DAY Referrals / Follow Up: Sarabjit Chavarria, NCR OPERATOR-C [Primary Care Provider] - Disposition Discharge Orders: Discharge Patient (Routine); Ordered 08/01/24 Ordered By: Dr. Sarabjit Telles Charges/Coding Visit Charges Inpatient E&M: 80396 Disch Hosp >30min
[2024-08-01] MEDS: fentaNYL drip 100 ML 17.5 MCG CONT INF (16:26)
--- NOTE | 2024-08-01 17:00 | NURSING ---
[facility] arrived to transport patient to [facility], report given.
--- NOTE | 2024-08-01 17:37 | NURSING ---
Patient left with [facility] to [facility] Fentanyl, precedex, zosyn and NS were infusing. POA notified
== END 2024-08-01 17:39 | disposition short-term general hospital (02) | DRG 208 ==
LOC: ED 17:32 → ICU 21:50
PROVIDERS: Admitting Provider Internal Medicine; Emergency Provider Emergency Medicine; PCP Nurse Practitioner Family; Visit Provider Internal Medicine
DX: J96.01 Acute respiratory failure with hypoxia (principal); J18.9 Pneumonia, unspecified organism; C34.91 Malignant neoplasm of unspecified part of right bronchus or lung; J44.0 Chronic obstructive pulmonary disease with (acute) lower respiratory infection; J44.1 Chronic obstructive pulmonary disease with (acute) exacerbation; I10 Essential (primary) hypertension; I71.40 Abdominal aortic aneurysm, without rupture, unspecified; E03.9 Hypothyroidism, unspecified; D64.9 Anemia, unspecified; J96.02 Acute respiratory failure with hypercapnia; I95.2 Hypotension due to drugs; I45.10 Unspecified right bundle-branch block; M50.30 Other cervical disc degeneration, unspecified cervical region; I73.9 Peripheral vascular disease, unspecified; T40.415A Adverse effect of fentanyl or fentanyl analogs, initial encounter; T41.295A Adverse effect of other general anesthetics, initial encounter; Z92.21 Personal history of antineoplastic chemotherapy; Z92.3 Personal history of irradiation; Z87.891 Personal history of nicotine dependence; Z79.82 Long term (current) use of aspirin; Z79.899 Other long term (current) drug therapy; Z79.890 Hormone replacement therapy; Z95.820 Peripheral vascular angioplasty status with implants and grafts
CPT/HCPCS: 31500; 31720; 36600; 71045; 71046; 71275; 80048; 80053; 82248; 82550; 82803; 83605; 83735; 83880; 84100; 84443; 84478; 84484; 85025; 85610; 87040; 87070; 87077; 87205; 87449; 87631; 87633; 87635; 87640; 93005; 94002; 94003; 94640; 94660; 97802; 99252; 99285; Q9967; A4216; G0463; J0696